=== PATIENT | female | born 1945 | race Caucasian/White ===

== ENCOUNTER → 2016-09-22 | Outpatient (CLI) | payer MEDICARE, BC ==
[~2016-09-22] MED LIST: ACYC200C PO; ASP325TEC PO; ASP81CT PO; ASPI-983 PO; ATEN-147 PO; ATEN-156 PO; ATOR40TA PO; AZEL50GE5 TP; BNZ10T PO; BNZ40T PO; CLON0.1T PO; CLOP75TA PO; CLOP75TA69 PO; CODE118S2 PO; D50KC PO; DCS100C PO; EST05TD TD; ESTR42.52 VG; FLUC200T PO; FLUO15CR8 TP; HYDR200T PO; HYDROCORTISONE VAL; KENALOG; MULT1CAP27 PO; NYST1000 PO; PNT40TEC PO; SENN8.6T17 PO; SPIR25TA3 PO; UBID100C17 PO; [UNRECOGNIZED DRUG - CODE] IJ; [UNRECOGNIZED DRUG - CODE] TP; clindamycin
--- OUTSIDE RECORDS SUMMARY | 2016-09-22 12:47 | XMS REPORT | Continuity of Care Document ---
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 If you do not see the information that you expected, contact Release of Information in the Health Information Management department at [phone] for further assistance in locating additional records.[facility] Active Allergies and Adverse Reactions Allergen Noted Date Severity Reactions Comments Beta Blockers 05/28/2014 PALPITATIONS Calcium Channel Blocking 05/28/2014 PALPITATIONS Agent Diltiazem Analogues Carafate 06/18/2014 ITCHING Cardizem 05/28/2014 RASH Celexa 06/18/2014 DIZZINESS Ciprofloxacin 06/18/2014 STOMACH UPSET Reflux Clindamycin 06/18/2014 RASH Darvocet 05/28/2014 NAUSEA AND VOMITING Epinephrine 05/28/2014 UNKNOWN Erythromycin 05/28/2014 NAUSEA AND VOMITING Keflex 06/18/2014 ITCHING Lanoxin 05/28/2014 PALPITATIONS Levofloxacin 01/10/2016 Low UNKNOWN Metronidazole 10/22/2014 Medium RASH Mycophenolate Sodium 01/10/2016 Low UNKNOWN Naproxen 05/28/2014 UNKNOWN Oxybutynin 06/18/2014 SEE COMMENTS Dry mouth Pcn 05/28/2014 HEADACHE, NAUSEA AND VOMITING Prednisone 05/28/2014 UNKNOWN Prilosec 05/28/2014 STOMACH UPSET Reglan 05/28/2014 UNKNOWN Seldane 05/28/2014 RASH Verapamil 06/18/2014 NAUSEA AND VOMITING, PALPITATIONS Current Medications Prescription Sig. Disp. Refills Start End Date Status Date aspirin EC 81 mg tablet Take 81 mg by mouth at Active bedtime daily. estradiol (CLIMARA) 0.05 Apply 1 Patch to top of Active mg/24 hr patch skin as directed every 7 days. atorvastatin (LIPITOR) 40 Take 40 mg by mouth at Active mg tablet bedtime daily. clopiDOGrel (PLAVIX) 75 Take 75 mg by mouth every Active mg tablet 48 hours. cholecalciferol(+) Take 50,000 Units by Active (Vitamin D3) 50,000 units mouth every 7 days. capsule benazepril(+) (LOTENSIN) Take 10 mg by mouth Active 10 mg tablet daily. fluconazole (DIFLUCAN) Take 200 mg by mouth Active 200 mg tablet every [address] Take 40 mg by mouth as Active (PROTONIX) 40 mg tablet Needed. TRIAMCINOLONE ACETONIDE Inject to area(s) as Active (KENALOG IJ) directed every 30 days. azelaic acid(+) (FINACEA) Apply to affected area Active 15 % gel topical gel daily. cloNIDine HCl (CATAPRESS) Take 0.1 mg by mouth Active 0.1 mg tablet daily. verapamil SR (VERELAN) Take 1 Cap by mouth 180 Cap 1 01/10/20 Active 120 mg capsule daily. if tolerated, 16 increase to 2 daily after 1 week Active Problems Problem Noted Date SVT (supraventricular tachycardia) (HCC) 06/18/2014 Overview: 06/18/14 EPS + SVT RFA: 1. 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 2. Successful AVN Modification/ Slow Pathway Ablation. 3. At the completion of the procedure, No slow pathway function was present and no inducible arrhythmias despite isuprel administration. History of PSVT (paroxysmal supraventricular tachycardia) 05/28/2014 Overview: Unable to tolerate calcium channel blockers, beta blockers and lanoxin. Has previously refused any EP evaluation. CAD (coronary artery disease) Overview: A. 01/2008: Cath: WAGNER to RCA B. 05/2013: Cath: relatively mild CAD, widely patent stent in RCA without any significant stent restenosis. LVEF 65-70%. 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 Respiratory Rate - - Height 1.651 m (5' 5") 01/10/2016 9:36 AM CDT Weight 83.235 kg (183 lb 8 oz) 01/10/2016 9:36 AM CDT Body Mass Index 30.54 01/10/2016 9:36 AM CDT Oxygen Saturation 95% 06/19/2014 9:12 AM MACHINE FANCY STITCHER Plan of Care Health Maintenance Due Date Last Done Comments Hepatitis C Screening 1945 Physical (Comprehensive) 1952 Exam Pertussis Vaccine 1956 Tetanus Vaccine 1962 Breast Cancer Screening 1985 Colorectal Cancer 1995 Screening Shingles Vaccine 2005 Osteoporosis Screening 2010 Prevnar/Pneumovax (#1) 2010 Influenza Vaccine 03/16/2016 Results from Last 3 Months Not on file
--- NOTE | 2016-09-25 17:30 | Diagnostic Imaging Report ---
Bilateral screening mammogram. The current study was also evaluated with a Computer Aided Detection (CAD) system. INDICATION: Screening. No current complaints stated on the questionnaire. COMPARISON: 08/31/14. FINDINGS: The breasts are composed of scattered fibroglandular densities. There are benign-appearing calcifications seen. No mass, architectural distortion or suspicious cluster of calcification. Allowing for technique and positional differences, no suspicious change is seen. IMPRESSION: No significant change. ACR BI-RADS Category 2: Benign findings. Result letter will be mailed to the patient. Note: At least 10% of breast cancer is not imaged by mammography. Dictated by: Dictated on workstation # [id number]
== END ==
LOC: RAD 12:43
PROVIDERS: ATTEND Obstetrics & Gynecology
DX: Z12.31 Encounter for screening mammogram for malignant neoplasm of breast (principal)
CPT/HCPCS: 77067

== ENCOUNTER → 2017-06-11 | Outpatient (CLI) | payer MEDICARE, BC ==
[~2017-06-11] MED LIST changes: +ERGO50006 PO
--- NOTE | 2017-06-11 21:07 | Diagnostic Imaging Report ---
EXAMINATION: Three views of the right knee. INDICATION: Right knee pain. FINDINGS: There is no fracture, dislocation, or radiopaque foreign body. Prominent osteophytes are seen mostly in the lateral and patellofemoral compartments. There is suggestion of joint space narrowing in the patellofemoral compartment. No significant suprapatellar effusion is identified. IMPRESSION: Trib-ao-nwzkduvl degenerative changes. Dictated by: Dictated on workstation # [id number]
== END ==
LOC: RAD 10:54
PROVIDERS: ATTEND Nurse Practitioner Family
DX: M17.11 Unilateral primary osteoarthritis, right knee (principal)
CPT/HCPCS: 73562

== ENCOUNTER → 2018-05-21 | Outpatient (CLI) | payer MEDICARE, BC ==
[~2018-05-21] VITALS: Ht 165.1 cm; Wt 82.6 kg
[~2018-05-21] MED LIST changes: +CATHETER FLUSH 10 ML SYR IV PRN; -HYDR200T PO; +HYDR200T78 PO; +REGADENOSON 0.4 MG/5 ML SYR (LEXISCAN) IV ONE
[2018-05-21 08:59] VITALS: BP 167/75
[2018-05-21 09:16] VITALS: BP 173/80
--- NOTE | 2018-05-22 09:12 | STRESS TEST ---
DATE OF SERVICE: 05/21/2018 RESTING AND POST REGADENOSON TECHNETIUM-99M TETROFOSMIN SPECT CT IMAGING ORDERING PHYSICIAN: Dr. Cui. PRIMARY PHYSICIAN: Dr. Verde. CLINICAL DIAGNOSIS: Coronary artery disease. Baseline images were carried out after injection of 8.59 mCi of technetium-99m Tetrofosmin. This was followed by 0.4 mg of Regadenoson and 27.7 mCi of technetium-99m Tetrofosmin for stress imaging. The electrocardiogram showed sinus rhythm with left bundle branch block at the baseline and the electrocardiogram did not change significantly with the Regadenoson infusion. The patient tolerated the procedure well. Review of images at rest and following stress indicates a somewhat diminished uptake in a very localized portion of the apex likely traveling representative of apical thinning. This did not change between resting and stress images. Gated images show a normal global left ventricular systolic function with normal regional wall motion, including the apex. Left ventricular ejection fraction is calculated to be 73%. Left ventricular end diastolic volume is 40 mL. TID is absent (0.91). CONCLUSIONS: 1. No evidence of any significant myocardial ischemia or infarction on this study. 2. Normal regional wall motion. 3. Normal global left ventricular systolic function with a calculated ejection fraction of 73%. Job ID: [id number] DocumentID: [id number] Dictated Date: 05/22/2018 08:37:08 Direct Support Professional Date: 05/22/2018 09:11:16 Dictated By: ANUPAM CUI MD, MA, FACP, FACC,
== END ==
LOC: CARD 06:57
PROVIDERS: ATTEND Internal Medicine Cardiovascular Disease
DX: I95.1 Orthostatic hypotension (principal); I10 Essential (primary) hypertension; I25.10 Atherosclerotic heart disease of native coronary artery without angina pectoris; I77.89 Other specified disorders of arteries and arterioles; Z86.79 Personal history of other diseases of the circulatory system
CPT/HCPCS: 78452; 93017

== ENCOUNTER → 2018-06-21 | Outpatient (CLI) | payer MEDICARE, BC ==
[~2018-06-21] MED LIST changes: -CATHETER FLUSH 10 ML SYR IV PRN; -REGADENOSON 0.4 MG/5 ML SYR (LEXISCAN) IV ONE
== END ==
LOC: CARD 09:31
PROVIDERS: ATTEND Internal Medicine Cardiovascular Disease
DX: I95.1 Orthostatic hypotension (principal); I10 Essential (primary) hypertension; I25.10 Atherosclerotic heart disease of native coronary artery without angina pectoris; I77.89 Other specified disorders of arteries and arterioles; Z86.79 Personal history of other diseases of the circulatory system; I08.3 Combined rheumatic disorders of mitral, aortic and tricuspid valves
CPT/HCPCS: 93306

== ENCOUNTER → 2018-06-28 | Outpatient (CLI) | payer MEDICARE, BC ==
--- NOTE | 2018-06-28 11:18 | Diagnostic Imaging Report ---
Indication: Screening. The current study was also evaluated with a Computer Aided Detection (CAD) system. Comparison made with prior examination of 09/22/2016 back through 07/05/2011. Findings: There are scattered fibroglandular densities bilaterally. There are a few benign type calcifications. There is no dominant mass, spiculated lesion, or calcification identified. Skin, nipples and axilla are unremarkable. Impression: Category 2 benign ACR BI-RADS Category 2: Benign findings. Result letter will be mailed to the patient. Note: At least 10% of breast cancer is not imaged by mammography. Dictated by: Dictated on workstation # [id number]
== END ==
LOC: RAD 08:06
PROVIDERS: ATTEND Obstetrics & Gynecology
DX: Z12.31 Encounter for screening mammogram for malignant neoplasm of breast (principal)
CPT/HCPCS: 77067

== ENCOUNTER → 2018-07-24 | Outpatient (CLI) | payer MEDICARE, BC ==
[~2018-07-24] MED LIST changes: +RT-ALBUTEROL SULF 2.5 MG/3 ML PRE-MIX VIAL INH ONE
== END ==
LOC: RT 12:55
PROVIDERS: ATTEND Internal Medicine Critical Care Medicine
DX: I27.20 Pulmonary hypertension, unspecified (principal); G47.30 Sleep apnea, unspecified
CPT/HCPCS: 94060; 94726; 94729

== ENCOUNTER 2018-09-05 19:48 | Outpatient (CLI) | payer MEDICARE, BC ==
[~2018-09-05 19:48] MED LIST changes: -RT-ALBUTEROL SULF 2.5 MG/3 ML PRE-MIX VIAL INH ONE
== END 2018-09-06 06:02 | disposition home or self-care (01) ==
LOC: SLEEP 19:48
PROVIDERS: ATTEND Nurse Practitioner Family
DX: G47.33 Obstructive sleep apnea (adult) (pediatric) (principal); R09.02 Hypoxemia; I27.20 Pulmonary hypertension, unspecified
CPT/HCPCS: 95811

== ENCOUNTER → 2018-09-16 | Outpatient (CLI) | payer MEDICARE, BC ==
--- NOTE | 2018-09-16 09:18 | Diagnostic Imaging Report ---
INDICATION: Nocturnal hypoxemia and sleep apnea. TIME OF EXAM: 8:56 AM Correlation is made with prior chest from 12/22/2008. FINDINGS: Heart size is normal. The lungs are clear. No pulmonary infiltrates are detected. The pulmonary vascularity is normal. No effusion or pneumothorax is detected. IMPRESSION: No acute cardiopulmonary process is detected. Dictated by: Dictated on workstation # [id number]
== END ==
LOC: RAD 08:49
PROVIDERS: ATTEND Nurse Practitioner Family
DX: G47.33 Obstructive sleep apnea (adult) (pediatric) (principal); I27.29 Other secondary pulmonary hypertension; G47.34 Idiopathic sleep related nonobstructive alveolar hypoventilation
CPT/HCPCS: 71046

== ENCOUNTER → 2020-11-05 | Outpatient (CLI) | payer MEDICARE, BC ==
[~2020-11-05] MED LIST changes: +ASPI-1238 PO; -ASPI-983 PO; +CLN.1T PO; -CLON0.1T PO
--- NOTE | 2020-11-05 15:41 | Diagnostic Imaging Report ---
INDICATION: Routine screening. COMPARISON is made with prior mammograms 06/28/2018 and 09/22/2016. 2-D and 3-D bilateral screening mammography was performed with CAD. Scattered fibroglandular densities are identified bilaterally. Benign-appearing nodule in the medial left breast is stable. There are scattered benign calcifications in both breasts. No spiculated mass or malignant appearing microcalcifications are seen. Axillae are unremarkable. IMPRESSION: BI-RADS Category 2 No mammographic features suspicious for malignancy are identified. ACR BI-RADS Category 2: Benign findings. Result letter will be mailed to the patient. Note: At least 10% of breast cancer is not imaged by mammography. Dictated by: Dictated on workstation # [id number]
== END ==
LOC: RAD 11:15
DX: Z12.31 Encounter for screening mammogram for malignant neoplasm of breast (principal)
CPT/HCPCS: 77063; 77067

== ENCOUNTER 2021-02-22 11:34 | Emergency (ER) | payer MEDICARE, BC ==
[~2021-02-22] VITALS: Ht 165.1 cm; Wt 79.3 kg
[2021-02-22 12:22] LABS: BASOPHILS # (AUTO) 0.1 10^3/uL (0.0-0.1); BASOPHILS % (AUTO) 1 % (0-10); EOSINOPHILS # (AUTO) 0.2 10^3/uL (0.0-0.3); EOSINOPHILS % (AUTO) 2 % (0-10); HEMATOCRIT 47 % (35-52); HEMOGLOBIN 15.1 g/dL (11.5-16.0); LYMPHOCYTES # (AUTO) 1.7 10^3/uL (1.0-4.0); LYMPHOCYTES % (AUTO) 19 % (12-44); MEAN CORPUSCULAR HEMOGLOBIN 30 pg (25-34); MEAN CORPUSCULAR HGB CONC 32 g/dL (32-36); MEAN CORPUSCULAR VOLUME 92 fL (80-99); MEAN PLATELET VOLUME 10.5 fL (9.0-12.2); MONOCYTES # (AUTO) 0.8 10^3/uL (0.0-1.0); MONOCYTES % (AUTO) 8 % (0-12); NEUTROPHILS # (AUTO) 6.2 10^3/uL (1.8-7.8); NEUTROPHILS % (AUTO) 69 % (42-75); PLATELET COUNT 310 10^3/uL (130-400); WHITE BLOOD COUNT 8.9 10^3/uL (4.3-11.0)
[2021-02-22 12:31] LABS: ALBUMIN 4.2 GM/DL (3.2-4.5)
[2021-02-22 12:32] LABS: CHLORIDE 108 MMOL/L (98-107); POTASSIUM 4.1 MMOL/L (3.6-5.0); SODIUM 140 MMOL/L (135-145)
[2021-02-22 12:33] LABS: CALCIUM 9.6 MG/DL (8.5-10.1)
[2021-02-22 12:34] LABS: GLUCOSE 118 MG/DL (70-105); TOTAL PROTEIN 7.6 GM/DL (6.4-8.2)
[2021-02-22 12:35] LABS: CARBON DIOXIDE 19 MMOL/L (21-32)
[2021-02-22 12:36] LABS: BILIRUBIN,TOTAL 0.4 MG/DL (0.1-1.0)
[2021-02-22 12:37] LABS: ALKALINE PHOSPHATASE 74 U/L (40-136)
[2021-02-22 12:37] LABS: BILIRUBIN,URINE NEGATIVE (NEGATIVE); CLARITY,URINE CLEAR; COLOR,URINE YELLOW; GLUCOSE, URINE (UA) NEGATIVE (NEGATIVE); KETONES,URINE NEGATIVE (NEGATIVE); LEUKOCYTE ESTERASE ,URINE NEGATIVE (NEGATIVE); NITRITE,URINE NEGATIVE (NEGATIVE); PH,URINE 6.5 (5-9); PROTEIN,URINE NEGATIVE (NEGATIVE)
[2021-02-22 12:38] LABS: CREATININE SERUM 0.84 MG/DL (0.60-1.30); GFR ESTIMATED 66
[2021-02-22 12:39] LABS: BUN/CREATININE RATIO 19
[2021-02-22 12:41] LABS: ALANINE AMINOTRANSFERASE 19 U/L (0-55)
--- NOTE | 2021-02-22 12:54 | ED Respiratory ---
General Chief Complaint: Respiratory Problems Stated Complaint: SOA Nursing Triage Note: C/O SOB WITH EXERTION. STATES SHE WAS STUNG BY 20 YELLOW JACKETS ON THE February ADN SINCE THEN HAS HAD SOME CONGESTION ON SUNDAY AND COUGH BUT HAS RESOLVED SINCE. TODAY VERBALIZES SHE BECAME SHORT OF BREATH WITH MILD ACTIVITY. PATIENT APPEARS SOB WALKING FROM WAITING ROOM TO ROOM 9. PATIENT PROVIDES DETAILED MEDICAL HISTORY ON PAPER. Source: patient Exam Limitations: no limitations (JOZEF MAGALLANES APRN) History of Present Illness Date Seen by Provider: Feb 22, 2021 Time Seen by Provider: 12:52 Initial Comments To ER from Dr. Holcomb's office with reports of shortness of breath especially on exertion for the past few days accompanied by hypertension. She was stung by 10-12 hornets on Sunday of last week. She saw Dr. Holcomb in the clinic about 1 hour after that happened and was given an injection of dexamethasone 8 mg. She is been using Benadryl in the interim. The itching and pain has gone away but she feels short of breath mostly with exertion today. She also complains of feeling "jittery on the inside" but adamantly denies any anxiety. Timing/Duration: constant Severity: moderate Associated Symptoms: No cough, No fever/chills; shortness of breath (JOZEF MAGALLANES APRN) Allergies and Home Medications Allergies Coded Allergies: Penicillins (Verified Allergy, Unknown, GALARZA,N,DIZZY,RASH, 11/28/05) citalopram hydrobromide (Verified Allergy, Unknown, rebound headache and dizzy, 11/05/20) diltiazem (Verified Allergy, Unknown, RASH,ITCHING, 11/28/05) methylprednisolone (Verified Allergy, Unknown, GALARZA, RASH, 11/28/05) omeprazole magnesium (Verified Allergy, Unknown, severe stomach ache, 11/05/20) propranolol (Verified Allergy, Unknown, DEPRESSION,RASH,HEADACHE, 11/28/05) sucralfate (Verified Allergy, Unknown, RASH,ITCHING, 11/28/05) terfenadine (Verified Allergy, Unknown, SEVERE HIVES/RASH, 11/28/05) acetaminophen (Verified Adverse Reaction, Unknown, NAUSEA/HEADACHE, 11/28/05) cephalexin (Unverified Adverse Reaction, Unknown, ITCHING, 11/05/20) ciprofloxacin (Unverified Adverse Reaction, Unknown, SEVERE STOMACH ACHE AND RELUX, 11/05/20) clindamycin (Unverified Adverse Reaction, Unknown, BURNING RASH ON FACE, 11/05/20) codeine (Verified Adverse Reaction, Unknown, NAUSEA/HEADACHE, 11/28/05) dicloxacillin (Unverified Adverse Reaction, Unknown, HEADACHE/NAUSEA, 11/05/20) digoxin (Verified Adverse Reaction, Unknown, JITTERY, PALPITATIONS, 11/28/05) epinephrine (Verified Adverse Reaction, Unknown, LIGHTHEADEDNESS, 11/28/05) erythromycin base (Verified Adverse Reaction, Unknown, NAUSEA, 11/28/05) hydrocodone (Verified Adverse Reaction, Unknown, DIZZINESS, NAUSEA, 11/28/05) medroxyprogesterone (Verified Adverse Reaction, Unknown, WT. GAIN, 11/28/05) metoclopramide (Verified Adverse Reaction, Unknown, BLURRED VISION, 11/28/05) omeprazole (Verified Adverse Reaction, Unknown, SEVERE STOMACHACHE/GALARZA, 11/28/05) oxybutynin (Unverified Adverse Reaction, Unknown, EXTREME DRY MOUTH, 11/05/20) propoxyphene (Verified Adverse Reaction, Unknown, GALARZA, N, DIZZY, 11/28/05) verapamil (Verified Adverse Reaction, Unknown, JITERY,PALPITATIONS, 11/28/05) Home Medications Aspirin 81 Mg Tablet.dr, 81 MG PO DAILY, (Reported) Atorvastatin Calcium 40 Mg Tablet, 40 MG PO DAILY, (Reported) Azelaic Acid 50 Gm Gel..gram., TP DAILY, (Reported) Benazepril Hcl 10 Mg Tablet, 10 MG PO DAILY, (Reported) HOLD IF SYSTOLIC BP LESS <100 Clonidine HCl 0.1 Mg Tablet, 0.1 MG PO BID, (Reported) Clopidogrel Bisulfate 75 Mg Tablet, 75 MG PO EVERY OTHER DAY, (Reported) Ergocalciferol (Vitamin D2) 50,000 Unit Capsule, 50,000 UNIT PO WEEKLY ON SUNDAYS, (Reported) Estradiol 0.05 Mg Patch, 0.05 MG TD WEEKLY ON SUNDAYS, (Reported) Estradiol 42.5 Gm Cream.appl, VG WEEKLY ON SUNDAYS, (Reported) Fluconazole 200 Mg Tablet, 200 MG PO WEEKLY ON SUNDAY, (Reported) Hydroxychloroquine Sulfate 200 Mg Tablet, 200 MG PO BID, (Reported) Sennosides 8.6 Mg Tablet, 2 TAB PO DAILY PRN for CONSTIPATION, (Reported) Triamcinolone Acet 50 Mg/5 Ml Inj, IJ UD PRN for PAIN/HAIR LOSS, (Reported) Patient Home Medication List Home Medication List Reviewed: Yes (JOZEF MAGALLANES APRN) Review of Systems Review of Systems Constitutional: see HPI EENTM: see HPI Respiratory: see HPI, dyspnea on exertion Cardiovascular: see HPI; No chest pain Genitourinary: no symptoms reported Musculoskeletal: no symptoms reported Skin: no symptoms reported Psychiatric/Neurological: No Symptoms Reported Hematologic/Lymphatic: No Symptoms Reported Immunological/Allergic: no symptoms reported (JOZEF MAGALLANES APRN) Past Ynsnefg-Othcby-Zsyoku Hx Patient Social History Tobacco Use?: No Use of E-Cig and/or Vaping dev: No Substance use?: No Alcohol Use?: No Pt feels they are or have been: No (JOZEF MAGALLANES APRN) Immunizations Up To Date Influenza Vaccine Up-to-Date: Yes; Up-to-Date First/Initial COVID19 Vaccinat: AUG 2020 Second COVID19 Vaccination Lance: SEPTEMBER 2020 COVID19 Vaccine Compliance Mgr: MODERNA (JOZEF MAGALLANES APRN) Past Medical History Sleep Apnea Reproductive Disorders: No Gastroesophageal Reflux, Gall Bladder Disease (JOZEF MAGALLANES APRN) Physical Exam Vital Signs - First Documented 02/22/21 11:40 Temp 36.9 Pulse 102 Resp 20 B/P (MAP) 148/102 (117) Pulse Ox 97 O2 Delivery Room Air (VASU TRAORE MD) Capillary Refill : (JOZEF MAGALLANES APRN) Height: 5'5.00" Weight: 182lbs. 0.0oz. 82.523318fx; 29.00 BMI Method: General Appearance: WD/WN, no apparent distress, other (Anxious appearing heart rate 101. Blood pressure 205/101. No rash. Alert and oriented very pleasant no distress lungs are clear oxygen saturation 97% room air) Eyes: Bilateral Eye Normal Inspection, Bilateral Eye PERRL HEENT: PERRL/EOMI, normal ENT inspection Neck: non-tender, full range of motion Respiratory: normal breath sounds, no respiratory distress, no accessory muscle use Cardiovascular: no murmur, tachycardia Gastrointestinal: normal bowel sounds, non tender, soft Neurologic/Psychiatric: alert, normal mood/affect, oriented x 3 Skin: normal color, warm/dry (JOZEF MAGALLANES APRN) Progress/Results/Core Measures Suspected Sepsis SIRS Temperature: Pulse: 102 Respiratory Rate: 20 Laboratory Tests 02/22/21 11:56: White Blood Count 8.9 Blood Pressure 148 /102 Mean: 117 Laboratory Tests 02/22/21 11:56: Creatinine 0.84, Platelet Count 310, Total Bilirubin 0.4 (JOZEF MAGALLANES APRN) Results/Orders Lab Results Laboratory Tests Test 02/22/21 11:49 02/22/21 11:56 02/22/21 12:26 Range/Units Influenza Type A (RT-PCR) Not Detected Not Detecte Influenza Type B (RT-PCR) Not Detected Not Detecte SARS-CoV-2 RNA (RT-PCR) Not Detected Not Detecte White Blood Count 8.9 4.3-11.0 10^3/uL Red Blood Count 5.10 3.80-5.11 10^6/uL Hemoglobin 15.1 11.5-16.0 g/dL Hematocrit 47 35-52 % Mean Corpuscular Volume 92 80-99 fL Mean Corpuscular Hemoglobin 30 25-34 pg Mean Corpuscular Hemoglobin Concent 32 32-36 g/dL Red Cell Distribution Width 14.6 H 10.0-14.5 % Platelet Count 310 130-400 10^3/uL Mean Platelet Volume 10.5 9.0-12.2 fL Immature Granulocyte % (Auto) 1 % Neutrophils (%) (Auto) 69 42-75 % Lymphocytes (%) (Auto) 19 12-44 % Monocytes (%) (Auto) 8 0-12 % Eosinophils (%) (Auto) 2 0-10 % Basophils (%) (Auto) 1 0-10 % Neutrophils # (Auto) 6.2 1.8-7.8 10^3/uL Lymphocytes # (Auto) 1.7 1.0-4.0 10^3/uL Monocytes # (Auto) 0.8 0.0-1.0 10^3/uL Eosinophils # (Auto) 0.2 0.0-0.3 10^3/uL Basophils # (Auto) 0.1 0.0-0.1 10^3/uL Immature Granulocyte # (Auto) 0.1 0.0-0.1 10^3/uL Sodium Level 140 135-145 MMOL/L Potassium Level 4.1 3.6-5.0 MMOL/L Chloride Level 108 H 98-107 MMOL/L Carbon Dioxide Level 19 L 21-32 MMOL/L Anion Gap 13 5-14 MMOL/L Blood Urea Nitrogen 16 7-18 MG/DL Creatinine 0.84 0.60-1.30 MG/DL Estimat Glomerular Filtration Rate 66 BUN/Creatinine Ratio 19 Glucose Level 118 H 70-105 MG/DL Calcium Level 9.6 8.5-10.1 MG/DL Corrected Calcium 9.4 8.5-10.1 MG/DL Total Bilirubin 0.4 0.1-1.0 MG/DL Aspartate Amino Transf (AST/SGOT) 20 5-34 U/L Alanine Aminotransferase (ALT/SGPT) 19 0-55 U/L Alkaline Phosphatase 74 40-136 U/L Troponin I < 0.028 <0.028 NG/ML B-Type Natriuretic Peptide 323.8 H <100.0 PG/ML Total Protein 7.6 6.4-8.2 GM/DL Albumin 4.2 3.2-4.5 GM/DL Urine Color YELLOW Urine Clarity CLEAR Urine pH 6.5 5-9 Urine Specific [place] <=1.005 1.016-1.022 Urine Protein NEGATIVE NEGATIVE Urine Glucose (UA) NEGATIVE NEGATIVE Urine Ketones NEGATIVE NEGATIVE Urine Nitrite NEGATIVE NEGATIVE Urine Bilirubin NEGATIVE NEGATIVE Urine Urobilinogen 0.2 < = 1.0 MG/DL Urine Leukocyte Esterase NEGATIVE NEGATIVE Urine RBC (Auto) NEGATIVE NEGATIVE Urine RBC NONE /HPF Urine WBC 0-2 /HPF Urine Squamous Epithelial Cells 0-2 /HPF Urine Crystals NONE /LPF Urine Bacteria TRACE /HPF Urine Casts NONE /LPF Urine Mucus NEGATIVE /LPF Urine Culture Indicated NO (VASU TRAORE MD) Medications Given in ED Current Medications Medications Dose Ordered Sig/Bee Route Start Time Stop Time Status Last Admin Dose Admin Metoprolol Tartrate 5 mg ONCE ONCE IV 02/22/21 13:00 02/22/21 13:01 DC 02/22/21 13:01 5 MG (VASU TRAORE MD) Vital Signs/I&O 02/22/21 02/22/21 11:40 13:41 Temp 36.9 Pulse 102 74 Resp 20 20 B/P (MAP) 148/102 (117) 147/74 (117) Pulse Ox 97 97 O2 Delivery Room Air Room Air (VASU TRAORE MD) Vital Signs/I&O Capillary Refill : (JOZEF MAGALLANES APRN) Blood Pressure Mean: 117 Departure Impression Primary Impression: Hypertension Disposition: 01 HOME, SELF-CARE Condition: Stable Departure-Patient Inst. Referrals: ANAMARIA HOLCOMB MD (PCP/Family) Primary Care Physician ATTENDING PHYSICIAN NOTE: I was physically present as attending physician in the emergency department during the care of this patient, but I was not directly involved in the decision making or delivery of care for this patient. (VASU TRAORE MD) Copy Copies To 1: ANAMARIA HOLCOMB MD, PETER J APRN Feb 22, 2021 12:54 VASU TRAORE MD Feb 22, 2021 19:45
[2021-02-22] MEDS ORDERED: meTOprolol 5 MG/5 ML (LOPRESSOR) VIAL IV ONE (13:00)
[2021-02-22 13:12] LABS: BACTERIA,URINE TRACE /HPF; SQUAMOUS EPITHELIAL CELL,UR 0-2 /HPF; WBC,URINE 0-2 /HPF
[2021-02-22 13:41] VITALS: BP 147/74
--- NOTE | 2021-02-22 14:21 | Diagnostic Imaging Report ---
INDICATION: Shortness of breath. EXAMINATION: Portable chest at 12:31 p.m. FINDINGS: Heart size and pulmonary vascularity are normal. Lungs are clear. There are no effusions or pneumothoraces. IMPRESSION: Negative chest. Dictated by: Dictated on workstation # [id number]
== END 2021-02-22 13:44 | disposition home or self-care (01) ==
LOC: EDUNIT# 11:34 → ER 11:35
DX: I10 Essential (primary) hypertension (principal); G47.30 Sleep apnea, unspecified; Z20.822 Contact with and (suspected) exposure to COVID-19; Z79.82 Long term (current) use of aspirin; Z79.01 Long term (current) use of anticoagulants
CPT/HCPCS: 36415; 71045; 80053; 81000; 83880; 84484; 85025; 87636

== ENCOUNTER → 2021-05-27 | Outpatient (CLI) | payer MEDICARE, BC | LOC: CARD 12:00 | PROVIDERS: ATTEND Internal Medicine Cardiovascular Disease | DX: I08.0 Rheumatic disorders of both mitral and aortic valves (principal); I27.21 Secondary pulmonary arterial hypertension | CPT/HCPCS: 93306 ==

== ENCOUNTER → 2021-08-24 | Outpatient (CLI) | payer MEDICARE, BC ==
[~2021-08-24] MED LIST changes: +RT-ALBUTEROL SULF 2.5 MG/3 ML PRE-MIX VIAL INH ONE
--- NOTE | 2021-08-24 15:42 | Diagnostic Imaging Report ---
INDICATION: Pulmonary hypertension. COMPARISON: 02/22/2021 FINDINGS: Frontal and lateral views of the chest demonstrate normal heart size and pulmonary vascularity. The lungs are clear. There are no signs of infiltrate, pleural effusions or pneumothoraces. The visualized osseous structures show no acute abnormalities. IMPRESSION: No acute process. No signs of infiltrates, effusions or pneumothoraces. Dictated by: Dictated on workstation # [id number]
== END ==
LOC: RT 14:15
PROVIDERS: ATTEND Internal Medicine Critical Care Medicine
DX: I27.20 Pulmonary hypertension, unspecified (principal)
CPT/HCPCS: 71046; 94060; 94621; 94726; 94729

== ENCOUNTER → 2021-09-06 | Outpatient (CLI) | payer MEDICARE, BC ==
[~2021-09-06] MED LIST changes: +CATHETER FLUSH 10 ML SYR IV PRN; -RT-ALBUTEROL SULF 2.5 MG/3 ML PRE-MIX VIAL INH ONE
--- NOTE | 2021-09-06 11:15 | Diagnostic Imaging Report ---
INDICATION: Pulmonary hypertension. TECHNIQUE: Perfusion study only was performed. 5.3 mCi Tc-99m MAA was given IV. COMPARISON: Comparison with chest x-ray of 08/24/2021. FINDINGS: There is uniform uptake throughout the right and left lung. There are no segmental or subsegmental defects. IMPRESSION: Perfusion scan only showing no defects that would suggest PE. Low probability. Dictated by: Dictated on workstation # [id number]
== END ==
LOC: CARD 10:00
PROVIDERS: ATTEND Internal Medicine Critical Care Medicine
DX: I27.20 Pulmonary hypertension, unspecified (principal)
CPT/HCPCS: 78580; A9540

== ENCOUNTER 2021-09-13 08:00 | Day surgery (SDC) | payer MEDICARE, BC ==
[2021-09-13] VITALS (8 sets, daily range): BP systolic 124–168; BP diastolic 68–97
[~2021-09-13] VITALS: Ht 165.1 cm; Wt 85.7 kg
[2021-09-13 07:28] LABS: HEMATOCRIT 51 % (35-52); HEMOGLOBIN 16.7 g/dL (11.5-16.0); MEAN CORPUSCULAR HEMOGLOBIN 29 pg (25-34); MEAN CORPUSCULAR HGB CONC 33 g/dL (32-36); MEAN CORPUSCULAR VOLUME 88 fL (80-99); MEAN PLATELET VOLUME 9.9 fL (9.0-12.2); PLATELET COUNT 282 10^3/uL (130-400); WHITE BLOOD COUNT 8.6 10^3/uL (4.3-11.0)
[2021-09-13 07:49] LABS: ALANINE AMINOTRANSFERASE 26 U/L (0-55); ALBUMIN 4.6 GM/DL (3.2-4.5); ALKALINE PHOSPHATASE 83 U/L (40-136); BILIRUBIN,TOTAL 0.9 MG/DL (0.1-1.0); BUN/CREATININE RATIO 23; CARBON DIOXIDE 18 MMOL/L (21-32); CHLORIDE 108 MMOL/L (98-107); CHOLESTEROL 160 MG/DL (< 200); GFR ESTIMATED 43; GLUCOSE 104 MG/DL (70-105); HDL CHOLESTEROL 55 MG/DL (40-60); POTASSIUM 4.2 MMOL/L (3.6-5.0); SODIUM 139 MMOL/L (135-145); TOTAL PROTEIN 7.6 GM/DL (6.4-8.2); TRIGLYCERIDES 83 MG/DL (<150); VLDL CHOLESTEROL 17 MG/DL (5-40)
[2021-09-13 07:50] LABS: INR 0.9 (0.8-1.4)
[~2021-09-13 08:00] MED LIST changes: -CATHETER FLUSH 10 ML SYR IV PRN; +HEParin (CATH LAB) 2,000 ML IV ONE; +LIDOCAINE 1% INJ 50 ML (XYLOCAINE) VIAL ONE; +MIDAZOLAM 5 MG/5 ML (VERSED) VIAL ONE; +NS IV 1000 ML 1,000 ML IV SCH; +NS IV 1000 ML 1,000 ML ONE; +fentaNYL INJ 100 MCG/2 ML AMP ONE
[2021-09-13] MEDS ORDERED: MINO100T10 PO (08:17)
[2021-09-13] MEDS ORDERED: LATA7.5D OU (08:17)
[2021-09-13] MEDS ORDERED: BENA40TA59 PO (08:17)
[2021-09-13] MEDS ORDERED: CYAN50003 PO (08:17)
[2021-09-13] MEDS ORDERED: ERGO1250 PO (08:17)
[2021-09-13] MEDS ORDERED: IBUP-2473 PO (08:17)
[2021-09-13] MEDS ORDERED: CHOL500049 PO (08:17)
[2021-09-13] MEDS ORDERED: BUDE10.2 IH (08:17)
[2021-09-13] MEDS ORDERED: AMLO-251 PO (08:17)
[2021-09-13] MEDS ORDERED: MONT10TA21 PO (08:17)
[2021-09-13] MEDS ORDERED: ESTR1PAT90 TD (08:21)
[2021-09-13] MEDS ORDERED: POTA10CA43 PO (09:23)
[2021-09-13] MEDS ORDERED: FURO40TA4 PO (09:23)
--- NOTE | 2021-09-13 09:24 | Discharge Inst-Cardiology ---
Discharge Inst-Cardiac Discharge Medications New Medications: Furosemide (Furosemide) 40 Mg Tablet 40 MG PO every other day for 30 Days, #30 TAB 2 Refills Potassium Chloride (Potassium Chloride) 10 Meq Capsule.er 10 MEQ PO every other day, #30 CAP 2 Refills Continued Medications: Amlodipine Besylate (Amlodipine Besylate) 10 Mg Tablet 10 MG PO DAILY, TAB Aspirin (Aspirin EC) 81 Mg Tablet.dr 81 MG PO HS, TAB Azelaic Acid (Finacea) 50 Gm Gel..gram. 1 APPLIC TP DAILY PRN for ROSACEA, EA Benazepril HCl (Lotensin) 40 Mg Tablet 40 MG PO DAILY PRN for BLOOD PRESSURE, TAB TAKE IF BLOOD PRESSURE IS 100+ Budesonide/Formoterol Fumarate (Symbicort 160-4.5 Mcg Inhaler) 10.2 Gm Hfa.aer.ad 2 PUFF IH BID, EA Clonidine HCl (Clonidine HCl) 0.1 Mg Tablet 0.1 MG PO DAILY, TAB Cyanocobalamin (Vitamin B-12) (Vitamin B-12) 5,000 Mcg Tab.rapdis 5000 MCG PO DAILY, TAB Ergocalciferol (Vitamin D2) (Vitamin D2) 1,250 Mcg Capsule 1250 MCG PO SUNDAY, CAP Estradiol (Estradiol Patch Weekly 0.05mg/hr) 1 Each Patch.tdsw 1 EACH TD SUNDAY, PATCH Latanoprost/Pf (Latanoprost 0.005% Eye Drop) 7.5 Ml Drops 1 DROP OU HS, DROPS Minocycline HCl (Minocycline HCl) 100 Mg Tablet 100 MG PO BID PRN for ROSACEA, TAB Montelukast Sodium (Singulair) 10 Mg Tablet 10 MG PO HS, TAB Discontinued Medications: Ibuprofen (Ibuprofen) 200 Mg Tablet 600 MG PO Q6H PRN for PAIN-MILD (1-4), TAB ANUPAM BAILEY MD FACP [facility] Sep 13, 2021 09:24
--- NOTE | 2021-09-13 09:26 | Discharge Inst-Post CATH ---
Discharge Inst-CATH/EP Post Cardiac Cath/EP D/C Inst Follow Up/Plan f/u with Dr Cui on October 06, 2021 ACTIVITY * Go Home directly and rest. * Limit activity of the leg (or wrist if it was used) for 2 days including aerobics, swimming, jogging, bicycling, etc. * Restrict stair-climbing for 2 days if possible, if not, climb up with your non-cath leg, then bring together on the same step. * Avoid lifting, pushing, pulling or excessive movement of the affected extremity for 7 days. * Customary sexual activity may be resumed after 2 days-use caution not to use a position that strains or causes pain to the affected extremity. * NO SMOKING. * Avoid straining for bowel movements for 2 days. * Gentle walking on level ground is allowed. * Returning to work will depend on the type of procedure and the results. Your doctor will discuss this with you. CALL YOUR DOCTOR FOR ANY OF THE FOLLOWING: *If bleeding from the puncture site occurs- Apply gentle pressure to site with clean cloth and call your doctor or EMS. * If a knot or lump forms under the skin, increases in size, or causes pain. * If bruising appears to be worsening or moving further down your leg instead of disappearing. * Temperature above 101 F. CARE OF YOUR GROIN INCISION; * Bruising or purple discoloration of the skin near the puncture site is common. * You may shower only, no bathtub bathing for 5 days. Be careful to avoid slipping as your leg may feel stiff. * If a closure device was used on your femoral artery, please see the attached guide regarding care of the device and your leg. * Leave dressing on FOR 24 hours. ANUPAM CUI MD FACP [facility] Sep 13, 2021 09:26
--- NOTE | 2021-09-13 09:27 | Cardiac Procedure Note-CS/ASA ---
Pre-Procedure Note Pre-Op Procedure Note H&P Reviewed The H&P was reviewed, patient examined and no changes noted. Date H&P Reviewed: Sep 13, 2021 Time H&P Reviewed: 08:30 Conscious Sedation Pre-Proced Time 08:30 ASA Score 3 For ASA 3 and 4: Consider anesthesia and medical clearance. Also, for patients with a history of failed moderate sedation consider anesthesia. Airway Lungs Heart ASA score ASA 1: a normal healthy patient ASA 2: a patient with a mild systemic disease (mid diabetes, controlled hypertension, obesity ASA 3: a patient with a severe systemic disease that limits activity (angina, COPD, prior Myocardial infarction) ASA 4: a patient with an incapacitating disease that is a constant threat to life (CHF, renal failure) ASA 5: a moribund patient not expected to survive 24 hrs. (ruptured aneurysm) ASA 6: a declared brain- patient whose organs are being harvested. For emergent operations, add the letter E after the classification Mallampati Classification Grade 2 Sedation Plan Analgesia, Amnesia, Plan communicated to team members, Discussed options with patient/fam, Discussed risks with patient/fam The patient is an appropriate candidate to undergo the planned procedure, sedation, and anesthesia. The patient immediately re-assessed prior to indication. ANUPAM BAILEY MD FACP FAC CCDS Sep 13, 2021 09:27
[2021-09-13] MEDS ORDERED: NS IV 1000 ML 1,000 ML IV SCH (09:30)
[2021-09-13] MEDS ORDERED: PATIENT MAY USE OWN MEDS, ALL PO SCH (09:30)
--- NOTE | 2021-09-13 12:42 | CARDIAC CATHETERIZATION ---
DATE OF SERVICE: 09/13/2021 RIGHT HEART CATHETERIZATION REPORT HISTORY: The patient is a 76-year-old lady with pulmonary hypertension. Her placement assistant, Dr. Mendes, has recommended right heart catheterization. This was carried out today after having obtained an informed consent. DESCRIPTION OF PROCEDURE: She was brought to the cardiac catheterization laboratory in a fasting state. Right groin was prepared and draped in the usual sterile fashion. Lidocaine 1% was used for local anesthesia. Modified Seldinger technique was used to advance a 7-Burmese sheath into the right femoral vein. We used a 7-Burmese [place]-Kim catheter to carry out right heart catheterization. The catheter was advanced into the left pulmonary artery. Pulmonary artery systolic pressure was measured. Wedge pressure was measured. Cardiac output was determined using thermodilution. Oxygen saturations were obtained. The catheter was then pulled back to the right ventricle. Measurements were recorded. Oxygen saturation was obtained. The catheter was then pulled into the right atrium. Pressures were recorded and oxygen saturation was obtained. For arterial saturation, we used pulse oximetry. The catheter was then removed. Manual pressure was used to achieve hemostasis following removal of the sheath. She tolerated the procedure well. HEMODYNAMICS: Pulmonary artery pressure was 68/29 with a mean of 42 mmHg. Mean pulmonary capillary wedge pressure was 18 mmHg. Right ventricular pressure was 68/18. Mean right atrial pressure was 10 mmHg. Cardiac output by thermodilution was 3.7. Pulmonary vascular resistance is calculated to be 7.9 Wood units. CONCLUSIONS: Pulmonary hypertension, moderate to moderately severe. Job ID: [id number] DocumentID: [id number] Dictated Date: 09/13/2021 09:05:12 Pharmacoepidemiologist Date: 09/13/2021 12:41:32 Dictated By: ANUPAM BAILEY MD, MA, FACP, FACC,
== END 2021-09-13 11:25 | disposition home or self-care (01) ==
LOC: CATH 08:00 → SDC 09:28 → CATH 11:25
PROVIDERS: ATTEND Internal Medicine Cardiovascular Disease
DX: I27.21 Secondary pulmonary arterial hypertension (principal); I10 Essential (primary) hypertension; I47.1 Supraventricular tachycardia; I25.10 Atherosclerotic heart disease of native coronary artery without angina pectoris; K21.9 Gastro-esophageal reflux disease without esophagitis; M81.0 Age-related osteoporosis without current pathological fracture; L65.9 Nonscarring hair loss, unspecified; R60.0 Localized edema; B37.3 Candidiasis of vulva and vagina; J45.909 Unspecified asthma, uncomplicated; G62.9 Polyneuropathy, unspecified; G47.33 Obstructive sleep apnea (adult) (pediatric); E78.2 Mixed hyperlipidemia; I15.8 Other secondary hypertension; I65.23 Occlusion and stenosis of bilateral carotid arteries; I44.7 Left bundle-branch block, unspecified; Z98.890 Other specified postprocedural states; Z79.899 Other long term (current) drug therapy; Z79.82 Long term (current) use of aspirin
CPT/HCPCS: 80053; 80061; 85027; 85610; 85730; 87081; 93005; 93451; C1769; C1894; 36415

== ENCOUNTER → 2021-11-11 | Outpatient (CLI) | payer MEDICARE, BC ==
[~2021-11-11] MED LIST changes: +AMLO-251 PO; +BENA40TA59 PO; +BUDE10.2 IH; +CHOL500049 PO; +CYAN50003 PO; +ERGO1250 PO; +ESTR1PAT90 TD; +FURO40TA4 PO; -HEParin (CATH LAB) 2,000 ML IV ONE; +IBUP-2473 PO; +LATA7.5D OU; -LIDOCAINE 1% INJ 50 ML (XYLOCAINE) VIAL ONE; -MIDAZOLAM 5 MG/5 ML (VERSED) VIAL ONE; +MINO100T10 PO; +MONT10TA21 PO; -NS IV 1000 ML 1,000 ML IV SCH; -NS IV 1000 ML 1,000 ML ONE; +POTA10CA43 PO; -fentaNYL INJ 100 MCG/2 ML AMP ONE
--- NOTE | 2021-11-11 14:01 | Diagnostic Imaging Report ---
Indication: Routine screening. Comparison is made with prior mammograms from 11/05/2020 and 06/28/2018. 2-D and 3-D bilateral screening mammography was performed with CAD. Scattered glandular densities are identified bilaterally. A nodular density in the left breast is stable. There are scattered benign calcifications throughout both breasts. No new mass or malignant-appearing microcalcifications are seen. Axillae are unremarkable. IMPRESSION: BI-RADS Category 2 No mammographic features suspicious for malignancy are identified. ACR BI-RADS Category 2: Benign findings. Result letter will be mailed to the patient. Note: At least 10% of breast cancer is not imaged by mammography. Dictated by: Dictated on workstation # [id number]
== END ==
LOC: RAD 10:45
DX: Z12.31 Encounter for screening mammogram for malignant neoplasm of breast (principal)
CPT/HCPCS: 77063; 77067

== ENCOUNTER → 2022-02-13 | Outpatient (CLI) | payer MEDICARE, BC | LOC: CARD 10:00 | PROVIDERS: ATTEND Internal Medicine Critical Care Medicine | DX: I08.0 Rheumatic disorders of both mitral and aortic valves (principal); I27.23 Pulmonary hypertension due to lung diseases and hypoxia | CPT/HCPCS: 93306 ==

== ENCOUNTER → 2022-07-26 | Outpatient (CLI) | payer MEDICARE, BC ==
[~2022-07-26] MED LIST changes: +CLOP-31 PO; -CLOP75TA69 PO
--- NOTE | 2022-07-26 11:56 | Diagnostic Imaging Report ---
INDICATION: Hypoxia. TIME OF EXAM: 10:10 a.m. COMPARISON: Correlation is made with prior chest from 08/24/2021. FINDINGS: The heart size is normal. The pulmonary vascularity is unremarkable. The lungs are clear. No infiltrate, effusion or pneumothorax is detected. IMPRESSION: No acute cardiopulmonary process is detected. Dictated by: Dictated on workstation # [id number]
== END ==
LOC: RAD 09:40
PROVIDERS: ATTEND Nurse Practitioner Family
DX: E87.1 Hypo-osmolality and hyponatremia (principal); R09.02 Hypoxemia
CPT/HCPCS: 71046

== ENCOUNTER 2022-08-08 20:05 | Inpatient (IN) | payer MEDICARE, BC ==
[~2022-08-08] VITALS: Ht 165.1 cm; Wt 80.6 kg
[~2022-08-08 20:05] MED LIST changes: -POTA10CA43 PO; +POTA10CA44 PO
[2022-08-08] MEDS ORDERED: ASPIRIN 81 MG CHEW (CHILDREN'S ASA) PO ONE (20:30)
[2022-08-08 20:38] LABS: BASOPHILS # (AUTO) 0.1 10^3/uL (0.0-0.1); BASOPHILS % (AUTO) 1 % (0-10); EOSINOPHILS # (AUTO) 0.2 10^3/uL (0.0-0.3); EOSINOPHILS % (AUTO) 2 % (0-10); HEMATOCRIT 43 % (35-52); HEMOGLOBIN 14.1 g/dL (11.5-16.0); LYMPHOCYTES # (AUTO) 1.6 10^3/uL (1.0-4.0); LYMPHOCYTES % (AUTO) 20 % (12-44); MEAN CORPUSCULAR HEMOGLOBIN 30 pg (25-34); MEAN CORPUSCULAR HGB CONC 33 g/dL (32-36); MEAN CORPUSCULAR VOLUME 92 fL (80-99); MEAN PLATELET VOLUME 10.3 fL (9.0-12.2); MONOCYTES # (AUTO) 0.8 10^3/uL (0.0-1.0); MONOCYTES % (AUTO) 10 % (0-12); NEUTROPHILS # (AUTO) 5.2 10^3/uL (1.8-7.8); NEUTROPHILS % (AUTO) 67 % (42-75); PLATELET COUNT 252 10^3/uL (130-400); WHITE BLOOD COUNT 7.7 10^3/uL (4.3-11.0)
--- NOTE | 2022-08-08 20:46 | ED Cardiac General ---
History of Present Illness General Chief Complaint: Chest Pain Stated Complaint: SOB, IRREGULAR HEART RATE Source: patient Exam Limitations: no limitations (TABATHA CORDOVA APRN) History of Present Illness Date Seen by Provider: Aug 08, 2022 Time Seen by Provider: 20:15 Initial Comments Patient is a 77-year-old female who presents to the emergency department for evaluation of rapid heart rate, near syncope, and chest tightness. Patient s tates the symptoms began last night but acutely worsened approximately 3 hours prior to arrival. Patient states the chest tightness is mostly left-sided. She denies any radiation of the pain. She denies any history of similar symptoms. Patient has a complex history including pulmonary hypertension for which she takes sildenafil. Patient also has an extensive list of allergies. Patient denies any recent increase in caffeine usage, any stimulant or drug use, or any recent medication changes. States she has also had some intermittent shortness of air. (TABATHA CORDOVA MEDICARE BILLER) Allergies and Home Medications Allergies Coded Allergies: NILDA Inhibitors (Verified Allergy, Unknown, 08/08/22) Beta-Blockers (Beta-Adrenergic Bloc (Verified Allergy, Unknown, 08/08/22) citalopram hydrobromide (Verified Allergy, Unknown, rebound headache and dizzy, 11/05/20) diltiazem (Verified Allergy, Unknown, RASH,ITCHING, 11/28/05) omeprazole magnesium (Verified Allergy, Unknown, severe stomach ache, 11/05/20) propranolol (Verified Allergy, Unknown, DEPRESSION,RASH,HEADACHE, 11/28/05) sucralfate (Verified Allergy, Unknown, RASH,ITCHING, 11/28/05) terfenadine (Verified Allergy, Unknown, SEVERE HIVES/RASH, 11/28/05) amlodipine (Verified Adverse Reaction, Intermediate, 08/10/22) acetaminophen (Verified Adverse Reaction, Unknown, NAUSEA/HEADACHE, 11/28/05) ciprofloxacin (Unverified Adverse Reaction, Unknown, SEVERE STOMACH ACHE AND RELUX, 11/05/20) clindamycin (Unverified Adverse Reaction, Unknown, BURNING RASH ON FACE, 11/05/20) codeine (Verified Adverse Reaction, Unknown, NAUSEA/HEADACHE, 11/28/05) dicloxacillin (Unverified Adverse Reaction, Unknown, HEADACHE/NAUSEA, 11/05/20) digoxin (Verified Adverse Reaction, Unknown, JITTERY, PALPITATIONS, 11/28/05) hydrocodone (Verified Adverse Reaction, Unknown, DIZZINESS, NAUSEA, 11/28/05) medroxyprogesterone (Verified Adverse Reaction, Unknown, WT. GAIN, 29/12) omeprazole (Verified Adverse Reaction, Unknown, SEVERE STOMACHACHE/GALARZA, 11/28/05) oxybutynin (Unverified Adverse Reaction, Unknown, EXTREME DRY MOUTH, 11/05/20) propoxyphene (Verified Adverse Reaction, Unknown, GALARZA, N, DIZZY, 11/28/05) verapamil (Verified Adverse Reaction, Unknown, JITERY,PALPITATIONS, 11/28/05) Patient Home Medication List Home Medication List Reviewed: Yes (TABATHA CORDOVA APRN) Acetaminophen (Tylenol Extra Strength) 500 Mg Tablet, 1,000 MG PO Q8H PRN for PAIN-MILD (1-4), (Reported) Entered as Reported by: BARTOLO DURÁN on 08/10/221050 Last Action: Reviewed Amiodarone HCl (Amiodarone HCl) 200 Mg Tablet, 400 MG PO BID Prescribed by: SHENA SMITH on 08/10/22 1023 Apixaban (Eliquis) 5 Mg Tablet, 5 MG PO BID Prescribed by: SHENA SMITH on 08/10/22 1023 Aspirin (Aspirin EC) 81 Mg Tablet.dr, 81 MG PO HS, (Reported) Entered as Reported by: YAZ PERDOMO on 08/31/15821 Last Action: Reviewed Atorvastatin Calcium (Atorvastatin Calcium) 40 Mg Tablet, 40 MG PO HS, (Reported) Entered as Reported by: BARTOLO DURÁN on 08/10/22 105 Last Action: Reviewed Budesonide/Formoterol Fumarate (Budesonide-Formoterol 160-4.5) 160 Mcg-4.5 Mcg/Actuation Hfa.aer.ad, 2 PUFF INH BID, (Reported) Entered as Reported by: BARTOLO DURÁN on 08/10/221050 Last Action: Reviewed Clonidine HCl (Clonidine HCl) 0.1 Mg Tablet, 0.1 MG PO 0800,1400,2000, (Reported) Entered as Reported by: YAZ PERDOMO on 08/31/15821 Last Action: Reviewed Ergocalciferol (Vitamin D2) (Vitamin D2) 1,250 Mcg Capsule, 1,250 MCG PO SUNDAY, (Reported) Entered as Reported by: TARA KAMARA on 09/13/21 0817 Last Action: Reviewed Furosemide (Furosemide) 40 Mg Tablet, 40 MG PO Q48H, (Reported) Entered as Reported by: BARTOLO DURÁN on 08/10/221050 Last Action: Reviewed Latanoprost (Xalatan) 0.005 % Drops, 1 DROP OU HS, (Reported) Entered as Reported by: BARTOLO DURÁN on 08/10/221050 Last Action: Reviewed Montelukast Sodium (Montelukast Sodium) 10 Mg Tablet, 10 MG PO HS, (Reported) Entered as Reported by: BARTOLO DURÁN on 08/10/221050 Last Action: Reviewed Multivit-Min/FA/Lycopene/Lut (Centrum Silver Tablet) 0.4 Mg-300 Mcg-250 Mcg Tablet, 1 EACH PO DAILY, (Reported) Entered as Reported by: BARTOLO DURÁN on 08/10/221050 Last Action: Reviewed Pantoprazole Sodium (Pantoprazole Sodium) 40 Mg Tablet.dr, 40 MG PO DAILY PRN for HEARTBURN, (Reported) Entered as Reported by: BARTOLO DURÁN on 08/10/221050 Last Action: Reviewed Potassium Chloride (Potassium Chloride) 10 Meq Tab.er.prt, 10 MEQ PO Q48H, (Reported) Entered as Reported by: BARTOLO DURÁN on 08/10/221050 Last Action: Reviewed Propylene Glycol/Peg 400 (Systane Ultra 0.4-0.3% Eye Drp) 0.3 %-0.4 % Drops, 1-2 DROPS OU UD PRN for DRY EYES, (Reported) Entered as Reported by: BARTOLO DURÁN on 08/10/221050 Last Action: Reviewed Sildenafil Citrate (Sildenafil) 20 Mg Tablet, 20 MG PO 0800,1400,2000, (Reported) Entered as Reported by: BARTOLO DURÁN on 08/10/221050 Last Action: Reviewed Trazodone HCl (Trazodone HCl) 50 Mg Tablet, 50 MG PO HS, (Reported) Entered as Reported by: BARTOLO DURÁN on 08/10/221050 Last Action: Reviewed Ubidecarenone (Coq-10) 30 Mg Capsule, 30 MG PO DAILY, (Reported) Entered as Reported by: BARTOLO DURÁN on 08/10/22 1051 Last Action: Reviewed Discontinued Medications Amlodipine Besylate (Amlodipine Besylate) 10 Mg Tablet, 10 MG PO DAILY, (Re ported) Discontinued Reason: No Longer Taking Entered as Reported by: TARA KAMARA on 09/13/21816 Last Action: Discontinued Azelaic Acid (Finacea) 50 Gm Gel..gram., 1 APPLIC TP DAILY PRN for ROSACEA, (Reported) Discontinued Reason: No Longer Taking Entered as Reported by: YAZ PERDOMO on 08/31/15821 Last Action: Discontinued Benazepril HCl (Lotensin) 40 Mg Tablet, 40 MG PO DAILY PRN for BLOOD PRESSURE, (Reported) Entered as Reported by: TARA KAMARA on 09/13/21816 Last Action: Reviewed Budesonide/Formoterol Fumarate (Symbicort 160-4.5 Mcg Inhaler) 10.2 Gm Hfa.aer.ad, 2 PUFF IH BID, (Reported) Discontinued Reason: Duplicate Order Entered as Reported by: TARA KAMARA on 09/13/21816 Last Action: Discontinued Cyanocobalamin (Vitamin B-12) (Vitamin B-12) 5,000 Mcg Tab.rapdis, 5,000 MCG PO DAILY, (Reported) Discontinued Reason: No Longer Taking Entered as Reported by: TARA KAMARA on 09/13/21816 Last Action: Discontinued Estradiol (Estradiol Patch Weekly 0.05mg/hr) 1 Each Patch.td, 1 EACH TD SUNDAY, (Reported) Discontinued Reason: No Longer Taking Entered as Reported by: TARA KAMARA on 09/13/21820 Last Action: Discontinued Furosemide (Furosemide) 40 Mg Tablet, 40 MG PO every other day Discontinued Reason: Duplicate Order Prescribed by: ANUPAM CUI on 09/13/21922 Last Action: Discontinued Latanoprost/Pf (Latanoprost 0.005% Eye Drop) 7.5 Ml Drops, 1 DROP OU HS, (Reported) Discontinued Reason: Duplicate Order Entered as Reported by: TARA KAMAAR on 09/13/21816 Last Action: Discontinued Minocycline HCl (Minocycline HCl) 100 Mg Tablet, 100 MG PO BID PRN for ROSACEA, (Reported) Discontinued Reason: No Longer Taking Entered as Reported by: TARA KAMARA on 09/13/21816 Last Action: Discontinued Montelukast Sodium (Singulair) 10 Mg Tablet, 10 MG PO HS, (Reported) Discontinued Reason: No Longer Taking Entered as Reported by: TARA KAMARA on 09/13/21816 Last Action: Discontinued Potassium Chloride (Potassium Chloride) 10 Meq Capsule.er, 10 MEQ PO every other day Discontinued Reason: Duplicate Order Prescribed by: ANUPAM CUI on 09/13/21922 Last Action: Discontinued Review of Systems Review of Systems Constitutional: no symptoms reported EENTM: No Symptoms Reported Respiratory: See HPI Cardiovascular: See HPI, Chest Pain, Palpitations Gastrointestinal: No Symptoms Reported Genitourinary: No Symptoms Reported Musculoskeletal: no symptoms reported Skin: no symptoms reported Psychiatric/Neurological: No Symptoms Reported Endocrine: No Symptoms Reported Hematologic/Lymphatic: No Symptoms Reported (TABATHA CORDOVA APRN) Past Ozobjdm-Zjmqgo-Irgghz Hx Patient Social History Tobacco Use?: No Substance use?: No Alcohol Use?: Yes Alcohol Frequency: Rarely (TABATHA CORDOVA APRN) Immunizations Up To Date Influenza Vaccine Up-to-Date: Yes; Up-to-Date First/Initial COVID19 Vaccinat: AUG 2020 Second COVID19 Vaccination Lance: SEPTEMBER 2020 Third COVID19 Vaccination Date: AUG 2020 (TABATHA CORDOVA APRN) Past Medical History Cystectomy, Gallbladder, Hysterectomy Sleep Apnea Currently Using CPAP: Yes Coronary Artery Disease, Heart Attack, Hypertension Reproductive Disorders: No Gastroesophageal Reflux (TABATHA CORDOVA APRN) Physical Exam Vital Signs Vital Signs - First Documented (FLAVIO LANDRY MD) Vital Signs Capillary Refill : (TABATHA CORDOVA APRN) Height, Weight, BMI Height: 5'5.00" Weight: 182lbs. 0.0oz. 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 Norm as Tested Skin: Normal Color, Warm/Dry (TABATHA CORDOVA APRN) Progress/Results/Core Measures Results/Orders Lab Results Laboratory Tests Test 08/08/22 20:25 Range/Units White Blood Count 7.7 4.3-11.0 10^3/uL Red Blood Count 4.65 3.80-5.11 10^6/uL Hemoglobin 14.1 11.5-16.0 g/dL Hematocrit 43 35-52 % Mean Corpuscular Volume 92 80-99 fL Mean Corpuscular Hemoglobin 30 25-34 pg Mean Corpuscular Hemoglobin Concent 33 32-36 g/dL Red Cell Distribution Width 14.0 10.0-14.5 % Platelet Count 252 130-400 10^3/uL Mean Platelet Volume 10.3 9.0-12.2 fL Immature Granulocyte % (Auto) 0 % Neutrophils (%) (Auto) 67 42-75 % Lymphocytes (%) (Auto) 20 12-44 % Monocytes (%) (Auto) 10 0-12 % Eosinophils (%) (Auto) 2 0-10 % Basophils (%) (Auto) 1 0-10 % Neutrophils # (Auto) 5.2 1.8-7.8 10^3/uL Lymphocytes # (Auto) 1.6 1.0-4.0 10^3/uL Monocytes # (Auto) 0.8 0.0-1.0 10^3/uL Eosinophils # (Auto) 0.2 0.0-0.3 10^3/uL Basophils # (Auto) 0.1 0.0-0.1 10^3/uL Immature Granulocyte # (Auto) 0.0 0.0-0.1 10^3/uL Prothrombin Time 12.7 12.2-14.7 SEC INR Comment 0.9 0.8-1.4 Activated Partial Thromboplast Time 38 H 24-35 SEC Sodium Level 139 135-145 MMOL/L Potassium Level 4.2 3.6-5.0 MMOL/L Chloride Level 105 98-107 MMOL/L Carbon Dioxide Level 19 L 21-32 MMOL/L Anion Gap 15 H 5-14 MMOL/L Blood Urea Nitrogen 29 H 7-18 MG/DL Creatinine 1.46 H 0.60-1.30 MG/DL Estimat Glomerular Filtration Rate 37 BUN/Creatinine Ratio 20 Glucose Level 143 H 70-105 MG/DL Calcium Level 8.9 8.5-10.1 MG/DL Corrected Calcium 8.8 8.5-10.1 MG/DL Magnesium Level 1.9 1.6-2.4 MG/DL Total Bilirubin 0.4 0.1-1.0 MG/DL Aspartate Amino Transf (AST/SGOT) 33 5-34 U/L Alanine Aminotransferase (ALT/SGPT) 31 0-55 U/L Alkaline Phosphatase 77 40-136 U/L Troponin I 0.075 H <0.028 NG/ML Total Protein 7.3 6.4-8.2 GM/DL Albumin 4.1 3.2-4.5 GM/DL (FLAVIO LANDRY MD) My Orders Orders - FLAVIO LANDRY MD Ekg Tracing (08/08/22 20:10) Ekg Tracing (08/09/22 01:14) (FLAVIO LANDRY MD) Medications Given in ED Current Medications Medications Dose Ordered Sig/Bee Route Start Time Stop Time Status Last Admin Dose Admin Amiodarone HCl 150 mg/Sodium Chloride 103 ml @ 600 mls/hr ONCE ONCE IV 08/08/22 22:30 08/08/22 22:40 DC 08/08/22 22:56 600 MLS/HR Aspirin 324 mg ONCE ONCE PO 08/08/22 20:30 08/08/22 20:31 DC 08/08/22 20:25 324 MG Enoxaparin Sodium 40 mg ONCE ONCE SC 08/08/22 23:15 08/08/22 23:16 DC 08/08/22 23:11 40 MG (FLAVIO LANDRY MD) Vital Signs/I&O 08/08/22 08/08/22 08/08/22 20:15 20:15 22:56 Temp 36.1 Pulse 137 137 Resp 20 B/P (MAP) 160/104 (122) 124/85 Pulse Ox 94 O2 Delivery Room Air Room Air (FLAVIO LANDRY MD) Progress Progress Note : Progress Note Patient is nontoxic and well-hydrated on exam. Vital signs notable for tachycardia. No adventitious lung sounds or increased work of breathing noted. No significant dependent edema appreciated. Patient endorses some left-sided anterior chest tightness. Denies any radiation of the tightness. Review of EMR notes echocardiogram obtained on February 13, 2022 which was notable for ejection fraction of 65 to 70%. Heart cath in September 2021 notable for moderate to moderate severe pulmonary hypertension. Orders placed for CBC, CMP, coagulation studies, chest x-ray, IV placement, EKG. CBC largely unremarkable. CMP notable for mildly elevated BUN and creatinine. Troponin is elevated. Coagulation studies unremarkable. Chest x-ray acutely negative. EKG notable for a flutter with 2-1 conduction and left bundle branch block. I spoke with Dr. Cui with cardiology who states due to the patient's numerous allergies to medications typically used for treatment of atrial tachycardias patient likely would need transport to a facility with EP coverage in the event ablation is needed. I asked if amiodarone was a reasonable medication to start but he states patient needs transfer and he does not recommend any other acute interventions at this time pending transfer. I spoke with the transfer center at [facility] who placed me in contact with their access services librarian, Dr. Sanchez, who kindly agreed to accept the patient in transfer. He recommended initiation of an amiodarone bolus followed by a drip. This was ordered. Patient states her chest tightness is very mild at this time. Due to patient's use of sildenafil for her pulmonary hypertension no short acting nitrates were utilized for the pain. Patient was given an oral dose of aspirin. Patient was updated on plan of care for transfer and she verbalized understanding. (TABATHA CORDOVA APRN) Progress Note : Progress Note 0600--ASSUMED CARE FROM DR. LANDRY, WAITING FOR BED ASSIGNMENT AT [facility]. PT HAS CONVERTED TO NSR, AND REPEAT EKG HAS BEEN DONE, VITALS STABLE. AM LAB BEING ORDERED. PT HAS NO COMPLAINTS AT THIS TIME. 0855--[facility] WAS CONTACTED, FOR UPDATE ON BED ASSIGNMENT. THEY WILL CALL US BACK WHEN BED IS AVAILABLE. 1105--CALLED DR. CIU, REVENUE COLLECTOR, AND UPDATED HIM ON PT'S CONDITION, HE IS NOW AGREEABLE TO KEEPING PT HERE, AND ADMIT TO HOSPITALIST. 1113--SPOKE WITH DR. SOLOMON, HOSPITALIST. SHE WILL DISCUSS WITH DR. CUI BEFORE ACCEPTING PT, AND CALL ME BACK 1141--SPOKE WITH DR. SOLOMON AGAIN. SHE HAS DISCUSSED WITH DR. CUI, AND SHE DECLINES ADMITTING PT AT THIS TIME, SHE WAS ADVISED BY DR. CUI, THAT IF PT GOES BACK INTO A FIB/FLUTTER, THEN PT WOULD HAVE TO BE TRANSFERRED. SHE ADVISES TO PROCEED PLANNED WITH TRANSFER TO [facility]. 1142[facility] HAVE [facility]EDS, BUT PT HAS NOT BEEN ASSIGNED TO O NE YET. THEY REPORT THAT SHE IS "FIRST IN LINE" TO GET A BED. 1354--CALLED [facility] AGAIN. THEY STILL HAVE NOT ASSIGNED PT A BED, AND ARE MOVING PATIENTS AROUND, AND SHE IS "IN LINE" TO GET A BED, AND THEY ARE "STILL WORKING ON IT" RN HAS ALSO CONTACTED [facility] THROUGHOUT THE DAY, AND HAS BEEN INFORMED OF THE SAME--THAT SHE IS "IN LINE" TO GET A BED, BUT THEY HAVE NOT ASSIGNED PT A BED YET, AND ARE "STILL WORKING ON IT" . DR. CUI'S TYPE SOLDERING MACHINE TENDER HAS BEEN IN TO DO H&P ON PT, ORDERS HAVE BEEN PUT IN BY THEIR SERVICE. 1610--DR. CUI HAS BEEN IN TO SEE PT. HE WILL DISCUSS WITH DR. SOLOMON AND CALL ME BACK 1630--DR. CUI CALLED BACK, HE ADVISES TO ADMIT PT TO HIS SERVICE. ORDERS FOR ELIQUIS AND AMIODARONE NOTED. CARDIAC CATH STAFF MEMBER HAS BEEN IN TO DO ECHOCARDIOGRAM (AGNES EVANS DO) EKG : EKG Time: 20:25 Rate: 135 Rhythm: A Fib/Flutter ECG Comparisson: Changed Comment Atrial flutter with 2-1 conduction noted; left bundle branch block also noted; significant changes noted compared to EKG dated 09/13/2021 (TABATHA CORDOVA APRN) EKG : EKG Time: 01:18 Rate: 92 Rhythm: A Fib/Flutter ECG Comparisson: Changed Comment decreased rate (FLAVIO LANDRY MD) EKG : EKG Time: 05:51 Rate: 64 Rhythm: Normal Sinus (IVCD) ECG Comparisson: Changed (NO LONGER IN A FLUTTER/AFIB) (AGNES EVANS DO) Departure Impression Primary Impression: Atrial flutter Qualified Codes: I48.92 - Unspecified atrial flutter Additional Impressions: Elevated troponin ATRIAL FLUTTER WITH RAPID VENTRICULAR RESPONSE Chest pain Disposition: ADMITTED INPATIENT Condition: Stable Admissions Decision to Admit Reason: Admit from ER (General) Decision to Admit/Date: Aug 09, 2022 Time/Decision to Admit Time: 16:30 (AGNES EVANS DO) Transfer Transfer Reason: Exceeds level of care Time Spoke to Accepting Phy: 22:20 Transfer Progress Notes Kindly excepted the patient in transfer; requested dosage of amiodarone bolus and subsequent drip Transfer Facility: [facility] Method of Transfer: EMS (TABATHA CORDOVA APRN) Departure-Patient Inst. Referrals: SARAI VIEYRA MD (PCP/Family) Primary Care Physician Scripts Amiodarone HCl (Amiodarone HCl) 200 Mg Tablet 400 MG PO BID, #120 TAB 3 Refills Prov: SHENA SMITH 08/10/22 Apixaban (Eliquis) 5 Mg Tablet 5 MG PO BID, #60 TAB 3 Refills Prov: SHENA SMITH 08/10/22 TABATHA CORDOVA APRN Aug 08, 2022 20:46 FLAVIO LANDRY MD Aug 09, 2022 03:58 AGNES EVANS DO Aug 09, 2022 06:08
[2022-08-08 20:57] LABS: INR 0.9 (0.8-1.4); PROTHROMBIN TIME PATIENT 12.7 SEC (12.2-14.7)
[2022-08-08 21:04] LABS: ALBUMIN 4.1 GM/DL (3.2-4.5); BILIRUBIN,TOTAL 0.4 MG/DL (0.1-1.0); CALCIUM 8.9 MG/DL (8.5-10.1); CREATININE SERUM 1.46 MG/DL (0.60-1.30); MAGNESIUM 1.9 MG/DL (1.6-2.4); POTASSIUM 4.2 MMOL/L (3.6-5.0); TOTAL PROTEIN 7.3 GM/DL (6.4-8.2)
--- NOTE | 2022-08-08 21:40 | Diagnostic Imaging Report ---
INDICATION: Chest pain EXAMINATION: Chest 08/08/2022 COMPARISON: 02/22/2021 FINDINGS: There is cardiomegaly. The lungs and pleural spaces clear. No pneumothorax or effusions. IMPRESSION: No acute cardiopulmonary process. Dictated by: Dictated on workstation # [id number]
[2022-08-08] MEDS ORDERED: AMIODARONE FOR BOLUS 150 MG in NS (IVPB) 100 ML IV ONE (22:30)
[2022-08-08] MEDS: AMIODARONE INJECTION 450 MG in NORMAL SALINE 250 ML IV SCH (23:06)
[2022-08-08] MEDS ORDERED: ENOXAPARIN 40 MG/0.4 ML (LOVENOX) SYR SC ONE (23:15)
[2022-08-09 06:28] LABS: BASOPHILS # (AUTO) 0.1 10^3/uL (0.0-0.1); BASOPHILS % (AUTO) 1 % (0-10); EOSINOPHILS # (AUTO) 0.2 10^3/uL (0.0-0.3); EOSINOPHILS % (AUTO) 3 % (0-10); HEMATOCRIT 38 % (35-52); HEMOGLOBIN 12.4 g/dL (11.5-16.0); LYMPHOCYTES # (AUTO) 1.3 10^3/uL (1.0-4.0); LYMPHOCYTES % (AUTO) 20 % (12-44); MEAN CORPUSCULAR HEMOGLOBIN 30 pg (25-34); MEAN CORPUSCULAR HGB CONC 32 g/dL (32-36); MEAN CORPUSCULAR VOLUME 94 fL (80-99); MEAN PLATELET VOLUME 10.2 fL (9.0-12.2); MONOCYTES # (AUTO) 0.6 10^3/uL (0.0-1.0); MONOCYTES % (AUTO) 10 % (0-12); NEUTROPHILS # (AUTO) 4.2 10^3/uL (1.8-7.8); NEUTROPHILS % (AUTO) 66 % (42-75); PLATELET COUNT 207 10^3/uL (130-400); WHITE BLOOD COUNT 6.4 10^3/uL (4.3-11.0)
[2022-08-09 06:46] LABS: CHOLESTEROL 145 MG/DL (< 200); HDL CHOLESTEROL 51 MG/DL (40-60); TRIGLYCERIDES 118 MG/DL (<150); VLDL CHOLESTEROL 24 MG/DL (5-40)
[2022-08-09 06:53] LABS: ALBUMIN 3.6 GM/DL (3.2-4.5); POTASSIUM 4.2 MMOL/L (3.6-5.0)
[2022-08-09 06:54] LABS: CALCIUM 8.5 MG/DL (8.5-10.1)
[2022-08-09 06:55] LABS: TOTAL PROTEIN 6.1 GM/DL (6.4-8.2)
[2022-08-09 06:57] LABS: BILIRUBIN,TOTAL 0.4 MG/DL (0.1-1.0)
[2022-08-09 06:59] LABS: CREATININE SERUM 1.15 MG/DL (0.60-1.30)
[2022-08-09] MEDS: AMIODARONE INJECTION 450 MG in NORMAL SALINE 250 ML IV SCH (08:36)
[2022-08-09] MEDS ORDERED: ENOXAPARIN 40 MG/0.4 ML (LOVENOX) SYR SC ONE ×2 (11:00→11:15)
--- NOTE | 2022-08-09 11:32 | Consultation-Cardiology ---
HPI-Cardiology Cardiology Consultation: Date of Consultation 08/09/22 Time Seen by a Provider: 11:45 Date of Admission 08-09-22 Attending Physician Rob Muhammad MD Admitting Physician Admitting Physician: Attending Physician: Consulting Physician Diana Cui MD HPI: Chief Complaint: New onset a-fib with RVR Ms. Brown is a 77 yr old female who I have seen in the ED. She reports she started to feel SOB, weak, lightheaded on Sunday. She reports her symptoms continued yesterday and progressively became worse at the day went on. She states she became so weak and lightheaded at times she felt as though she would pass out. She states she checked her HR at home and noted it to be 130's to 70's. She denies any c/o CP, palpitations, no near syncope or ghislaine syncope. No LE swelling. She was found to be in a-fib in the ED. She has converted to SR on Amiodarone gtt. She reports no SOB at rest. Review of Systems-Cardiology Review of Systems Constitutional: No chills, No fever; lightheadedness, malaise Eyes: No vision change Ears/Nose/Throat: No epistaxis, No recent hearing loss Respiratory: As described under HPI Cardiovascular: As described under HPI Gastrointestinal: No constipation, No diarrhea, No nausea, No vomiting Genitourinary: No dysuria, No hematuria Musculoskeletal: no symptoms reported Skin: No rash on exposed areas, No ulcerations on exposed areas Psychiatric/Neurological: No anxiety, No depression, No seizure, No focal weakness, No syncope Hematologic: No bleeding abnormalities [id number]-Hruqyq-Tllhve Hx Patient Social History Alcohol Use?: Yes Immunizations Up To Date Date of Pneumonia Vaccine: May 16, 2014 Date of Influenza Vaccine: Apr 30, 2015 Past Medical History PMH As described under Assessment. Family Medical History Family Medical History: No reported family h/o CAD or SCD. Allergies and Home Medications Allergies Coded Allergies: NILDA Inhibitors (Verified Allergy, Unknown, 08/08/22) Beta-Blockers (Beta-Adrenergic Bloc (Verified Allergy, Unknown, 08/08/22) Penicillins (Verified Allergy, Unknown, GALARZA,N,DIZZY,RASH, 11/28/05) citalopram hydrobromide (Verified Allergy, Unknown, rebound headache and dizzy, 11/05/20) diltiazem (Verified Allergy, Unknown, RASH,ITCHING, 11/28/05) methylprednisolone (Verified Allergy, Unknown, GALARZA, RASH, 11/28/05) omeprazole magnesium (Verified Allergy, Unknown, severe stomach ache, 11/05/20) propranolol (Verified Allergy, Unknown, DEPRESSION,RASH,HEADACHE, 11/28/05) sucralfate (Verified Allergy, Unknown, RASH,ITCHING, 11/28/05) terfenadine (Verified Allergy, Unknown, SEVERE HIVES/RASH, 11/28/05) acetaminophen (Verified Adverse Reaction, Unknown, NAUSEA/HEADACHE, 11/28/05) cephalexin (Unverified Adverse Reaction, Unknown, ITCHING, 11/05/20) ciprofloxacin (Unverified Adverse Reaction, Unknown, SEVERE STOMACH ACHE AND RELUX, 11/05/20) clindamycin (Unverified Adverse Reaction, Unknown, BURNING RASH ON FACE, 11/05/20) codeine (Verified Adverse Reaction, Unknown, NAUSEA/HEADACHE, 11/28/05) dicloxacillin (Unverified Adverse Reaction, Unknown, HEADACHE/NAUSEA, 11/05/20) digoxin (Verified Adverse Reaction, Unknown, JITTERY, PALPITATIONS, 11/28/05) epinephrine (Verified Adverse Reaction, Unknown, LIGHTHEADEDNESS, 11/28/05) erythromycin base (Verified Adverse Reaction, Unknown, NAUSEA, 11/28/05) hydrocodone (Verified Adverse Reaction, Unknown, DIZZINESS, NAUSEA, 11/28/05) medroxyprogesterone (Verified Adverse Reaction, Unknown, WT. GAIN, 11/28/05) metoclopramide (Verified Adverse Reaction, Unknown, BLURRED VISION, 11/28/05) omeprazole (Verified Adverse Reaction, Unknown, SEVERE STOMACHACHE/GALARZA, 11/28/05) oxybutynin (Unverified Adverse Reaction, Unknown, EXTREME DRY MOUTH, 11/05/20) propoxyphene (Verified Adverse Reaction, Unknown, GALARZA, N, DIZZY, 11/28/05) verapamil (Verified Adverse Reaction, Unknown, JITERY,PALPITATIONS, 11/28/05) Patient Home Medication List Amlodipine Besylate (Amlodipine Besylate) 10 Mg Tablet, 10 MG PO DAILY, (Reported) Entered as Reported by: TARA KAMARA on 09/13/21 0817 Aspirin (Aspirin EC) 81 Mg Tablet.dr, 81 MG PO HS, (Reported) Entered as Reported by: YAZ PERDOMO on 08/31/15821 Azelaic Acid (Finacea) 50 Gm Gel..gram., 1 APPLIC TP DAILY PRN for ROSACEA, (Reported) Entered as Reported by: YAZ PERDOMO on 08/31/15821 Benazepril HCl (Lotensin) 40 Mg Tablet, 40 MG PO DAILY PRN for BLOOD PRESSURE, (Reported) Entered as Reported by: TARA KAMARA on 09/13/21816 Budesonide/Formoterol Fumarate (Symbicort 160-4.5 Mcg Inhaler) 10.2 Gm Hfa.aer.ad, 2 PUFF IH BID, (Reported) Entered as Reported by: TARA KAMARA on 09/13/21816 Clonidine HCl (Clonidine HCl) 0.1 Mg Tablet, 0.1 MG PO DAILY, (Reported) Entered as Reported by: YAZ PERDOMO on 08/31/15821 Cyanocobalamin (Vitamin B-12) (Vitamin B-12) 5,000 Mcg Tab.rapdis, 5,000 MCG PO DAILY, (Reported) Entered as Reported by: TARA KAMARA on 09/13/21816 Ergocalciferol (Vitamin D2) (Vitamin D2) 1,250 Mcg Capsule, 1,250 MCG PO S , (Reported) Entered as Reported by: TARA KAMARA on 09/13/21816 Estradiol (Estradiol Patch Weekly 0.05mg/hr) 1 Each Patch.td, 1 EACH TD SUNDAY, (Reported) Entered as Reported by: TARA KAMARA on 09/13/21820 Furosemide (Furosemide) 40 Mg Tablet, 40 MG PO every other day Prescribed by: DIANA CUI on 09/13/21922 Latanoprost/Pf (Latanoprost 0.005% Eye Drop) 7.5 Ml Drops, 1 DROP OU HS, (Reported) Entered as Reported by: TARA KAMARA on 09/13/21816 Minocycline HCl (Minocycline HCl) 100 Mg Tablet, 100 MG PO BID PRN for ROSACEA, (Reported) Entered as Reported by: TARA KAMARA on 09/13/21816 Montelukast Sodium (Singulair) 10 Mg Tablet, 10 MG PO HS, (Reported) Entered as Reported by: TARA KAMARA on 09/13/21 0817 Potassium Chloride (Potassium Chloride) 10 Meq Capsule.er, 10 MEQ PO every other day Prescribed by: DIANA CUI on 09/13/21 0923 Physical Exam-Cardiology Physical Exam Vital Signs/I&O 08/09/22 08/09/22 08/09/22 08/09/22 21:00 22:00 23:00 23:59 Pulse 66 62 61 Resp 16 14 B/P (MAP) 127/71 (89) 105/73 (84) 137/76 (96) Pulse Ox 96 94 96 98 O2 Delivery Room Air Room Air Room Air Room Air 08/10/22 08/10/22 08/10/22 08/10/22 00:00 00:00 01:00 01:00 Temp 36.4 Pulse 65 68 63 Resp 21 19 B/P (MAP) 145/95 (112) 147/73 (97) Pulse Ox 95 97 O2 Delivery Room Air Room Air Room Air 08/10/22 08/10/22 08/10/22 08/10/22 02:00 03:00 04:00 04:00 Temp 35.9 Pulse 65 55 57 Resp 19 17 12 B/P (MAP) 133/72 (92) 109/63 (78) 127/73 (91) Pulse Ox 94 95 96 O2 Delivery Room Air Room Air Room Air Room Air 08/10/22 08/10/22 08/10/22 08/10/22 04:00 05:00 06:00 08:37 Pulse 60 56 78 Resp 23 B/P (MAP) 140/87 (104) 129/69 (89) 196/109 (138) Pulse Ox 95 96 94 98 O2 Delivery Room Air Room Air Room Air 08/10/22 00:00 Intake Total 599 ml Output Total 0 ml Balance 599 ml Capillary Refill : Less Than 3 Seconds Constitutional: AAO x 3, well-developed, well-nourished HEENT: PERRL, hearing is well preserved, oral hygience is good Neck: No carotid bruit; carotid pulses are 2 + bilaterally Respiratory: No accessory muscle use, No respiratory distress; chest expansion is symmetric, chest is bilaterally symmetric, lungs clear to auscultation Cardiovascular: regular rate-rhythm; No JVD; S1 and S2 Gastrointestinal: No tender; soft, round, audible bowel sounds Extremities: no lower extremity edema bilateral Neurologic/Psychiatric: grossly intact (moves all extremities) Skin: No rash on exposed areas, No ulcerations on exposed areas Data Review Labs Laboratory Tests 08/10/22 04:24: White Blood Count 5.5, Red Blood Count 4.07, Hemoglobin 12.3, Hematocrit 38, Mean Corpuscular Volume 94, Mean Corpuscular Hemoglobin 30, Mean Corpuscular Hemoglobin Concent 32, Red Cell Distribution Width 14.1, Platelet Count 206, Mean Platelet Volume 11.0, Immature Granulocyte % (Auto) 0, Neutrophils (%) (Auto) 67, Lymphocytes (%) (Auto) 19, Monocytes (%) (Auto) 9, Eosinophils (%) (Auto) 4, Basophils (%) (Auto) 2, Neutrophils # (Auto) 3.7, Lymphocytes # (Auto) 1.0, Monocytes # (Auto) 0.5, Eosinophils # (Auto) 0.2, Basophils # (Auto) 0.1, Immature Granulocyte # (Auto) 0.0, Sodium Level 139, Potassium Level 4.2, Chloride Level 109H, Carbon Dioxide Level 20L, Anion Gap 10, Blood Urea Nitrogen 15, Creatinine 0.81, Estimat Glomerular Filtration Rate 75, BUN/Creatinine Ratio 19, Glucose Level 87, Calcium Level 8.9, Phosphorus Level 3.0, Magnesium Level 2.2, Troponin I 0.038H Radiology NAME: IRVING BROWN [facility] REC#: [id number] PT STATUS: REG ER : 1945 PHYSICIAN: TABATHA CORDOVA APRN ADMIT DATE: 08/08/22/ER Signed Date of Exam:08/08/22 CHEST 1 VIEW, AP/PA ONLY INDICATION: Chest pain EXAMINATION: Chest 08/08/2022 COMPARISON: 02/22/2021 FINDINGS: There is cardiomegaly. The lungs and pleural spaces clear. No pneumothorax or effusions. IMPRESSION: No acute cardiopulmonary process. Dictated by: Dictated on workstation # [id number] Dict: 08/08/226 Trans: 08/08/222221 [facility] [id number] Interpreted by: KHALIDA MURRELL MD Electronically signed by: KHALIDA MURRELL MD 08/08/22 1607 ECG Impression ECG Initial ECG Impression: Atrial Fibrillation w/RVR A/P-Cardiology Assessment/Admission Diagnosis New onset a-fib/flutter - converted to SR with Amiodarone gtt - first dx on ECG at [facility] ED on 08-08-22 Coronary artery disease - with a history of drug-eluting stenting of the right coronary artery in January 2008. - Last cardiac catheterization in August 31, 2015 showed angiographically mild CAD. 50% stenoses in the first diagonal (small caliber)and the second OM branches. These do not appear to be of hemodynamic significance. FFR across the lesion in the second OM branch is 0.95. A WAGNER in the RCA is widely patent and free of significant disease. LVEF 65%. Normal LVEDP - MPI of 05/21/18: No ischemia or infarction, LVEF 73% - Echocardiogram of 05-27-21 showed LVEF 50-55%. Mod concenteric hypertophy. Mild to mod MR. Mild AoVR. PASP 40-45mmHg - Echocardiogram of 02-13-22 showed LVEF 65-70%. Mild MR. Mild AoR. PASP 35-40 mmHg SVT - Brief episodes of wide-complex tach on Holter of 08/16/15. This has been evaluated by Dr Jacobson, her EP, on 01/10/16 and has been diagnosed as SVT with associated aberrancy. - History of paroxysmal supraventricular tachycardia for which she has had ablation therapy 06-19-[address] Jacobson. 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 Mean pulmonary capillary wedge pressure was 18 mmHg. Right ventricular pressure was 68/18. Mean right atrial pressure was 10 mmHg. Cardiac output by thermodilution was 3.7. Pulmonary vascular resistance is calculated to be 7.9 Wood units. Diastolic CHF - chronic - Normal LVEF on echocardiogram, however, some degree of elevated pulmonary wedge pressure as indicated on RHC of 09-13-21 Asthma - managed by Dr. Mendes Bilateral leg discomfort - JIM WNL from 04-05-15. Improved following with cortisone injection Sleep apnea - being treated with C-PAP therapy and being managed by Dr. 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 - Relative intolerance to atenolol (per her corporate administrator, Dr Viera, who has informed her that that is the reason for hair loss) Bilateral lower extremity edema - likely secondary to venous insufficiency Carotid dz - Mild carotid art disease per u/s of 06-17-21 - Chronic vaginal yeast infection for which she in on chronic treatment per Dr Campos Abnormal ECG - ECG of 08/27/15 shows NSR and incomp LBBB, unchanged on 02/07/16 Bruising concerns - Easy bruising when on dual antiplatelet therapy Bilateral neuropathy - of the feet, resolved with B-12 replacement by her neurologist Surgery - H/o panniculectomy. Multiple medication intolerances Discussion and Recomendations Newly dx a-fib on EKG of 08-08-21 at the [facility] ED - converted to SR on Amiodarone gtt - change to oral once IV load is completed - start OAC with Eliquis Known h/o CAD, d/t new onset a-fib we advise MPI to eval perfusion to be done tomorrow We advise echo to eval structure and function Monitor lab closely Replace electrolytes as indicated Further recs will be based on her hospital course We would like to thank medical services for this consult Clinical Quality Measures AMI/AHF: ASA po Prior to arrival: Yes (81mg po daily) SHENA SMITH Aug 09, 2022 11:32
[2022-08-09] MEDS ORDERED: APIXABAN 5 MG (ELIQUIS) TABLET PO NR (12:15)
[2022-08-09] MEDS: APIXABAN 5 MG (ELIQUIS) TABLET PO SCH (12:22)
[2022-08-09] MEDS ORDERED: APIXABAN 5 MG (ELIQUIS) TABLET PO ONE (16:15)
--- NOTE | 2022-08-09 16:40 | Consultation-Cardiology ---
HPI-Cardiology Cardiology Consultation: Date of Consultation 08/09/22 Time Seen by a Provider: 16:00 Date of Admission Attending Physician Rob Muhammad MD Admitting Physician Admitting Physician: Attending Physician: Consulting Physician ANUPAM BAILEY MD, MA, FACP, FACC, FSCAI, CCDS HPI: Chief Complaint: New onset a-fib with RVR Ms. Brown is a 77 yr old female who I have seen in the ED. She reports she started to feel SOB, weak, lightheaded on Sunday. She reports her symptoms continued yesterday and progressively became worse at the day went on. She states she became so weak and lightheaded at times she felt as though she would pass out. She states she checked her HR at home and noted it to be 130's to 70's. She denies any c/o CP, palpitations, no near syncope or ghislaine syncope. No LE swelling. She was found to be in a-fib in the ED. She has converted to SR on Amiodarone gtt. She reports no SOB at rest. Review of Systems-Cardiology Review of Systems Constitutional: No chills, No fever; lightheadedness, malaise Eyes: No vision change Ears/Nose/Throat: No epistaxis, No recent hearing loss Respiratory: As described under HPI Cardiovascular: As described under HPI Gastrointestinal: No constipation, No diarrhea, No nausea, No vomiting Genitourinary: No dysuria, No hematuria Musculoskeletal: no symptoms reported Skin: No rash on exposed areas, No ulcerations on exposed areas Psychiatric/Neurological: No anxiety, No depression, No seizure, No focal weakness, No syncope Hematologic: No bleeding abnormalities OPP-Lvvqul-Njarza Hx Patient Social History Alcohol Use?: Yes Immunizations Up To Date Date of Pneumonia Vaccine: May 16, 2014 Date of Influenza Vaccine: Apr 30, 2015 Past Medical History PMH As described under Assessment. Family Medical History Family Medical History: No reported family h/o CAD or SCD. Allergies and Home Medications Allergies Coded Allergies: NILDA Inhibitors (Verified Allergy, Unknown, 08/08/22) Beta-Blockers (Beta-Adrenergic Bloc (Verified Allergy, Unknown, 08/08/22) Penicillins (Verified Allergy, Unknown, GALARZA,N,DIZZY,RASH, 11/28/05) citalopram hydrobromide (Verified Allergy, Unknown, rebound headache and dizzy, 11/05/20) diltiazem (Verified Allergy, Unknown, RASH,ITCHING, 11/28/05) methylprednisolone (Verified Allergy, Unknown, GALARZA, RASH, 11/28/05) omeprazole magnesium (Verified Allergy, Unknown, severe stomach ache, 11/05/20) propranolol (Verified Allergy, Unknown, DEPRESSION,RASH,HEADACHE, 11/28/05) sucralfate (Verified Allergy, Unknown, RASH,ITCHING, 11/28/05) terfenadine (Verified Allergy, Unknown, SEVERE HIVES/RASH, 11/28/05) acetaminophen (Verified Adverse Reaction, Unknown, NAUSEA/HEADACHE, 11/28/05) cephalexin (Unverified Adverse Reaction, Unknown, ITCHING, 11/05/20) ciprofloxacin (Unverified Adverse Reaction, Unknown, SEVERE STOMACH ACHE AND RELUX, 11/05/20) clindamycin (Unverified Adverse Reaction, Unknown, BURNING RASH ON FACE, 11/05/20) codeine (Verified Adverse Reaction, Unknown, NAUSEA/HEADACHE, 11/28/05) dicloxacillin (Unverified Adverse Reaction, Unknown, HEADACHE/NAUSEA, 11/05/20) digoxin (Verified Adverse Reaction, Unknown, JITTERY, PALPITATIONS, 11/28/05) epinephrine (Verified Adverse Reaction, Unknown, LIGHTHEADEDNESS, 11/28/05) erythromycin base (Verified Adverse Reaction, Unknown, NAUSEA, 11/28/05) hydrocodone (Verified Adverse Reaction, Unknown, DIZZINESS, NAUSEA, 11/28/05) medroxyprogesterone (Verified Adverse Reaction, Unknown, WT. GAIN, 11/28/05) metoclopramide (Verified Adverse Reaction, Unknown, BLURRED VISION, 11/28/05) omeprazole (Verified Adverse Reaction, Unknown, SEVERE STOMACHACHE/GALARZA, 11/28/05) oxybutynin (Unverified Adverse Reaction, Unknown, EXTREME DRY MOUTH, 11/05/20) propoxyphene (Verified Adverse Reaction, Unknown, GALARZA, N, DIZZY, 11/28/05) verapamil (Verified Adverse Reaction, Unknown, JITERY,PALPITATIONS, 11/28/05) Patient Home Medication List Home Medication List Reviewed: Yes Amlodipine Besylate (Amlodipine Besylate) 10 Mg Tablet, 10 MG PO DAILY, (Reporte d) Entered as Reported by: TARA KAMARA on 09/13/21816 Aspirin (Aspirin EC) 81 Mg Tablet.dr, 81 MG PO HS, (Reported) Entered as Reported by: YAZ PERDOMO on 08/31/15821 Azelaic Acid (Finacea) 50 Gm Gel..gram., 1 APPLIC TP DAILY PRN for ROSACEA, (Reported) Entered as Reported by: YAZ PERDOMO on 08/31/15821 Benazepril HCl (Lotensin) 40 Mg Tablet, 40 MG PO DAILY PRN for BLOOD PRESSURE, (Reported) Entered as Reported by: TARA KAMARA on 09/13/21816 Budesonide/Formoterol Fumarate (Symbicort 160-4.5 Mcg Inhaler) 10.2 Gm Hfa.aer.ad, 2 PUFF IH BID, (Reported) Entered as Reported by: TARA KAMARA on 09/13/21816 Clonidine HCl (Clonidine HCl) 0.1 Mg Tablet, 0.1 MG PO DAILY, (Reported) Entered as Reported by: YAZ PERDOMO on 08/31/15821 Cyanocobalamin (Vitamin B-12) (Vitamin B-12) 5,000 Mcg Tab.rapdis, 5,000 MCG PO DAILY, (Reported) Entered as Reported by: TARA KAMARA on 09/13/21816 Ergocalciferol (Vitamin D2) (Vitamin D2) 1,250 Mcg Capsule, 1,250 MCG PO SUNDAY, (Reported) Entered as Reported by: ATRA KAMARA on 09/13/21816 Estradiol (Estradiol Patch Weekly 0.05mg/hr) 1 Each Patch.td, 1 EACH TD SUNDAY, (Reported) Entered as Reported by: TARA KAMARA on 09/13/21820 Furosemide (Furosemide) 40 Mg Tablet, 40 MG PO every other day Prescribed by: ANUPAM BAILEY on 09/13/21922 Latanoprost/Pf (Latanoprost 0.005% Eye Drop) 7.5 Ml Drops, 1 DROP OU HS, (Reported) Entered as Reported by: TARA KAMARA on 09/13/21816 Minocycline HCl (Minocycline HCl) 100 Mg Tablet, 100 MG PO BID PRN for ROSACEA, (Reported) Entered as Reported by: TARA KAMARA on 3/1/22 0817 Montelukast Sodium (Singulair) 10 Mg Tablet, 10 MG PO HS, (Reported) Entered as Reported by: TARA KAMARA on 09/13/21816 Potassium Chloride (Potassium Chloride) 10 Meq Capsule.er, 10 MEQ PO every other day Prescribed by: ANUPAM BAILEY on 09/13/21 0923 Physical Exam-Cardiology Physical Exam Vital Signs/I&O Capillary Refill : Less Than 3 Seconds Constitutional: AAO x 3, well-developed, well-nourished HEENT: PERRL, hearing is well preserved, oral hygience is good Neck: No carotid bruit; carotid pulses are 2 + bilaterally Respiratory: No accessory muscle use, No respiratory distress; chest expansion is symmetric, chest is bilaterally symmetric, lungs clear to auscultation Cardiovascular: regular rate-rhythm; No JVD; S1 and S2 Gastrointestinal: No tender; soft, round, audible bowel sounds Extremities: no lower extremity edema bilateral Neurologic/Psychiatric: grossly intact (moves all extremities) Skin: No rash on exposed areas, No ulcerations on exposed areas Data Review Labs Laboratory Tests 08/08/22 20:25: White Blood Count 7.7, Red Blood Count 4.65, Hemoglobin 14.1, Hematocrit 43, Mean Corpuscular Volume 92, Mean Corpuscular Hemoglobin 30, Mean Corpuscular Hemoglobin Concent 33, Red Cell Distribution Width 14.0, Platelet Count 252, Mean Platelet Volume 10.3, Immature Granulocyte % (Auto) 0, Neutrophils (%) (Auto) 67, Lymphocytes (%) (Auto) 20, Monocytes (%) (Auto) 10, Eosinophils (%) (Auto) 2, Basophils (%) (Auto) 1, Neutrophils # (Auto) 5.2, Lymphocytes # (Auto) 1.6, Monocytes # (Auto) 0.8, Eosinophils # (Auto) 0.2, Basophils # (Auto) 0.1, Immature Granulocyte # (Auto) 0.0, Prothrombin Time 12.7, INR Comment 0.9, Activated Partial Thromboplast Time 38H, Sodium Level 139, Potassium Level 4.2, Chloride Level 105, Carbon Dioxide Level 19L, Anion Gap 15H, Blood Urea Nitrogen 29H, Creatinine 1.46H, Estimat Glomerular Filtration Rate 37, BUN/Creatinine Ratio 20, Glucose Level 143H, Calcium Level 8.9, Corrected Calcium 8.8, Magnesium Level 1.9, Total Bilirubin 0.4, Aspartate Amino Transf (AST/SGOT) 33, Alanine Aminotransferase (ALT/SGPT) 31, Alkaline Phosphatase 77, Troponin I 0.075H, Total Protein 7.3, Albumin 4.1 08/09/22 06:02: White Blood Count 6.4, Red Blood Count 4.10, Hemoglobin 12.4, Hematocrit 38, Mean Corpuscular Volume 94, Mean Corpuscular Hemoglobin 30, Mean Corpuscular H emoglobin Concent 32, Red Cell Distribution Width 14.3, Platelet Count 207, Mean Platelet Volume 10.2, Immature Granulocyte % (Auto) 0, Neutrophils (%) (Auto) 66, Lymphocytes (%) (Auto) 20, Monocytes (%) (Auto) 10, Eosinophils (%) (Auto) 3, Basophils (%) (Auto) 1, Neutrophils # (Auto) 4.2, Lymphocytes # (Auto) 1.3, Monocytes # (Auto) 0.6, Eosinophils # (Auto) 0.2, Basophils # (Auto) 0.1, Immature Granulocyte # (Auto) 0.0, Sodium Level 138, Potassium Level 4.2, Chloride Level 107, Carbon Dioxide Level 20L, Anion Gap 11, Blood Urea Nitrogen 27H, Creatinine 1.15, Estimat Glomerular Filtration Rate 49, BUN/Creatinine Ratio 23, Glucose Level 109H, Calcium Level 8.5, Corrected Calcium 8.8, Magnesium Level 2.0, Total Bilirubin 0.4, Aspartate Amino Transf (AST/SGOT) 25, Alanine Aminotransferase (ALT/SGPT) 33, Alkaline Phosphatase 66, Troponin I 0.073H, Total Protein 6.1L, Albumin 3.6, B-Type Natriuretic Peptide 479.4H, Triglycerides Level 118, Cholesterol Level 145, LDL Cholesterol Direct 72, VLDL Cholesterol 24, HDL Cholesterol 51 A/P-Cardiology Assessment/Admission Diagnosis New onset a-fib/flutter - converted to SR with Amiodarone gtt - first dx on ECG at [facility] ED on 08-08-22 Coronary artery disease - with a history of drug-eluting stenting of the right coronary artery in January 2008. - Last cardiac catheterization in August 31, 2015 showed angiographically mild CAD. 50% stenoses in the first diagonal (small caliber)and the second OM branches. These do not appear to be of hemodynamic significance. FFR across the lesion in the second OM branch is 0.95. A WAGNER in the RCA is widely patent and free of significant disease. LVEF 65%. Normal LVEDP - MPI of 05/21/18: No ischemia or infarction, LVEF 73% - Echocardiogram of 05-27-21 showed LVEF 50-55%. Mod concenteric hypertophy. Mild to mod MR. Mild AoVR. PASP 40-45mmHg - Echocardiogram of 02-13-22 showed LVEF 65-70%. Mild MR. Mild AoR. PASP 35-40 mmHg SVT - Brief episodes of wide-complex tach on Holter of 08/16/15. This has been evaluated by Dr Jacobson, her EP, on 01/10/16 and has been diagnosed as SVT with associated aberrancy. - History of paroxysmal supraventricular tachycardia for which she has had ablation therapy 06-19-[address] Jacobson. - Palpitations due to SVT for which verapamil initiated by Dr Jacobson on 01/10/16 Hypertension with component of white-coat hypertension - uncontrolled Pulmonary hypertension - followed and treated by her laser printing operator; PASP 65 on echo of 06/04/19, 40-45 mmHg on echo of 05/27/21 - RHC of 09-13-2021: Pulmonary artery pressure was 68/29 with a mean of 42 mmHg. Mean pulmonary capillary wedge pressure was 18 mmHg. Right ventricular pressure was 68/18. Mean right atrial pressure was 10 mmHg. Cardiac output by thermodilution was 3.7. Pulmonary vascular resistance is calculated to be 7.9 Wood units. Diastolic CHF - chronic - Normal LVEF on echocardiogram, however, some degree of elevated pulmonary wedge pressure as indicated on RHC of 09-13-21 Asthma - managed by Dr. Mendes Bilateral leg discomfort - JIM WNL from 04-05-15. Improved following with cortisone injection Sleep apnea - being treated with C-PAP therapy and being managed by Dr. 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 - Relative intolerance to atenolol (per her die maker apprentice, Dr Viera, who has informed her that that is the reason for hair loss) Bilateral lower extremity edema - likely secondary to venous insufficiency Carotid dz - Mild carotid art disease per u/s of -10-03 - Chronic vaginal yeast infection for which she in on chronic treatment per Dr Campos Abnormal ECG - ECG of 08/27/15 shows NSR and incomp LBBB, unchanged on 02/07/16 Bruising concerns - Easy bruising when on dual antiplatelet therapy Bilateral neuropathy - of the feet, resolved with B-12 replacement by her neurologist Surgery - H/o panniculectomy. Multiple medication intolerances Discussion and Recomendations * Very complex management because she reports allergies to all meds that are used for rate control during a fib * Currently in sinus on iv amio. Will change to oral amio, but amio not good intermediate manager solution for her because of pulm htn * Would need EP consult for consideration of ablation, given that meds are not a suitable fdc option for her * Apixaban has been added for stroke prophylaxis * The other issue is mild troponin elevation. This is likely type 2 DE due to A Fib with RVR. We recommend MPI for cor eval * Monitor labs * I discussed all of the above with her in detail and answered her questions Clinical Quality Measures AMI/AHF: ASA po Prior to arrival: Yes (81mg po daily) ANUPAM BAILEY MD FACP FAC CCDS Aug 09, 2022 16:40
[2022-08-09 17:15] VITALS: BP 149/75
[2022-08-09] MEDS: cloNIDine 0.1 MG (CATAPRES) TAB PO SCH (20:06)
[2022-08-09] MEDS: AMIODARONE 200 MG (CORDARONE) TAB PO SCH (23:41)
[2022-08-10 05:46] LABS: BASOPHILS # (AUTO) 0.1 10^3/uL (0.0-0.1); BASOPHILS % (AUTO) 2 % (0-10); EOSINOPHILS # (AUTO) 0.2 10^3/uL (0.0-0.3); EOSINOPHILS % (AUTO) 4 % (0-10); HEMATOCRIT 38 % (35-52); HEMOGLOBIN 12.3 g/dL (11.5-16.0); LYMPHOCYTES % (AUTO) 19 % (12-44); MEAN CORPUSCULAR HEMOGLOBIN 30 pg (25-34); MEAN CORPUSCULAR HGB CONC 32 g/dL (32-36); MEAN CORPUSCULAR VOLUME 94 fL (80-99); MONOCYTES # (AUTO) 0.5 10^3/uL (0.0-1.0); MONOCYTES % (AUTO) 9 % (0-12); NEUTROPHILS # (AUTO) 3.7 10^3/uL (1.8-7.8); NEUTROPHILS % (AUTO) 67 % (42-75); PLATELET COUNT 206 10^3/uL (130-400); WHITE BLOOD COUNT 5.5 10^3/uL (4.3-11.0)
[2022-08-10 06:01] LABS: POTASSIUM 4.2 MMOL/L (3.6-5.0)
[2022-08-10 06:02] LABS: CALCIUM 8.9 MG/DL (8.5-10.1)
[2022-08-10 06:07] LABS: CREATININE SERUM 0.81 MG/DL (0.60-1.30)
[2022-08-10 06:09] LABS: MAGNESIUM 2.2 MG/DL (1.6-2.4)
[2022-08-10] MEDS ORDERED: CATHETER FLUSH 10 ML SYR IVP PRN (07:45)
[2022-08-10] MEDS ORDERED: REGADENOSON 0.4 MG/5 ML SYR (LEXISCAN) IV ONE ×2 (07:50→08:30)
--- NOTE | 2022-08-10 08:55 | Progress Note - Cardiology ---
Cardiology SOAP Progress Note Subjective: No c/o CP, SOB, palpitations this morning She is concerned that one of the medications she received overnight caused her itch, but is unsure of what medication it was Objective: I&O/Vital Signs 08/09/22 08/09/22 08/09/22 08/09/22 21:00 22:00 23:00 23:59 Pulse 66 62 61 Resp 16 14 B/P (MAP) 127/71 (89) 105/73 (84) 137/76 (96) Pulse Ox 96 94 96 98 O2 Delivery Room Air Room Air Room Air Room Air 08/10/22 08/10/22 08/10/22 08/10/22 00:00 00:00 01:00 01:00 Temp 36.4 Pulse 65 68 63 Resp 19 B/P (MAP) 145/95 (112) 147/73 (97) Pulse Ox 95 97 O2 Delivery Room Air Room Air Room Air 08/10/22 08/10/22 08/10/22 08/10/22 02:00 03:00 04:00 04:00 Temp 35.9 Pulse 65 55 57 Resp 19 17 12 B/P (MAP) 133/72 (92) 109/63 (78) 127/73 (91) Pulse Ox 94 95 96 O2 Delivery Room Air Room Air Room Air Room Air 08/10/22 08/10/22 08/10/22 08/10/22 04:00 05:00 06:00 08:37 Pulse 60 56 78 Resp B/P (MAP) 140/87 (104) 129/69 (89) 196/109 (138) Pulse Ox 95 96 94 98 O2 Delivery Room Air Room Air Room Air 08/10/22 00:00 Intake Total 599 ml Output Total 0 ml Balance 599 ml Weight (Pounds): 182 Weight (Ounces): 0.0 Weight (Calculated Kilograms): 82.832892 Constitutional: AAO x 3, well-developed, well-nourished Respiratory: No accessory muscle use, No respiratory distress; chest expansion is symmetric, chest is bilaterally symmetric, lungs clear to auscultation Cardiovascular: regular rate-rhythm; No JVD; S1 and S2 Gastrointestional: No tender; soft, round, audible bowel sounds Extremities: no lower extremity edema bilateral Neurologic/Psychiatric: grossly intact (moves all extremities) Skin: No rash on exposed areas, No ulcerations on exposed areas Results/Procedures: Labs Laboratory Tests 08/10/22 04:24: White Blood Count 5.5, Red Blood Count 4.07, Hemoglobin 12.3, Hematocrit 38, Mean Corpuscular Volume 94, Mean Corpuscular Hemoglobin 30, Mean Corpuscular Hemoglobin Concent 32, Red Cell Distribution Width 14.1, Platelet Count 206, Mean Platelet Volume 11.0, Immature Granulocyte % (Auto) 0, Neutrophils (%) (Auto) 67, Lymphocytes (%) (Auto) 19, Monocytes (%) (Auto) 9, Eosinophils (%) (Auto) 4, Basophils (%) (Auto) 2, Neutrophils # (Auto) 3.7, Lymphocytes # (Auto) 1.0, Monocytes # (Auto) 0.5, Eosinophils # (Auto) 0.2, Basophils # (Auto) 0.1, Immature Granulocyte # (Auto) 0.0, Sodium Level 139, Potassium Level 4.2, Chloride Level 109H, Carbon Dioxide Level 20L, Anion Gap 10, Blood Urea Nitrogen 15, Creatinine 0.81, Estimat Glomerular Filtration Rate 75, BUN/Creatinine Ratio 19, Glucose Level 87, Calcium Level 8.9, Phosphorus Level 3.0, Magnesium Level 2.2, Troponin I 0.038H Laboratory Tests 08/08/22 20:25 08/09/22 06:02 08/10/22 04:24 A/P: Assessment: New onset a-fib/flutter - converted to SR with Amiodarone gtt - first dx on ECG at [facility] ED on 08-08-22 Coronary artery disease - with a history of drug-eluting stenting of the right coronary artery in January 2008. - Last cardiac catheterization in August 31, 2015 showed angiographically mild CAD. 50% stenoses in the first diagonal (small caliber)and the second OM branches. These do not appear to be of hemodynamic significance. FFR across the lesion in the second OM branch is 0.95. A WAGNER in the RCA is widely patent and free of significant disease. LVEF 65%. Normal LVEDP - MPI of 05/21/18: No ischemia or infarction, LVEF 73% - Echocardiogram of 05-27-21 showed LVEF 50-55%. Mod concenteric hypertophy. Mild to mod MR. Mild AoVR. PASP 40-45mmHg - Echocardiogram of 02-13-22 showed LVEF 65-70%. Mild MR. Mild AoR. PASP 35-40 mmHg SVT - Brief episodes of wide-complex tach on Holter of 08/16/15. This has been evaluated by Dr Jacobson, her EP, on 01/10/16 and has been diagnosed as SVT with associated aberrancy. - History of paroxysmal supraventricular tachycardia for which she has had ablation therapy 06-19-[address] Jacobson. - Palpitations due to SVT for which verapamil initiated by Dr Jacobson on 01/10/16 Hypertension with component of white-coat hypertension - uncontrolled Pulmonary hypertension - followed and treated by her advisory application developer; PASP 65 on echo of 06/04/19, 40-45 mmHg on echo of 05/27/21 - RHC of 09-13-2021: Pulmonary artery pressure was 68/29 with a mean of 42 mmHg. Mean pulmonary capillary wedge pressure was 18 mmHg. Right ventricular pressure was 68/18. Mean right atrial pressure was 10 mmHg. Cardiac output by thermodilution was 3.7. Pulmonary vascular resistance is calculated to be 7.9 Wood units. Diastolic CHF - chronic - Normal LVEF on echocardiogram, however, some degree of elevated pulmonary wedge pressure as indicated on RHC of 09-13-21 Asthma - managed by Dr. Mendes Bilateral leg discomfort - JIM WNL from 04-05-15. Improved following with cortisone injection Sleep apnea - being treated with C-PAP therapy and being managed by Dr. 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 - Relative intolerance to atenolol (per her forgesmith, Dr Viera, who has informed her that that is the reason for hair loss) Bilateral lower extremity edema - likely secondary to venous insufficiency Carotid dz - Mild carotid art disease per u/s of 06-17-21 - Chronic vaginal yeast infection for which she in on chronic treatment per Dr Campos Abnormal ECG - ECG of 08/27/15 shows NSR and incomp LBBB, unchanged on 02/07/16 Bruising concerns - Easy bruising when on dual antiplatelet therapy Bilateral neuropathy - of the feet, resolved with B-12 replacement by her neurologist Surgery - H/o panniculectomy. Multiple medication intolerances Plan: * Very complex management because she reports allergies to all meds that are used for rate control during a fib * Currently in sinus rhythm and has been changed to oral, but amio not good supervisor intermediates solution for her because of pulm htn * Would need EP consult for consideration of ablation, given that meds are not a suitable jail option for her * Apixaban has been added for stroke prophylaxis * The other issue is mild troponin elevation. This is likely type 2 [place] due to A Fib with RVR. * We recommend MPI for cor eval - pending today * Monitor labs Clinical Quality Measures AMI/AHF: ASA po Prior to arrival: Yes (81mg po daily) SHENA SMITH Aug 10, 2022 08:55
[2022-08-10] MEDS: APIXABAN 5 MG (ELIQUIS) TABLET PO SCH (09:38)
[2022-08-10] MEDS: cloNIDine 0.1 MG (CATAPRES) TAB PO SCH ×2 (09:38→12:45)
[2022-08-10] MEDS: AMIODARONE 200 MG (CORDARONE) TAB PO SCH (09:38)
[2022-08-10] MEDS ORDERED: AMIO200T65 PO (10:23)
[2022-08-10] MEDS ORDERED: APIX5TAB PO (10:23)
[2022-08-10] MEDS ORDERED: amLODIPine 10 MG (NORVASC) TAB PO NR (10:30)
[2022-08-10] MEDS ORDERED: MULT-1029 PO (10:51)
[2022-08-10] MEDS ORDERED: FURO40TA4 PO (10:51)
[2022-08-10] MEDS ORDERED: MONT-40 PO (10:51)
[2022-08-10] MEDS ORDERED: SILD20TA14 PO (10:51)
[2022-08-10] MEDS ORDERED: ACET-2267 PO (10:51)
[2022-08-10] MEDS ORDERED: ATOR40TA70 PO (10:51)
[2022-08-10] MEDS ORDERED: UBID30CA13 PO (10:51)
[2022-08-10] MEDS ORDERED: LATA2.5D19 OU (10:51)
[2022-08-10] MEDS ORDERED: TRZ50T PO (10:51)
[2022-08-10] MEDS ORDERED: PANT40TA52 PO (10:51)
[2022-08-10] MEDS ORDERED: POTA-177 PO (10:51)
[2022-08-10] MEDS ORDERED: BUDE10.26 INH (10:51)
[2022-08-10] MEDS ORDERED: PROP10DR2 OU (10:51)
--- NOTE | 2022-08-10 13:46 | Discharge Inst-Cardiology ---
Discharge Inst-Cardiac Discharge Medications New Medications: Amiodarone HCl (Amiodarone HCl) 200 Mg Tablet 400 MG PO BID, #120 TAB 3 Refills Apixaban (Eliquis) 5 Mg Tablet 5 MG PO BID, #60 TAB 3 Refills Continued Medications: Acetaminophen (Tylenol Extra Strength) 500 Mg Tablet 1000 MG PO Q8H PRN for PAIN-MILD (1-4), TAB Aspirin (Aspirin EC) 81 Mg Tablet.dr 81 MG PO HS, TAB Atorvastatin Calcium (Atorvastatin Calcium) 40 Mg Tablet 40 MG PO HS, TAB Budesonide/Formoterol Fumarate (Budesonide-Formoterol 160-4.5) 160 Mcg-4.5 Mcg/Actuation Hfa.aer.ad 2 PUFF INH BID, EA Clonidine HCl (Clonidine HCl) 0.1 Mg Tablet 0.1 MG PO 0800,1400,1999, TAB Ergocalciferol (Vitamin D2) (Vitamin D2) 1,250 Mcg Capsule 1250 MCG PO SUNDAY, CAP Furosemide (Furosemide) 40 Mg Tablet 40 MG PO Q48H, TAB Latanoprost (Xalatan) 0.005 % Drops 1 DROP OU HS, EA Montelukast Sodium (Montelukast Sodium) 10 Mg Tablet 10 MG PO HS, TAB Multivit-Min/FA/Lycopene/Lut (Centrum Silver Tablet) 0.4 Mg-300 Mcg-250 Mcg Tab let 1 EACH PO DAILY, TAB Pantoprazole Sodium (Pantoprazole Sodium) 40 Mg Tablet.dr 40 MG PO DAILY PRN for HEARTBURN, TAB Potassium Chloride (Potassium Chloride) 10 Meq Tab.er.prt 10 MEQ PO Q48H Propylene Glycol/Peg 400 (Systane Ultra 0.4-0.3% Eye Drp) 0.3 %-0.4 % Drops 1-2 DROPS OU UD PRN for DRY EYES, DROPS Sildenafil Citrate (Sildenafil) 20 Mg Tablet 20 MG PO 0800,1400,1999, TAB Trazodone HCl (Trazodone HCl) 50 Mg Tablet 50 MG PO HS, TAB Ubidecarenone (Coq-10) 30 Mg Capsule 30 MG PO DAILY, CAP Discontinued Medications: Benazepril HCl (Lotensin) 40 Mg Tablet 40 MG PO DAILY PRN for BLOOD PRESSURE, TAB TAKE IF BLOOD PRESSURE IS 100+ Patient Instructions Patient Instructions: Keep already scheduled f/u appt for Aug 21 at 1:00 with SHENA Garcia Aug 10, 2022 13:46
--- NOTE | 2022-08-10 14:31 | STRESS TEST ---
DATE OF SERVICE: 08/10/2022 RESTING AND POST REGADENOSON TECHNETIUM-99M TETROFOSMIN SPECT CT IMAGING ORDERING PHYSICIAN: JOSEFINA Trevizo PRIMARY PHYSICIAN: Dr. Muhammad. OTHER PHYSICIAN: Dr. Cui. CLINICAL DIAGNOSES: Elevated troponin, paroxysmal atrial fibrillation. Baseline images were carried out after injection of 10.91 mCi technetium-99m Tetrofosmin. This was followed by 0.4 mg regadenoson and 31 mCi of technetium-99m tetrofosmin for stress imaging. Electrocardiogram showed sinus rhythm with left bundle branch block at baseline. It did not change significantly with regadenoson infusion. The patient tolerated the procedure well. Review of images at rest and following stress does not indicate any distinct perfusion defects consistent with significant myocardial ischemia or infarction. Gated images showed normal global left ventricular systolic function with normal regional wall motion. Left ventricular ejection fraction is calculated to be 71%. CONCLUSIONS: 1. No evidence of any significant myocardial ischemia or infarction on this study. 2. Normal regional wall motion. 3. Normal global left ventricular systolic function with a calculated ejection fraction of 71%. Job ID: [id number] DocumentID: [id number] Dictated Date: 08/10/2022 12:08:07 [place]er Date: 08/10/2022 14:28:00 Dictated By: ANUPAM CUI MD; ORA; FACP; FACC;
[2022-08-10] MEDS ORDERED: FUROSEMIDE 40 MG (LASIX) TAB PO SCH (16:30)
--- NOTE | 2022-08-10 17:01 | Progress Note - Cardiology ---
Cardiology SOAP Progress Note Subjective: No cp or palp or syncope or shortness of breath No n/v/d Refused amlodipine for hypertension. Reports allerg No focal weakness Objective: I&O/Vital Signs 08/10/22 08/10/22 08/10/22 08/10/22 05:00 06:00 07:00 08:00 Pulse 60 56 58 Resp 25 23 B/P (MAP) 140/87 (104) 129/69 (89) Pulse Ox 96 94 97 O2 Delivery Room Air Room Air Room Air 08/10/22 08/10/22 08/10/22 08/10/22 08:37 09:34 10:00 11:00 Temp 36.0 Pulse 78 70 58 Resp 19 B/P (MAP) 196/109 (138) 181/104 (129) 164/94 (117) Pulse Ox 98 98 94 O2 Delivery Room Air Room Air 08/10/22 08/10/22 08/10/22 08/10/22 11:25 12:00 13:00 13:00 Temp 36.2 Pulse 64 64 67 B/P (MAP) 161/83 (109) 142/69 (93) Pulse Ox 98 98 O2 Delivery Room Air Room Air 08/10/22 00:00 Intake Total 599 ml Output Total 0 ml Balance 599 ml Weight (Pounds): 182 Weight (Ounces): 0.0 Weight (Calculated Kilograms): [id number] Constitutional: AAO x 3, well-developed, well-nourished Respiratory: No accessory muscle use, No respiratory distress; chest expansion is symmetric, chest is bilaterally symmetric, lungs clear to auscultation Cardiovascular: regular rate-rhythm; No JVD; S1 and S2 Gastrointestional: No tender; soft, round, audible bowel sounds Extremities: no lower extremity edema bilateral Neurologic/Psychiatric: other (moves all limbs equally) Skin: No rash on exposed areas, No ulcerations on exposed areas Results/Procedures: Labs Laboratory Tests 08/10/22 04:24: White Blood Count 5.5, Red Blood Count 4.07, Hemoglobin 12.3, Hematocrit 38, Mean Corpuscular Volume 94, Mean Corpuscular Hemoglobin 30, Mean Corpuscular Hemoglobin Concent 32, Red Cell Distribution Width 14.1, Platelet Count 206, Mean Platelet Volume 11.0, Immature Granulocyte % (Auto) 0, Neutrophils (%) (Auto) 67, Lymphocytes (%) (Auto) 19, Monocytes (%) (Auto) 9, Eosinophils (%) (Auto) 4, Basophils (%) (Auto) 2, Neutrophils # (Auto) 3.7, Lymphocytes # (Auto) 1.0, Monocytes # (Auto) 0.5, Eosinophils # (Auto) 0.2, Basophils # (Auto) 0.1, Immature Granulocyte # (Auto) 0.0, Sodium Level 139, Potassium Level 4.2, Chloride Level 109H, Carbon Dioxide Level 20L, Anion Gap 10, Blood Urea Nitrogen 15, Creatinine 0.81, Estimat Glomerular Filtration Rate 75, BUN/Creatinine Ratio 19, Glucose Level 87, Calcium Level 8.9, Phosphorus Level 3.0, Magnesium Level 2.2, Troponin I 0.038H A/P: Assessment: New onset a-fib/flutter - converted to SR with Amiodarone gtt - first dx on ECG at [facility] ED on 08-08-22 Mild troponin elevation - type 2 [place] due to A Fib with RVR (see MPI results below) Coronary artery disease - with a history of drug-eluting stenting of the right coronary artery in January 2008. - Last cardiac catheterization in August 31, 2015 showed angiographically mild CAD. 50% stenoses in the first diagonal (small caliber)and the second OM branches. These do not appear to be of hemodynamic significance. FFR across the lesion in the second OM branch is 0.95. A WAGNER in the RCA is widely patent and free of significant disease. LVEF 65%. Normal LVEDP - MPI of 05/21/18: No ischemia or infarction, LVEF 73% - MPI of 08/10/22: No evidence of any significant myocardial ischemia or infarction on this study. Normal regional wall motion. Normal global left ventricular systolic function with a calculated ejection fraction of 71%. SVT - Brief episodes of wide-complex tach on Holter of 08/16/15. This has been evaluated by Dr Jacobson, her EP, on 01/10/16 and has been diagnosed as SVT with associated aberrancy. - History of paroxysmal supraventricular tachycardia for which she has had ablation therapy 06-19-[address] Jacobson. - Palpitations due to SVT for which verapamil initiated by Dr Jacobson on 01/10/16 but she now reports allergy to all calcium channel blockers Hypertension with component of white-coat hypertension - uncontrolled Pulmonary hypertension - followed and treated by her thermometer tester; PASP 65 on echo of 06/04/19, 40-45 mmHg on echo of 05/27/21 - RHC of 09-13-2021: Pulmonary artery pressure was 68/29 with a mean of 42 mmHg. Mean pulmonary capillary wedge pressure was 18 mmHg. Right ventricular pressure was 68/18. Mean right atrial pressure was 10 mmHg. Cardiac output by thermodilution was 3.7. Pulmonary vascular resistance is calculated to be 7.9 Wood units. - Echo of 08/10/22: LVEF 60-65%, mild LAE, mild to mod MR, trivial AI PASP 65-70 mmHg Diastolic CHF - chronic - Normal LVEF on echocardiogram, however, some degree of elevated pulmonary wedge pressure as indicated on RHC of 09-13-21 Asthma - managed by Dr. Mendes Bilateral leg discomfort - JIM WNL from 04-05-15. Improved following with cortisone injection Sleep apnea - being treated with C-PAP therapy and being managed by Dr. 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 (supple K stopped by Dr Mendes in Feb 2022) GI - Gastroesophageal reflux Hyperlipidemia - being treated with statin therapy Osteoporosis - managed by PCP Hair loss - Intolerance to beta-anne because her air defense artillery senior sergeant, Dr Viera, informed her that that was the reason for hair loss Bilateral lower extremity edema - likely secondary to venous insufficiency Carotid dz - Mild carotid art disease per u/s of 06-17-21 - Chronic vaginal yeast infection for which she in on chronic treatment per Dr Campos Abnormal ECG - ECG of 08/27/15 shows NSR and incomp LBBB, unchanged on 02/07/16 Bruising concerns - Easy bruising when on dual antiplatelet therapy Bilateral neuropathy - of the feet, resolved with B-12 replacement by her neurologist Surgery - H/o panniculectomy. Multiple medication intolerances Plan: * Very complex management because she reports allergies to all meds that are used for rate control during a fib * Currently in sinus rhythm and has been changed to oral, but amio not good lobsterman solution for her because of pulm htn * Would need EP consult for consideration of ablation, given that meds are not a suitable skilled nursing option for her. Discussed with her. Will refer to EP at as an outpatient * I forwarded her info to Dr Cline of EP svce at after having discussed this with Ms. Romankrystyna and after having obtained her permission to forward her info to the automation consultant * Apixaban has been added for stroke prophylaxis * We discussed the results of MPI and echo done today and answered questions Clinical Quality Measures AMI/AHF: ASA po Prior to arrival: Yes (81mg po daily) ANUPAM BAILEY MD FACP FAC CCDS Aug 10, 2022 17:01
--- NOTE | 2022-08-10 17:13 | Cardiology Discharge Summary ---
Diagnosis/Chief Complaint Date of Admission Aug 09, 2022 at 16:30 Date of Discharge Final/Discharge Diagnosis New onset a-fib/flutter - converted to SR with Amiodarone gtt - first dx on ECG at [facility] ED on 08-08-22 Mild troponin elevation - type 2 [place] due to A Fib with RVR (see MPI results below) Coronary artery disease - with a history of drug-eluting stenting of the right coronary artery in January 2008. - Last cardiac catheterization in August 31, 2015 showed angiographically mild CAD. 50% stenoses in the first diagonal (small caliber)and the second OM branches. These do not appear to be of hemodynamic significance. FFR across the lesion in the second OM branch is 0.95. A WAGNER in the RCA is widely patent and free of significant disease. LVEF 65%. Normal LVEDP - MPI of 05/21/18: No ischemia or infarction, LVEF 73% - MPI of 08/10/22: No evidence of any significant myocardial ischemia or infarction on this study. Normal regional wall motion. Normal global left ventricular systolic function with a calculated ejection fraction of 71%. SVT - Brief episodes of wide-complex tach on Holter of 08/16/15. This has been evalu ated by Dr Jacobson, her EP, on 01/10/16 and has been diagnosed as SVT with associated aberrancy. - History of paroxysmal supraventricular tachycardia for which she has had ablation therapy 06-19-[address] Jacobson. - Palpitations due to SVT for which verapamil initiated by Dr Jacobson on 01/10/16 but she now reports allergy to all calcium channel blockers Hypertension with component of white-coat hypertension - uncontrolled Pulmonary hypertension - followed and treated by her sports physiologist; PASP 65 on echo of 06/04/19, 40-45 mmHg on echo of 05/27/21 - RHC of 09-13-2021: Pulmonary artery pressure was 68/29 with a mean of 42 mmHg. Mean pulmonary capillary wedge pressure was 18 mmHg. Right ventricular pressure was 68/18. Mean right atrial pressure was 10 mmHg. Cardiac output by thermodilution was 3.7. Pulmonary vascular resistance is calculated to be 7.9 Wood units. - Echo of 08/10/22: LVEF 60-65%, mild LAE, mild to mod MR, trivial AI PASP 65-70 mmHg Diastolic CHF - chronic - Normal LVEF on echocardiogram, however, some degree of elevated pulmonary wedge pressure as indicated on RHC of 09-13-21 Asthma - managed by Dr. Mendes Bilateral leg discomfort - JIM WNL from 04-05-15. Improved following with cortisone injection Sleep apnea - being treated with C-PAP therapy and being managed by Dr. 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 (supple K stopped by Dr Mendes in Feb 2022) GI - Gastroesophageal reflux Hyperlipidemia - being treated with statin therapy Osteoporosis - managed by PCP Hair loss - Intolerance to beta-anne because her selling specialist, Dr Viera, informed her that that was the reason for hair loss Bilateral lower extremity edema - likely secondary to venous insufficiency Carotid dz - Mild carotid art disease per u/s of 06-17-21 - Chronic vaginal yeast infection for which she in on chronic treatment per Dr Campos Abnormal ECG - ECG of 08/27/15 shows NSR and incomp LBBB, unchanged on 02/07/16 Bruising concerns - Easy bruising when on dual antiplatelet therapy Bilateral neuropathy - of the feet, resolved with B-12 replacement by her neurologist Surgery - H/o panniculectomy. Multiple medication intolerances Chief Complaint/HPI Chief Complaint/HPI Ms. Brown is a 77 yr old female who I have seen in the ED. She reports she started to feel SOB, weak, lightheaded on Sunday. She reports her symptoms continued yesterday and progressively became worse at the day went on. She states she became so weak and lightheaded at times she felt as though she would pass out. She states she checked her HR at home and noted it to be 130's to 70's. She denies any c/o CP, palpitations, no near syncope or ghislaine syncope. No LE swelling. She was found to be in a-fib in the ED. She has converted to SR on Amiodarone gtt. She reports no SOB at rest. Please refer to our progress note of today's date for hospital course and condition at discharge. Discharge Summary Discussion & Recommendations Home Medications Reviewed patient Home Medication Reconciliation performed by pharmacy medication reconciliations machines technician and/or nursing. Patients Allergies have been reviewed. Discharge Home Medications: Reviewed and agree with Discharge Medication list on patient's Discharge Instruction sheet Clinical Quality Measures AMI/AHF: ASA po Prior to arrival: Yes (81mg po daily) ANUPAM BAILEY MD FACP FAC CCDS Aug 10, 2022 17:13
[2022-08-11] MEDS ORDERED: amLODIPine 5 MG (NORVASC) TAB PO SCH (09:00)
== END 2022-08-10 17:00 | disposition home or self-care (01) | DRG 281 ==
LOC: EDUNIT# 20:05 → ER 20:07 → ICU 08-09 16:30
PROVIDERS: ADMIT Internal Medicine Cardiovascular Disease; ATTEND Internal Medicine Cardiovascular Disease
DX: I48.92 Unspecified atrial flutter (principal); I21.A1 Myocardial infarction type 2; I13.0 Hypertensive heart and chronic kidney disease with heart failure and stage 1 through stage 4 chronic kidney disease, or unspecified chronic kidney disease; I50.32 Chronic diastolic (congestive) heart failure; I48.91 Unspecified atrial fibrillation; Z79.82 Long term (current) use of aspirin; Z79.899 Other long term (current) drug therapy; I25.10 Atherosclerotic heart disease of native coronary artery without angina pectoris; I25.2 Old myocardial infarction; K21.9 Gastro-esophageal reflux disease without esophagitis; G47.39 Other sleep apnea; I47.1 Supraventricular tachycardia; I27.20 Pulmonary hypertension, unspecified; J45.909 Unspecified asthma, uncomplicated; N18.30 Chronic kidney disease, stage 3 unspecified; E78.5 Hyperlipidemia, unspecified; M81.0 Age-related osteoporosis without current pathological fracture; L65.9 Nonscarring hair loss, unspecified; I77.9 Disorder of arteries and arterioles, unspecified; G62.9 Polyneuropathy, unspecified; I87.2 Venous insufficiency (chronic) (peripheral); B37.31 Acute candidiasis of vulva and vagina
CPT/HCPCS: 36415; 71045; 78452; 80048; 80053; 80061; 83735; 83880; 84100; 84484; 85025; 85610; 85730; 93005; 93017; 93041; 93306

== ENCOUNTER 2022-09-22 06:14 | Inpatient (IN) | payer MEDICARE, BC ==
[~2022-09-22] VITALS: Ht 165 cm; Wt 79.2 kg
[~2022-09-22 06:14] MED LIST changes: +ACET-2267 PO; +AMIO200T65 PO; +APIX5TAB PO; +ATOR40TA70 PO; +BUDE10.26 INH; +LATA2.5D19 OU; +MONT-40 PO; +MULT-1029 PO; +PANT40TA52 PO; +POTA-177 PO; +PROP10DR2 OU; +SILD20TA14 PO; +TRZ50T PO; +UBID30CA13 PO
[2022-09-22 06:53] LABS: BASOPHILS # (AUTO) 0.1 10^3/uL (0.0-0.1); BASOPHILS % (AUTO) 1 % (0-10); EOSINOPHILS # (AUTO) 0.2 10^3/uL (0.0-0.3); EOSINOPHILS % (AUTO) 2 % (0-10); HEMATOCRIT 38 % (35-52); HEMOGLOBIN 12.2 g/dL (11.5-16.0); LYMPHOCYTES # (AUTO) 1.6 10^3/uL (1.0-4.0); LYMPHOCYTES % (AUTO) 16 % (12-44); MEAN CORPUSCULAR HEMOGLOBIN 30 pg (25-34); MEAN CORPUSCULAR HGB CONC 32 g/dL (32-36); MEAN CORPUSCULAR VOLUME 92 fL (80-99); MEAN PLATELET VOLUME 10.3 fL (9.0-12.2); MONOCYTES # (AUTO) 0.9 10^3/uL (0.0-1.0); MONOCYTES % (AUTO) 9 % (0-12); NEUTROPHILS # (AUTO) 7.3 10^3/uL (1.8-7.8); NEUTROPHILS % (AUTO) 72 % (42-75); PLATELET COUNT 411 10^3/uL (130-400); WHITE BLOOD COUNT 10.2 10^3/uL (4.3-11.0)
[2022-09-22 07:01] LABS: POTASSIUM 4.2 MMOL/L (3.6-5.0)
[2022-09-22 07:07] LABS: CREATININE SERUM 1.22 MG/DL (0.60-1.30)
[2022-09-22 07:09] LABS: MAGNESIUM 1.7 MG/DL (1.6-2.4)
[2022-09-22] MEDS ORDERED: APIXABAN 5 MG (ELIQUIS) TABLET PO ONE (07:15)
[2022-09-22] MEDS ORDERED: AMIODARONE INJECTION 450 MG in NORMAL SALINE 250 ML IV SCH (07:15)
[2022-09-22] MEDS ORDERED: AMIODARONE FOR BOLUS 150 MG in NS (IVPB) 100 ML IV ONE (07:15)
--- NOTE | 2022-09-22 07:31 | ED Cardiac General ---
History of Present Illness General Chief Complaint: Cardiac/General Problems Stated Complaint: IRREGULAR HEART RATE Nursing Triage Note: Patient states since 2330 last night complaint of irregular heart rate. states blood pressure reading at home of her heart rate read 115. patient states 09/06 had an unsuccessful ablation, and a placement of loop recorder. Source: patient, old records, other (patients notes) Exam Limitations: no limitations History of Present Illness Date Seen by Provider: Sep 22, 2022 Time Seen by Provider: 06:27 Initial Comments This 77-year-old woman presents to the emergency room with complaints of atrial fibrillation with symptoms of mild dyspnea and chest pressure. Symptoms started approximately 2330 last night. She has paroxysmal atrial fibrillation for which she was admitted on August 09. She converted on an amiodarone drip and was referred for ablation. She does not take calcium channel anne such as Cardizem due to allergy of hives. She was instructed by her professor of art, Dr. Suh, to avoid beta-blockers to prevent exacerbation of pulmonary disease. She presents today in atrial fibrillation with heart rate ranging from the 80s to 110s. She occasionally jumps up to the 120s and 130s. Her chart from prior admission was reviewed. She did have an elevated troponin deemed to be type II [place] with a negative stress test. Dr. Gramajo is her primary skidder operator. Dr. Muhammad is her primary care provider. She did have ablation attempted on September [address] Cline in [place]. The procedure failed and was aborted due to pericardial perforation and cardiac tamponade. Allergies and Home Medications Allergies Coded Allergies: NILDA Inhibitors (Verified Allergy, Unknown, 08/08/22) Beta-Blockers (Beta-Adrenergic Bloc (Verified Allergy, Unknown, 08/08/22) NSAIDS (Non-Steroidal Anti-Inflamma (Verified Allergy, Unknown, 09/22/22) bupivacaine (Verified Allergy, Unknown, 09/22/22) LOW BP citalopram hydrobromide (Verified Allergy, Unknown, rebound headache and dizzy, 11/05/20) diltiazem (Verified Allergy, Unknown, RASH,ITCHING, 11/28/05) levofloxacin (Verified Allergy, Unknown, 09/22/22) omeprazole magnesium (Verified Allergy, Unknown, severe stomach ache, 11/05/20) ondansetron (Verified Allergy, Unknown, 09/22/22) LOW BP propranolol (Verified Allergy, Unknown, DEPRESSION,RASH,HEADACHE, 11/28/05) sucralfate (Verified Allergy, Unknown, RASH,ITCHING, 11/28/05) terfenadine (Verified Allergy, Unknown, SEVERE HIVES/RASH, 11/28/05) amlodipine (Verified Adverse Reaction, Intermediate, 08/10/22) acetaminophen (Verified Adverse Reaction, Unknown, NAUSEA/HEADACHE, 11/28/05) ciprofloxacin (Unverified Adverse Reaction, Unknown, SEVERE STOMACH ACHE AND RELUX, 11/05/20) clindamycin (Unverified Adverse Reaction, Unknown, BURNING RASH ON FACE, 11/05/20) codeine (Verified Adverse Reaction, Unknown, NAUSEA/HEADACHE, 11/28/05) dicloxacillin (Unverified Adverse Reaction, Unknown, HEADACHE/NAUSEA, 11/05/20) digoxin (Verified Adverse Reaction, Unknown, JITTERY, PALPITATIONS, 11/28/05) hydrocodone (Verified Adverse Reaction, Unknown, DIZZINESS, NAUSEA, 11/28/05) medroxyprogesterone (Verified Adverse Reaction, Unknown, WT. GAIN, 11/28/05) omeprazole (Verified Adverse Reaction, Unknown, SEVERE STOMACHACHE/GALARZA, 11/28/05) oxybutynin (Unverified Adverse Reaction, Unknown, EXTREME DRY MOUTH, 11/05/20) propoxyphene (Verified Adverse Reaction, Unknown, GALARZA, N, DIZZY, 11/28/05) verapamil (Verified Adverse Reaction, Unknown, JITERY,PALPITATIONS, 11/28/05) Patient Home Medication List Home Medication List Reviewed: Yes Acetaminophen (Tylenol Extra Strength) 500 Mg Tablet, 1,000 MG PO Q8H PRN for P AIN-MILD (1-4), (Reported) Entered as Reported by: BARTOLO DURÁN on 08/10/22 1051 Last Action: Held Amiodarone HCl (Amiodarone HCl) 200 Mg Tablet, 400 MG PO DAILY, (Reported) Entered as Reported by: BARTOLO DURÁN on 09/22/22 497 Last Action: Held Apixaban (Eliquis) 5 Mg Tablet, 5 MG PO BID, (Reported) Entered as Reported by: BARTOLO DURÁN on 09/22/22 546 Last Action: Held Aspirin (Aspirin EC) 81 Mg Tablet.dr, 81 MG PO HS, (Reported) Entered as Reported by: YAZ PERDOMO on 08/31/15821 Last Action: Continued Atorvastatin Calcium (Atorvastatin Calcium) 40 Mg Tablet, 40 MG PO HS, (Reported) Entered as Reported by: BARTOLO DURÁN on 08/10/221050 Last Action: Continued Azelaic Acid (Finacea) 15 % Gel..gram., 1 APPLIC TP DAILY PRN for ROSACEA, (Reported) Entered as Reported by: BARTOLO DURÁN on 09/22/221456 Last Action: Held Budesonide/Formoterol Fumarate (Budesonide-Formoterol 160-4.5) 160 Mcg-4.5 Mcg/Actuation Hfa.aer.ad, 2 PUFF INH BID, (Reported) Entered as Reported by: BARTOLO DURÁN on 08/10/221050 Last Action: Converted Clonidine HCl (Clonidine HCl) 0.1 Mg Tablet, 0.1 MG PO DAILY PRN for BLOOD PRESSURE, (Reported) Entered as Reported by: YAZ PERDOMO on 08/31/15821 Last Action: Held Ergocalciferol (Vitamin D2) (Vitamin D2) 1,250 Mcg Capsule, 1,250 MCG PO SUNDAY, (Reported) Entered as Reported by: TARA KAMARA on 09/13/21816 Last Action: Continued Estradiol (Climara Patch Weekly 0.05mg/hr) 0.05 Mg/24 Hour Patch.tdwk, 1 EACH TD SAT, (Reported) Entered as Reported by: BARTOLO DURÁN on 09/22/221456 Last Action: Held Furosemide (Furosemide) 40 Mg Tablet, 40 MG PO Q72H, (Reported) Entered as Reported by: BARTOLO DURÁN on 08/10/221050 Last Action: Held Latanoprost (Xalatan) 0.005 % Drops, 1 DROP OU HS, (Reported) Entered as Reported by: BARTOLO DURÁN on 08/10/221050 Last Action: Continued Losartan Potassium (Losartan Potassium) 25 Mg Tablet, 12.5 MG PO DAILY, (Reported) Entered as Reported by: BARTOLO DURÁN on 09/22/221456 Last Action: Held Montelukast Sodium (Montelukast Sodium) 10 Mg Tablet, 10 MG PO HS, (Reported) Entered as Reported by: BARTOLO DURÁN on 08/10/221050 Last Action: Continued Pantoprazole Sodium (Protonix) 40 Mg Tablet.dr, 40 MG PO BID, (Reported) Entered as Reported by: BARTOLO DURÁN on 09/22/22 1307 Last Action: Reviewed Potassium Chloride (Potassium Chloride) 10 Meq Tab.er.prt, 10 MEQ PO Q72H, (Re ported) Entered as Reported by: BARTOLO DURÁN on 08/10/221050 Last Action: Held Propylene Glycol/Peg 400 (Systane Ultra 0.4-0.3% Eye Drp) 0.3 %-0.4 % Drops, 1-2 DROPS OU UD PRN for DRY EYES, (Reported) Entered as Reported by: BARTOLO DURÁN on 08/10/221050 Last Action: Held Sildenafil Citrate (Sildenafil) 20 Mg Tablet, 20 MG PO 0800,1400,2000, (Reported) Entered as Reported by: BARTOLO DURÁN on 08/10/221050 Last Action: Converted Trazodone HCl (Trazodone HCl) 50 Mg Tablet, 50 MG PO HS, (Reported) Entered as Reported by: BARTOLO DURÁN on 08/10/221050 Last Action: Continued Discontinued Medications Amiodarone HCl (Amiodarone HCl) 200 Mg Tablet, 400 MG PO BID Discontinued Reason: No Longer Taking Prescribed by: SHENA SMITH on 08/10/22 102 Last Action: Discontinued Apixaban (Eliquis) 5 Mg Tablet, 5 MG PO BID Discontinued Reason: No Longer Taking Prescribed by: SHENA SMITH on 08/10/221022 Last Action: Discontinued Multivit-Min/FA/Lycopene/Lut (Centrum Silver Tablet) 0.4 Mg-300 Mcg-250 Mcg Tablet, 1 EACH PO DAILY, (Reported) Discontinued Reason: No Longer Taking Entered as Reported by: BARTOLO DURÁN on 08/10/221050 Last Action: Discontinued Pantoprazole Sodium (Pantoprazole Sodium) 40 Mg Tablet.dr, 40 MG PO DAILY PRN for HEARTBURN, (Reported) Discontinued Reason: No Longer Taking Entered as Reported by: BARTOLO DURÁN on 08/10/221050 Last Action: Discontinued Ubidecarenone (Coq-10) 30 Mg Capsule, 30 MG PO DAILY, (Reported) Discontinued Reason: No Longer Taking Entered as Reported by: BARTOLO DURÁN on 08/10/22 1051 Last Action: Discontinued Review of Systems Review of Systems Constitutional: no symptoms reported EENTM: No Symptoms Reported Respiratory: See HPI Cardiovascular: See HPI Gastrointestinal: No Symptoms Reported Genitourinary: No Symptoms Reported Musculoskeletal: no symptoms reported Skin: no symptoms reported Psychiatric/Neurological: No Symptoms Reported Endocrine: No Symptoms Reported Hematologic/Lymphatic: No Symptoms Reported Past Enaqcos-Ohegvp-Ylwqrf Hx Patient Social History Tobacco Use?: No Use of E-Cig and/or Vaping dev: No Substance use?: No Alcohol Use?: No Immunizations Up To Date First/Initial COVID19 Vaccinat: AUG 2020 Second COVID19 Vaccination Lance: SEPTEMBER 2020 Third COVID19 Vaccination Date: AUG 2020 Past Medical History Surgery/Hospitalization HX: Afib, loop recorder, unsuccessful ablation Surgeries: Yes Cardiac (Failed cardiac ablation August 2022 with cardiac tamponade), Coronary Stent, Cystectomy, Gallbladder, Hysterectomy Respiratory: Yes Asthma (Pulmonary hypertension), Sleep Apnea Currently Using CPAP: Yes Cardiac: Yes Atrial Fibrillation (Paroxysmal), Coronary Artery Disease, Heart Attack, Hy pertension Neurological: Yes Neuropathy : No Reproductive Disorders: No Gastrointestinal: Yes Gastroesophageal Reflux Musculoskeletal: No Endocrine: No HEENT: No Cancer: No Physical Exam Vital Signs Vital Signs - First Documented 09/22/22 06:52 Temp 36.9 Pulse 107 Resp 23 B/P (MAP) 160/86 (110) Pulse Ox 96 O2 Delivery Room Air Capillary Refill : Less Than 3 Seconds Height, Weight, BMI Height: 5'5.00" Weight: 182lbs. 0.0oz. 82.209630uq; 29.00 BMI Method: General Appearance: No Apparent Distress, WD/WN HEENT: PERRL/EOMI, Normal ENT Inspection Neck: Normal Inspection; No JVD Respiratory: Lungs Clear, Normal Breath Sounds, No Accessory Muscle Use Cardiovascular: No Edema, No Murmur, Irregularly Irregular, Tachycardia Gastrointestinal: No Distended Extremity: Normal Inspection, No Pedal Edema Neurologic/Psychiatric: Alert, Oriented x3, No Motor/Sensory Deficits, Normal Mood/Affect Skin: Normal Color, Warm/Dry Progress/Results/Core Measures Results/Orders Lab Results Laboratory Tests Test 09/22/22 06:44 Range/Units White Blood Count 10.2 4.3-11.0 10^3/uL Red Blood Count 4.10 3.80-5.11 10^6/uL Hemoglobin 12.2 11.5-16.0 g/dL Hematocrit 38 35-52 % Mean Corpuscular Volume 92 80-99 fL Mean Corpuscular Hemoglobin 30 25-34 pg Mean Corpuscular Hemoglobin Concent 32 32-36 g/dL Red Cell Distribution Width 15.3 H 10.0-14.5 % Platelet Count 411 H 130-400 10^3/uL Mean Platelet Volume 10.3 9.0-12.2 fL Immature Granulocyte % (Auto) 1 % Neutrophils (%) (Auto) 72 42-75 % Lymphocytes (%) (Auto) 16 12-44 % Monocytes (%) (Auto) 9 0-12 % Eosinophils (%) (Auto) 2 0-10 % Basophils (%) (Auto) 1 0-10 % Neutrophils # (Auto) 7.3 1.8-7.8 10^3/uL Lymphocytes # (Auto) 1.6 1.0-4.0 10^3/uL Monocytes # (Auto) 0.9 0.0-1.0 10^3/uL Eosinophils # (Auto) 0.2 0.0-0.3 10^3/uL Basophils # (Auto) 0.1 0.0-0.1 10^3/uL Immature Granulocyte # (Auto) 0.1 0.0-0.1 10^3/uL Sodium Level 139 135-145 MMOL/L Potassium Level 4.2 3.6-5.0 MMOL/L Chloride Level 108 H 98-107 MMOL/L Carbon Dioxide Level 20 L 21-32 MMOL/L Anion Gap 11 5-14 MMOL/L Blood Urea Nitrogen 17 7-18 MG/DL Creatinine 1.22 0.60-1.30 MG/DL Estimat Glomerular Filtration Rate 46 BUN/Creatinine Ratio 14 Glucose Level 119 H 70-105 MG/DL Calcium Level 9.0 8.5-10.1 MG/DL Magnesium Level 1.7 1.6-2.4 MG/DL Thyroid Stimulating Hormone (TSH) 5.29 H 0.35-4.94 UIU/ML Free Thyroxine 0.98 0.70-1.48 NG/DL My Orders Orders - VASU TRAORE MD Ekg Tracing (09/22/22 06:28) Monitor-Rhythm Ecg Trace Only (09/22/22 06:28) Basic Metabolic Panel (09/22/22 06:38) Cbc With Automated Diff (09/22/22 06:38) Magnesium (09/22/22 06:38) Ed Iv/Invasive Line Start (09/22/22 06:38) Apixaban Tablet (Eliquis Tablet) (09/22/22 07:15) Amiodarone Injection (Cordarone Injectio (09/22/22 07:15) Amiodarone For Bolus (Cordarone Bolus) (09/22/22 07:15) Free T4 (Free Thyroxine) (09/22/22 07:13) Thyroid Stimulating Hormone (09/22/22 07:13) Medications Given in ED Vital Signs/I&O 09/22/22 09/22/22 06:52 08:01 Temp 36.9 Pulse 107 99 Resp 23 B/P (MAP) 160/86 (110) 127/65 Pulse Ox 96 O2 Delivery Room Air Blood Pressure Mean: 110 Progress Progress Note : Progress Note Patient was interviewed and examined. Chart was reviewed. Patient brings in an extensive 3 page medical history along with list of medications and allergies and intolerances. She remains in atrial fibrillation with a rate ranging from 80s to 130s. I discussed the case with Dr. Cui initially who is going off call and Dr. Ventura who is coming on-call for cardiology. Plan per Dr. Ventura is to admit on amiodarone drip with a bolus and 2 discuss other medication management. Patient has not had her morning medications. Eliquis 5 mg is being given in the ER to continue her stroke prophylaxis. Patient is alert, oriented, and not experiencing any significant discomfort in the ER. Labs have been reviewed in their entirety including CBC, CMP, magnesium, and thyroid studies. ECG was reviewed by me and demonstrated atrial fibrillation. Contrary to the automated read, there are no paced beats as patient does not have a pacemaker. Case was reviewed with Dr. Irby, hospitalist, who presented to the ER to see the patient. I discussed CODE STATUS with the patient and she elects to remain full code but does not want to remain on life support for a prolonged period of time if prognosis is poor. I provided bridging orders for admission for observation. Initial ECG Impression Date: Sep 22, 2022 Initial ECG Impression Time: 06:33 Initial ECG Rate: 97 Initial ECG Rhythm: A Fib/Flutter Initial ECG Impression: Atrial Fibrillation Comment Atrial fibrillation with no definite ischemic changes. Left bundle branch block, chronic. No axis deviation or abnormal intervals. Departure Communication (Admissions) Time/Spoke to Admitting Phy: 07:20 Dr. Irby Time/Spoke to Consulting Phy: 07:05 Dr. Ventura Impression Primary Impression: Paroxysmal atrial fibrillation with RVR Disposition: ADMITTED INPATIENT Condition: Stable Admissions Decision to Admit Reason: Admit from ER (General) Decision to Admit/Date: Sep 22, 2022 Time/Decision to Admit Time: 07:05 Departure-Patient Inst. Referrals: SARAI MUHAMMAD MD (PCP/Family) Primary Care Physician Copy Copies To 1: ANUPAM CUI MD FAC FAC CCDS Copies To 2: SARAI MUHAMMAD MD, JOSHUA T MD Sep 22, 2022 07:31
[2022-09-22] MEDS ORDERED: AMIODARONE 150 MG/3 ML (CORDARONE) VIAL IV ONE (07:43)
[2022-09-22 07:47] LABS: FREE T4 (FREE THYROXINE) 0.98 NG/DL (0.70-1.48)
--- NOTE | 2022-09-22 07:58 | History & Physical-Hospitalist ---
History of Present Illness HPI/Chief Complaint Patient 77-year-old female past medical history of atrial fibrillation who presented to the hospital due to heart racing. She states it started around 11:00 last night and she just kept hoping that it would get better but when it didn't she decided to seek evaluation. She was admitted in late july for sim ilar and an attempted ablation on 09/06 but had suffered a pericardial perforation and cardiac tamponade at [facility]. She still has significant healing bruising on her chest from that. Source: patient Date Seen 09/22/22 Time Seen by a Provider: 07:30 Attending Physician Sarai Vieyra MD PCP Admitting Physician: Attending Physician: Referring Physician Date of Admission Home Medications & Allergies Home Medications Reviewed patient Home Medication Reconciliation performed by pharmacy medication reconciliations veterinary assistant technician and/or nursing. Patients Allergies have been reviewed. Allergies Allergies Coded Allergies NILDA Inhibitors (Verified Allergy, Unknown, 08/08/22) Beta-Blockers (Beta-Adrenergic Bloc (Verified Allergy, Unknown, 08/08/22) citalopram hydrobromide (Verified Allergy, Unknown, rebound headache and dizzy, 11/05/20) diltiazem (Verified Allergy, Unknown, RASH,ITCHING, 11/28/05) omeprazole magnesium (Verified Allergy, Unknown, severe stomach ache, 11/05/20) propranolol (Verified Allergy, Unknown, DEPRESSION,RASH,HEADACHE, 11/28/05) sucralfate (Verified Allergy, Unknown, RASH,ITCHING, 11/28/05) terfenadine (Verified Allergy, Unknown, SEVERE HIVES/RASH, 11/28/05) amlodipine (Verified Adverse Reaction, Intermediate, 08/10/22) acetaminophen (Verified Adverse Reaction, Unknown, NAUSEA/HEADACHE, 11/28/05) ciprofloxacin (Unverified Adverse Reaction, Unknown, SEVERE STOMACH ACHE AND RELUX, 11/05/20) clindamycin (Unverified Adverse Reaction, Unknown, BURNING RASH ON FACE, 11/05/20) codeine (Verified Adverse Reaction, Unknown, NAUSEA/HEADACHE, 11/28/05) dicloxacillin (Unverified Adverse Reaction, Unknown, HEADACHE/NAUSEA, 11/05/20) digoxin (Verified Adverse Reaction, Unknown, JITTERY, PALPITATIONS, 11/28/05) hydrocodone (Verified Adverse Reaction, Unknown, DIZZINESS, NAUSEA, 11/28/05) medroxyprogesterone (Verified Adverse Reaction, Unknown, WT. GAIN, 11/28/05) omeprazole (Verified Adverse Reaction, Unknown, SEVERE STOMACHACHE/GALARZA, 11/28/05) oxybutynin (Unverified Adverse Reaction, Unknown, EXTREME DRY MOUTH, 11/05/20) propoxyphene (Verified Adverse Reaction, Unknown, GALARZA, N, DIZZY, 11/28/05) verapamil (Verified Adverse Reaction, Unknown, JITERY,PALPITATIONS, 11/28/05) Past Iwitwdo-Jjsstr-Qfnpgv Hx Patient Social History Tobacco Use?: No Use of E-Cig and/or Vaping dev: No Substance use?: No Alcohol Use?: No Immunizations Up To Date Date of Influenza Vaccine: Apr 30, 2015 First/Initial COVID19 Vaccinat: AUG 2020 Second COVID19 Vaccination Lance: SEPTEMBER 2020 Tetanus Booster (TDap): Unknown Date of Pneumonia Vaccine: May 16, 2014 Current Status Communicates: Verbally Primary Language: Estonian Preferred Spoken Language: Estonian Past Medical History Surgeries: Cardiac (Failed cardiac ablation August 2022 with cardiac tamponade), Coronary Stent, Cystectomy, Gallbladder, Hysterectomy Asthma (Pulmonary hypertension), Sleep Apnea Currently Using CPAP: Yes Atrial Fibrillation (Paroxysmal), Coronary Artery Disease, Heart Attack, Hypertension Neuropathy Gastroesophageal Reflux Family Medical History Reviewed Nursing Family Hx No Pertinent Family Hx Review of Systems Constitutional: see HPI Physical Exam Physical Exam Vital Signs Vital Signs - First Documented 09/22/22 06:52 Temp 36.9 Pulse 107 Resp 23 B/P (MAP) 160/86 (110) Pulse Ox 96 O2 Delivery Room Air Capillary Refill : Less Than 3 Seconds Height, Weight, BMI Height: 5'5.00" Weight: 182lbs. 0.0oz. 82.825571pz; 29.00 BMI Method: General Appearance: No Apparent Distress, WD/WN Respiratory: Lungs Clear, No Accessory Muscle Use, No Respiratory Distress Cardiovascular: Irregularly Irregular, Tachycardia Gastrointestinal: Normal Bowel Sounds, Non Tender, Soft Neurologic/Psychiatric: Alert, Oriented x3, Normal Mood/Affect Results Results/Procedures Labs Laboratory Tests 09/22/22 06:44 Patient resulted labs reviewed. Imaging: Reviewed Imaging Report Assessment/Plan Admission Diagnosis atrial fib Admission Status: Inpatient Order (span 2 midnights) Reason for Inpatient Admission: see below Assessment and Plan atrial fib with RVR HR in the 110s at rest Amiodarone gtt due to multiple allergies Cardiology consulted, appreciate their assistance with complex patient Telemetry Beatricequalbaro HTN Continue home meds once med rec done Asthma pHTN Continue Home inhalers Has historically avoid beta blockers due to her asthma but will consider trying coreg pending cardiology recs DVT ppx: Eliquis Diagnosis/Problems Diagnosis/Problems (1) Pulmonary hypertension (2) Asthma (3) Paroxysmal atrial fibrillation with RVR Status: Acute (4) Hypertension Status: Acute Copy Copies To 1: SARAI VIEYRA MD, KATELYN M MD Sep 22, 2022 07:58
[2022-09-22] MEDS ORDERED: ONDANSETRON 4 MG/2 ML (SDV) Z0FRAN IV PRN (09:00)
[2022-09-22] MEDS ORDERED: AMIODARONE INJECTION 450 MG in Ns(excel) 250 ML IV SCH (09:00)
[2022-09-22] MEDS ORDERED: CATHETER FLUSH 10 ML SYR IV PRN (09:00)
--- NOTE | 2022-09-22 09:18 | Tele-ICU Progress Note ---
Subjective Date Seen by a Provider: Sep 22, 2022 Time Seen by a Provider: 09:13 Subjective/Events-last exam (Tele-ICU Physician , consultation) Available chart/ vitals / labs / Images reviewed H&P is from ER notes Patient's information available about PMH, allergy reviewed in EMR. ROS as per chart and RN report Video assessment done using teleICU camera, rest of exam as per RN Discussed with RN. She is a 77-year-old female with past medical history of paroxysmal atrial fibrillation, asthma, hypertension, coronary artery disease apparently diagnosed with with paroxysmal atrial fibrillation in July of 2022 at which time it was converted with IV amiodarone and subsequently referred for the ablation in [place]. She underwent the procedure but during the procedure she developed reportedly cardiac tamponade hence the procedure was aborted. She is allergic to several medications including beta-blockers and calcium channel blockers hence those medications were not prescribed but she is supposed to be on amiodarone. Now she is admitted with chest discomfort, palpitations to the emergency room and she is found to have a atrial fibrillation with rapid ventricular rate on and off. Hence she is admitted to the intensive care unit and started on amiodarone drip per cardiology service. It is not clear how severe is her COPD/asthma but she is not on any home oxygen. She does apparently follows with a product marketing specialist. There is no telemetry ICU consult but I am seeing the patient for ICU protocol. Impression 1. Paroxysmal atrial fibrillation with intermittent rapid ventricular rate. 2. Asthma/COPD clinically stable 3. History of coronary artery disease 4. Pulmonary arterial hypertension chronic 5. GERD. Recommendations 1. A-fib per cardiology service 2. We will resume home medications for her asthma 3. We will also resume sildenafil 20 mg p.o. 3 times daily. 4. Eliquis 5 mg p.o. twice daily for stroke prophylaxis. Coordination of care with primary care physician and bedside consultants. Critical care time spent on this patient is 20 minutes. Approximately. Sepsis Event Evaluation Height, Weight, BMI Height: 5'5.00" Weight: 182lbs. 0.0oz. 82.709768em; 29.00 BMI Method: Exam Exam Patient acknowledged, consented, and participated in this virtual visit which was conducted using real time audio/video Vital Signs Date Time Temp Pulse Resp B/P (MAP) Pulse Ox O2 Delivery O2 Flow Rate FiO2 3/10/23 09:00 104 24 123/79 (94) 95 Room Air 09/22/22 08:53 106 09/22/22 08:47 36.6 Room Air 09/22/22 08:45 118 8 150/81 (104) 97 Room Air 09/22/22 08:15 92 18 127/65 94 09/22/22 08:01 99 127/65 09/22/22 06:52 36.9 107 23 160/86 (110) 96 Room Air Height & Weight Height: 5'5.00" Weight: 182lbs. 0.0oz. 82.917128lp; 29.00 BMI Method: General Appearance: No Apparent Distress, WD/WN HEENT: PERRL/EOMI, Normal ENT Inspection Neck: Normal Inspection; No JVD Respiratory: Lungs Clear, Normal Breath Sounds, No Accessory Muscle Use Cardiovascular: No Edema, No Murmur, Irregularly Irregular, Tachycardia Capillary Refill: Less Than 3 Seconds Extremity: Normal Inspection, No Pedal Edema Neurologic/Psychiatric: Alert, Oriented x3, No Motor/Sensory Deficits, Normal Mood/Affect Skin: Normal Color, Warm/Dry Other comments PE PER RN Results Lab Laboratory Tests 09/22/22 06:44 Assessment/Plan Assessment/Plan ABOVE Critical Care: Critically Ill Patient Time spent with patient (mins): 20 LACEY FRENCH MD Sep 22, 2022 09:18
--- NOTE | 2022-09-22 10:23 | Tele-ICU Consult ---
History of Present Illness History of Present Illness Date Seen by Provider: Sep 22, 2022 Time Seen by Provider: 09:45 Date of Admission 09/22/22 History of Present Illness Ms. Brown is a 77 year old female with a PMHx of paroxysmal atrial fibrillation, asthma, LAURA with CPAP use, CAD, HTN, GERD, heart failure, and pulmonary arterial hypertension who presented to the [facility] ED in atrial fibrillation with RVR. Pt states around 2330 on 09/21 she began feeling irregular heart beats. Pt states at the time of onset she was getting ready for bed. Pt denies recent changes in diet, activity, or medications. Pt states she takes her medications regularly. Pt states she rested in bed to try to remedy the irregular HR. Pt reports associated symptoms of weakness and chest tightness near the base of her neck. Remaining ROS negative. After a restless night with no improvement of symptoms, pt drove herself to the ED. Pt was found to be in a fib with RVR. Amiodarone drip has been initiated and the patient has been admitted to the ICU with Cardiology, Medicine, and Tele-ICU following. Allergies and Home Medications Allergies Coded Allergies: NILDA Inhibitors (Verified Allergy, Unknown, 08/08/22) Beta-Blockers (Beta-Adrenergic Bloc (Verified Allergy, Unknown, 08/08/22) citalopram hydrobromide (Verified Allergy, Unknown, rebound headache and dizzy, 11/05/20) diltiazem (Verified Allergy, Unknown, RASH,ITCHING, 11/28/05) omeprazole magnesium (Verified Allergy, Unknown, severe stomach ache, 11/05/20) propranolol (Verified Allergy, Unknown, DEPRESSION,RASH,HEADACHE, 11/28/05) sucralfate (Verified Allergy, Unknown, RASH,ITCHING, 11/28/05) terfenadine (Verified Allergy, Unknown, SEVERE HIVES/RASH, 11/28/05) amlodipine (Verified Adverse Reaction, Intermediate, 08/10/22) acetaminophen (Verified Adverse Reaction, Unknown, NAUSEA/HEADACHE, 11/28/05) ciprofloxacin (Unverified Adverse Reaction, Unknown, SEVERE STOMACH ACHE AND RELUX, 11/05/20) clindamycin (Unverified Adverse Reaction, Unknown, BURNING RASH ON FACE, 11/05/20) codeine (Verified Adverse Reaction, Unknown, NAUSEA/HEADACHE, 11/28/05) dicloxacillin (Unverified Adverse Reaction, Unknown, HEADACHE/NAUSEA, 11/05) digoxin (Verified Adverse Reaction, Unknown, JITTERY, PALPITATIONS, 11/28/05) hydrocodone (Verified Adverse Reaction, Unknown, DIZZINESS, NAUSEA, 11/28/05) medroxyprogesterone (Verified Adverse Reaction, Unknown, WT. GAIN, 11/28/05) omeprazole (Verified Adverse Reaction, Unknown, SEVERE STOMACHACHE/GALARZA, 11/28/05) oxybutynin (Unverified Adverse Reaction, Unknown, EXTREME DRY MOUTH, 11/05/20) propoxyphene (Verified Adverse Reaction, Unknown, GALARZA, N, DIZZY, 11/28/05) verapamil (Verified Adverse Reaction, Unknown, JITERY,PALPITATIONS, 11/28/05) Home Medications Acetaminophen 500 Mg Tablet, 1,000 MG PO Q8H PRN for PAIN-MILD (1-4), (Reported) Amiodarone HCl 200 Mg Tablet, 400 MG PO BID Prescribed by: SHENA SMITH on 08/10/22 1023 Apixaban 5 Mg Tablet, 5 MG PO BID Prescribed by: SHENA SMITH on 08/10/22 1023 Aspirin 81 Mg Tablet.dr, 81 MG PO HS, (Reported) Atorvastatin Calcium 40 Mg Tablet, 40 MG PO HS, (Reported) Budesonide/Formoterol Fumarate 160 Mcg-4.5 Mcg/Actuation Hfa.aer.ad, 2 PUFF INH BID, (Reported) Clonidine HCl 0.1 Mg Tablet, 0.1 MG PO 0800,1400,1999, (Reported) Ergocalciferol (Vitamin D2) 1,250 Mcg Capsule, 1,250 MCG PO SUNDAY, (Reported) Furosemide 40 Mg Tablet, 40 MG PO Q48H, (Reported) Latanoprost 0.005 % Drops, 1 DROP OU HS, (Reported) Montelukast Sodium 10 Mg Tablet, 10 MG PO HS, (Reported) Multivit-Min/FA/Lycopene/Lut 0.4 Mg-300 Mcg-250 Mcg Tablet, 1 EACH PO DAILY, (Reported) Pantoprazole Sodium 40 Mg Tablet.dr, 40 MG PO DAILY PRN for HEARTBURN, (Reported) Potassium Chloride 10 Meq Tab.er.prt, 10 MEQ PO Q48H, (Reported) Propylene Glycol/Peg 400 0.3 %-0.4 % Drops, 1-2 DROPS OU UD PRN for DRY EYES, (Reported) Sildenafil Citrate 20 Mg Tablet, 20 MG PO 0800,1400,2000, (Reported) Trazodone HCl 50 Mg Tablet, 50 MG PO HS, (Reported) Ubidecarenone 30 Mg Capsule, 30 MG PO DAILY, (Reported) Past Medical/Social/Family Hx Patient Social History Tobacco Use?: No Use of E-Cig and/or Vaping dev: No Substance use?: No Alcohol Use?: No Pt stated abuse/neglect: No Immunizations Up To Date Influenza Vaccine Up-to-Date: Yes; Up-to-Date First/Initial COVID19 Vaccinat: AUG 2020 Second COVID19 Vaccination Lance: SEPTEMBER 2020 Tetanus Booster (TDap): Unknown Date of Pneumonia Vaccine: May 16, 2014 Current Status status: No Advance Directives: No Communicates: Verbally Primary Language: Croatian Preferred Spoken Language: Croatian Is interpretation needed?: No Sensory deficits: Vision impairment Implanted or Applied Medical D: CPAP, Stents Past Medical History Paroxysmal atrial fibrillation diagnosed in 07/2022, CAD, pulmonary arterial hypertension, asthma, LAURA with CPAP use, GERD, heart failure, prediabetes, HTN Family Medical History Family Hx: Mother: CAD Father: heart disease Review of Systems Constitutional: weakness EENTM: no symptoms reported; No vision loss Respiratory: cough (dry cough), dyspnea on exertion (pt reports this is chronic secondary to asthma) Cardiovascular: palpitations, other (chest tightness ) Gastrointestinal: no symptoms reported; No abdominal pain, No constipation, No diarrhea, No vomiting Genitourinary: no symptoms reported : No Musculoskeletal: No no symptoms reported Skin: No no symptoms reported, No rash Psychiatric/Neurological: Denies Headache; Weakness (generalized) All Other Systems Reviewed Negative Unless Noted: Yes Focused Exam Height, Weight, BMI Height: 5'5.00" Weight: 182lbs. 0.0oz. 82.944710zp; 29.12 BMI Method: Exam Exam Patient acknowledged, consented, and participated in this virtual visit which was conducted using real time audio/video Vital Signs Date Time Temp Pulse Resp B/P (MAP) Pulse Ox O2 Delivery O2 Flow Rate FiO2 09/22/22 10:00 87 30 111/75 (87) 96 Room Air 3/10/23 09:00 104 24 123/79 (94) 95 Room Air 09/22/22 08:53 106 09/22/22 08:47 36.6 Room Air 09/22/22 08:45 118 8 150/81 (104) 97 Room Air 09/22/22 08:45 95 Room Air 09/22/22 08:15 92 18 127/65 94 09/22/22 08:01 99 127/65 09/22/22 06:52 36.9 107 23 160/86 (110) 96 Room Air Height & Weight Height: 5'5.00" Weight: 182lbs. 0.0oz. 82.313870ps; 29.12 BMI Method: General Appearance: No Apparent Distress, WD/WN HEENT: PERRL/EOMI, Normal ENT Inspection, Pharynx Normal Neck: Normal Inspection; No JVD Respiratory: Lungs Clear, Normal Breath Sounds, No Accessory Muscle Use Cardiovascular: No Edema, No Murmur, Irregularly Irregular, Tachycardia Capillary Refill: Less Than 3 Seconds Gastrointestinal: normal bowel sounds, non tender, soft Extremity: Normal Inspection, No Pedal Edema Neurologic/Psychiatric: Alert, Oriented x3, No Motor/Sensory Deficits, Normal Mood/Affect Skin: Normal Color, Warm/Dry Results Lab Laboratory Tests 09/22/22 06:44 Assessment/Plan Assessment/Plan 1. Paroxysmal atrial fibrillation -Amiodarone drip 450mg, 259mls @ 33mls/hr -Eliquis 5mg PO BID -Appreciate Cardiology 2. Asthma -Resume home medications -AM BMP; hyperchloremia and low bicarb likely chronic secondary to asthma 3. CAD -Resume home medications: atorvastatin 40mg, ASA 81mg 4. Pulmonary arterial hypertension -Resume home medication: sildenafil 20mg PO 0800, 1400, 1999 5. GERD -Protonix 40mg PO qd PER [facility] Sep 22, 2022 10:23
[2022-09-22] MEDS ORDERED: FUROSEMIDE 40 MG/4 ML INJ (LASIX) IVP NR (12:00)
[2022-09-22] MEDS: CATHETER FLUSH 10 ML SYR IV SCH ×2 (12:31→22:55)
--- NOTE | 2022-09-22 12:49 | CONSULTATION REPORT ---
DATE OF SERVICE: 09/22/2022 CHIEF COMPLAINT: Palpitations. HISTORY OF PRESENT ILLNESS: The patient is a 77-year-old female with a history of atrial fibrillation, on Eliquis; asthma; pulmonary hypertension; glaucoma; CAD, status post PCI to the RCA in 2007; obstructive sleep apnea and hypertension, who presents for evaluation of palpitations. The patient states that she was diagnosed with atrial fibrillation initially back in the . At that point in time, she found that she was ALLERGIC TO CARDIZEM, which precipitates a rash. In addition, she comments that she recently presented to our facility for evaluation of palpitations and was found to have atrial fibrillation with rapid ventricular response. She was initiated on amiodarone drip and spontaneously converted to normal sinus rhythm in that setting. In addition, she was referred to Dr. Cline in [place] for EP evaluation and ultimately underwent an AFib ablation. This was performed on 09/06/2022. The procedure was aborted secondary to perforation. Loop recorder was implanted and she has been instructed to return for a followup visit in the first week of October. Since her last hospitalization, she has been in normal sinus rhythm, but notes the recurrence of palpitations with associated chest tightness to the left clavicle. Heart rates were as high as 130s. Heart rates currently are in the 190s-110s. In the emergency room, she received amiodarone bolus plus amiodarone drip as well as Eliquis 5 mg p.o. x1. Currently, she states that she is asymptomatic, but does note some palpitations, but otherwise no significant chest discomfort is present at this point in time. She denies shortness of breath, presyncope, syncope. She does note some fatigue. She denies PND, orthopnea, presyncope, syncope. REVIEW OF SYSTEMS: All systems were reviewed and are negative except for what has been described in HPI. PAST MEDICAL HISTORY: Asthma, glaucoma, CAD, status post PCI to the RCA back in 2007, history of atrial fibrillation dating back to , obstructive sleep apnea, hypertension. MEDICATIONS: Currently include amiodarone 400 mg p.o. b.i.d., Eliquis 5 mg p.o. b.i.d., aspirin 81 mg p.o. daily, budesonide/formoterol 1 puff inhaler b.i.d., vitamin D2, Lasix 40 mg p.o. q. 48 hours, Xalatan, Singulair 10 mg p.o. daily, Protonix 40 mg p.o. p.r.n., sildenafil 20 mg p.o. t.i.d., trazodone 50, CoQ10, clonidine 0.1 mg p.o. t.i.d. FAMILY HISTORY: Reviewed and is noncontributory. SOCIAL HISTORY: No tobacco, drug or alcohol use is noted. PHYSICAL EXAMINATION: VITAL SIGNS: T-max 36.9, heart rates 90s-100s, respiratory rate 23, blood pressure 120-160/60-80, satting greater than 96% on room air. GENERAL: She is in no acute distress. She is resting comfortably in the bed. NECK: Soft and supple. No cervical lymphadenopathy or thyromegaly. CHEST: Lungs demonstrate rales in the bilateral bases; otherwise, no wheezing or rhonchi appreciated. CARDIOVASCULAR: Heart is irregularly irregular, not tachycardic. No murmurs, gallops or rubs were appreciated. ABDOMEN: Positive bowel sounds, soft, nontender, nondistended. No hepatosplenomegaly. EXTREMITIES: Warm and well perfused. She has no cyanosis, clubbing or edema. SKIN: No lesions, rashes or ecchymosis noted. LABORATORY DATA AND IMAGING: Significant for white blood cell count of 10.2, hematocrit of 38, platelets of 411. Sodium 139, potassium 4.2, chloride 108, bicarbonate 20, BUN 17, creatinine 1.2. TSH is 5.3, free T4 of 0.98. Last cath back in 2015 demonstrated 50% diagonal 1 and OM2 lesions, patent drug-eluting stent in the RCA. MPI from 07/2022 demonstrates no ischemia. Transthoracic echocardiogram from 07/2022 demonstrates an EF of 60%, mild to moderate AR, mild AI. EKG demonstrates atrial fibrillation with heart rates of 97 beats per minute. Left bundle branch block is also noted. ASSESSMENT AND PLAN: The patient is a 77-year-old female with the above-mentioned medical problems who presents for evaluation of palpitations with associated chest discomfort. 1. Palpitations associated with her atrial fibrillation with rapid ventricular response with heart rates up into the 130s at home. Since she has been here and after administration of amiodarone and Eliquis, her heart rates are now down into the 90s-110s. She states that she no longer has any chest discomfort. No other concerns at this point in time. For now, we will continue with the amiodarone drip at 1 and transition to 0.5 based on the usual protocol. I did have a discussion with her about optimizing her heart rate control. 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 At this point in time, we will start her on carvedilol, which has very little beta effect and more alpha effect, but does help with heart rate reduction. We will start on Coreg 3.125 mg p.o. b.i.d. and continue to monitor for any worsening symptoms. Continue her amiodarone and transition with amiodarone 400 mg p.o. b.i.d. thereafter. 2. Bibasilar rales. The patient is on Lasix 40 mg p.o. q.o.d. We will go ahead and give her Lasix 40 mg IV x1 to help with removal of fluid. She does note some mild abdominal distention as well. 3. Hypertension. Blood pressures are stable in 120s to 160s. We will simply continue to monitor at this point in time. 4. Coronary artery disease. Continue with aspirin and Eliquis. DISPOSITION: We will continue to follow along, like to target heart rates while she is up and walking less than 115 and then consider discharge at that point in time. We did have a long discussion about considering DC cardioversion. It is my attention that she has been dealing with this AFib for some time and I am concerned that we could cardiovert her and she would comfort back into atrial fibrillation in a short period of time thereafter. So my initial preference is to control the heart rates chemically. Thank you for allowing me to participate in her care. Job ID: [id number] DocumentID: [id number] Dictated Date: 09/22/2022 09:38:32 Supervisor Paper Machine Date: 09/22/2022 12:13:00 Dictated By: AUSTIN WATTS MD MTDD
[2022-09-22] MEDS ORDERED: LOSA25TA41 PO (14:57)
[2022-09-22] MEDS ORDERED: ESTR1PAT72 TD (14:57)
[2022-09-22] MEDS ORDERED: PANT40TA2 PO (14:57)
[2022-09-22] MEDS ORDERED: AMIO200T65 PO (14:57)
[2022-09-22] MEDS ORDERED: APIX5TAB PO (14:57)
[2022-09-22] MEDS ORDERED: AZEL50GE5 TP (14:57)
[2022-09-22] MEDS ORDERED: NON-FORMULARY MEDICATION 1 EA EA (Sildenafil Citrate (Sildenafil) 20 MG) PO SCH (20:00)
[2022-09-22] MEDS: SILDENAFIL 20 MG (REVATIO) TAB PO SCH (20:53)
[2022-09-22] MEDS: APIXABAN 5 MG (ELIQUIS) TABLET PO SCH (20:53)
[2022-09-22] MEDS: MONTELUKAST 10 MG (SINGULAIR) TAB PO SCH (20:53)
[2022-09-22] MEDS: LATANOPROST 0.005% (XALATAN) OPHTH SOLN 2.5 ML OU SCH (20:53)
[2022-09-22] MEDS: ASPIRIN E.C. 81 MG (ECOTRIN) TAB PO SCH (20:53)
[2022-09-22] MEDS: traZODone 50 MG (DESYREL) TAB PO SCH (20:53)
[2022-09-22] MEDS ORDERED: NON-FORMULARY MEDICATION 1 EA EA (Budesonide/Formoterol Fumarate (Budesonide-Formoterol 16 INH SCH (21:00)
[2022-09-22] MEDS: RT--FLUTICASONE/SALMETEROL 232-14 (AIRDUO RespiCLICK) IH SCH (21:16)
[2022-09-23 06:00] LABS: BASOPHILS # (AUTO) 0.1 10^3/uL (0.0-0.1); BASOPHILS % (AUTO) 2 % (0-10); EOSINOPHILS # (AUTO) 0.2 10^3/uL (0.0-0.3); EOSINOPHILS % (AUTO) 3 % (0-10); HEMATOCRIT 37 % (35-52); LYMPHOCYTES # (AUTO) 1.3 10^3/uL (1.0-4.0); LYMPHOCYTES % (AUTO) 18 % (12-44); MEAN CORPUSCULAR HEMOGLOBIN 30 pg (25-34); MEAN CORPUSCULAR HGB CONC 33 g/dL (32-36); MEAN CORPUSCULAR VOLUME 92 fL (80-99); MEAN PLATELET VOLUME 10.8 fL (9.0-12.2); MONOCYTES # (AUTO) 0.7 10^3/uL (0.0-1.0); MONOCYTES % (AUTO) 9 % (0-12); NEUTROPHILS # (AUTO) 5.3 10^3/uL (1.8-7.8); NEUTROPHILS % (AUTO) 69 % (42-75); PLATELET COUNT 370 10^3/uL (130-400); WHITE BLOOD COUNT 7.6 10^3/uL (4.3-11.0)
[2022-09-23 06:04] LABS: POTASSIUM 4.2 MMOL/L (3.6-5.0)
[2022-09-23 06:05] LABS: CALCIUM 8.7 MG/DL (8.5-10.1)
[2022-09-23 06:10] LABS: CREATININE SERUM 0.88 MG/DL (0.60-1.30)
[2022-09-23 06:12] LABS: MAGNESIUM 1.8 MG/DL (1.6-2.4)
[2022-09-23] MEDS: CATHETER FLUSH 10 ML SYR IV SCH ×3 (06:49→22:31)
[2022-09-23] MEDS: RT--FLUTICASONE/SALMETEROL 232-14 (AIRDUO RespiCLICK) IH SCH ×2 (07:17→19:28)
[2022-09-23] MEDS ORDERED: FUROSEMIDE 40 MG/4 ML INJ (LASIX) IVP SCH (09:00)
[2022-09-23] MEDS ORDERED: VITAMIN D2 1.25 MG (50,000 UNITS) CAP PO NR (09:00)
[2022-09-23] MEDS: APIXABAN 5 MG (ELIQUIS) TABLET PO SCH ×2 (09:01→20:22)
[2022-09-23] MEDS: SILDENAFIL 20 MG (REVATIO) TAB PO SCH ×3 (09:01→20:22)
[2022-09-23] MEDS: AMIODARONE 200 MG (CORDARONE) TAB PO SCH ×3 (09:01→20:22)
--- NOTE | 2022-09-23 09:14 | Tele-ICU Progress Note ---
Subjective Date Seen by a Provider: Sep 23, 2022 Subjective/Events-last exam This virtual visit was conducted using real time audio/video. Thank you for asking us to see this patient for ctritical care services due to afib/RVR on a background of COPD/ asthma/LAURA and severe pulmonary htn. PE: comfortable. VSS. O2 sat 95% on RA. HEENT: No obvious masses, adenopathy or JVD. Chest: diminished on auscultation. CV: RRR S1 S2 No murmur or added sounds. Abd: Non-tender. Bowel sounds Y. : Unremarkable. Jones N. PRODUCTION HELPER/psychiatric: Grossly intact. No obvious focal findings. Extremities: No edema. Capillary refill < 3 seconds. Skin: unremarkable. Results: CXR: hyperinflated, clear. Available chart/ vitals / labs / images reviewed. Video assessment done using teleICU camera, rest of exam as per RN. A/P: Respiratory insufficiency: Continue present management with airduo, sildenafil, singulair Monitor for increasing oxygenation needs and/or need for intubation. Critical Care: critically ill patient. Cont. amiod., coreg, lasix, eliquis, ASA. Discussed with RN Susie. Asked RN to reach out to eICU if any questions or dania rns later. Time spent with patient/coordination of care with other health professionals (mins): 15 Sepsis Event Evaluation Height, Weight, BMI Height: 5'5.00" Weight: 182lbs. 0.0oz. 82.065326bv; 29.12 BMI Method: Exam Exam Patient acknowledged, consented, and participated in this virtual visit which was conducted using real time audio/video Vital Signs Date Time Temp Pulse Resp B/P (MAP) Pulse Ox O2 Delivery O2 Flow Rate FiO2 09/23/22 08:00 91 11 133/75 (94) 94 Room Air 09/23/22 07:17 9 Room Air 09/23/22 07:00 85 09/23/22 07:00 74 8 116/68 (78) 94 Room Air 09/23/22 06:00 87 12 114/68 (83) 94 Room Air 09/23/22 05:00 73 29 126/79 (95) 92 Room Air 09/23/22 04:14 36.6 09/23/22 04:00 97 Room Air 09/23/22 04:00 80 28 107/67 (80) 92 Room Air 09/23/22 03:00 80 35 122/75 (91) 94 Room Air 09/23/22 02:00 85 31 133/86 (102) 94 Room Air 09/23/22 01:00 80 09/23/22 01:00 80 20 123/77 (92) 93 Room Air 09/23/22 00:00 90 33 125/83 (97) 94 Room Air 09/22/22 23:59 96 Room Air 09/22/22 23:00 82 19 111/56 (74) 92 Room Air 09/22/22 22:00 93 17 107/65 (79) 93 Room Air 09/22/22 21:16 95 Room Air 09/22/22 21:00 122 17 130/79 (96) 94 Room Air 09/22/22 20:00 94 23 128/76 (93) 95 Room Air 09/22/22 20:00 96 Room Air 09/22/22 19:28 36.3 09/22/22 19:00 91 09/22/22 19:00 93 21 129/77 (94) 94 Room Air 09/22/22 18:00 95 24 129/92 (104) 95 09/22/22 17:00 93 18 137/89 (105) 94 Room Air 09/22/22 16:00 103 13 124/71 (88) 95 Room Air 09/22/22 15:42 36.3 09/22/22 15:37 95 Room Air 09/22/22 15:00 99 19 125/88 (98) 93 Room Air 09/22/22 14:00 84 18 134/91 (104) 94 Room Air 09/22/22 13:00 112 31 138/95 (100) 96 Room Air 09/22/22 12:47 94 Room Air 09/22/22 12:41 78 09/22/22 12:00 83 17 104/60 (75) 94 Room Air 09/22/22 11:00 93 19 119/76 (90) 96 Room Air 09/22/22 10:00 87 30 111/75 (87) 96 Room Air I & O 09/23/22 07:00 Intake Total 1991 ml Balance 1991 ml Height & Weight Height: 5'5.00" Weight: 182lbs. 0.0oz. 82.229750fe; 29.12 BMI Method: General Appearance: No Apparent Distress, WD/WN HEENT: PERRL/EOMI, Normal ENT Inspection Neck: Normal Inspection; No JVD Respiratory: Lungs Clear, No Accessory Muscle Use, No Respiratory Distress Cardiovascular: Irregularly Irregular, Tachycardia Capillary Refill: Less Than 3 Seconds Gastrointestinal: normal bowel sounds, non tender, soft Extremity: Normal Inspection, No Pedal Edema Neurologic/Psychiatric: Alert, Oriented x3, Normal Mood/Affect Skin: Normal Color, Warm/Dry Results Lab Laboratory Tests 09/22/22 06:44 09/23/22 05:17 Assessment/Plan Assessment/Plan See free text. Critical Care: Critically Ill Patient CARL NINA MD Sep 23, 2022 09:14
[2022-09-23] MEDS ORDERED: FUROSEMIDE 40 MG (LASIX) TAB PO SCH (09:45)
--- NOTE | 2022-09-23 09:46 | Cardiology Progress Note ---
Subjective Date Seen by Provider: Sep 23, 2022 Time Seen by Provider: 08:15 Subjective/Events-last exam No acute issues overnight. Still in AF this AM but HRs in 80-90s. Pt states she feels much better. Able to walk around room without symptoms. Objective-Cardiology Exam Last Set of Vital Signs Vital Signs 09/23/22 09/23/22 04:14 09:00 Temp 36.6 Pulse 84 Resp 22 B/P (MAP) 124/72 (91) Pulse Ox 92 O2 Delivery Room Air I&O Intake and Output 09/23/22 00:00 Intake Total 1642 ml Balance 1642 ml Intake Oral 1280 ml IV Total 362 ml # Voids 8 Daily Weight Change No Other physical findings GENERAL: She is in no acute distress. She is resting comfortably in the bed. NECK: Soft and supple. No cervical lymphadenopathy or thyromegaly. CHEST: Lungs demonstrate rales in the bilateral bases; otherwise, no wheezing or rhonchi appreciated. CARDIOVASCULAR: Heart is irregularly irregular, not tachycardic. No murmurs, gallops or rubs were appreciated. ABDOMEN: Positive bowel sounds, soft, nontender, nondistended. No hepatosplenomegaly. EXTREMITIES: Warm and well perfused. She has no cyanosis, clubbing or edema. SKIN: No lesions, rashes or ecchymosis noted. Results Lab Laboratory Tests 09/23/22 05:17 A/P-Cardiology Assessment/Plan ASSESSMENT AND PLAN: The patient is a 77-year-old female with the above-mentioned medical problems who presents for evaluation of palpitations with associated chest discomfort. ## Palpitations: secondary to AF with RVR to 130s at home. Now improved to 80- 90s with Amoidarone gtt and initiation of coreg. Allergic to cardizem. - cont coreg 3.125mg po BID - amiodarone gtt off - start amiodarone 400mg po TID now - cont Eliquis ## Bibasilar rales. Improved this AM after Lasix IV x 1 given yesterday - restart home lasix 40mg po QOD ## Hypertension. Blood pressures are stable in 100-130s overnight. - cont to monitor - ensure no hypotension with amiodarone po ## Coronary artery disease. - Continue with aspirin, statin and Eliquis. ## DISPO: - up and walking in halls TID today - if pt can tolerate switch to po and maintain HRs less than 115 with ambulation, look to discharge with a plan for follow up with EP doc in less than one month - coreg can also be taken as a bailout at home-if she has tachycardia, take an extra coreg to try and help control HRs - lastly, we did have a long discussion about considering DC cardioversion. It is my belief that she has been dealing with this paroxysmal AFib for some time and I am concerned that she has a high likelihood of converting back to AF after cardioversion. So, my preference is to control the heart rates pharmacologically for now. AUSTIN WATTS MD Sep 23, 2022 09:46
--- NOTE | 2022-09-23 11:27 | Progress Note - Hospitalist ---
Subjective HPI/CC On Admission Date Seen by Provider: Sep 23, 2022 Patient 77-year-old female past medical history of atrial fibrillation who presented to the hospital due to heart racing. She states it started around 11:00 last night and she just kept hoping that it would get better but when it didn't she decided to seek evaluation. She was admitted in late july for similar and an attempted ablation on 09/06 but had suffered a pericardial perforation and cardiac tamponade at [facility]. She still has significant healing bruising on her chest from that. Subjective/Events-last exam Pt reports feeling much better today. Heart rate improved. Discussed plan to transition to oral amiodarone and if she does well and feels well plan to DC tomorrow. Objective Exam Vital Signs Vital Signs Date Time Temp Pulse Resp B/P (MAP) Pulse Ox O2 Delivery O2 Flow Rate FiO2 09/23/22 10:00 90 106/77 (87) 96 Room Air 09/23/22 09:00 22 09/23/22 08:30 36.2 Capillary Refill : Less Than 3 Seconds General Appearance: No Apparent Distress, WD/WN Respiratory: Lungs Clear, No Respiratory Distress Cardiovascular: No Murmur, Irregularly Irregular Gastrointestinal: Normal Bowel Sounds, Soft Neurologic/Psychiatric: Alert, Oriented x3 Results/Procedures Lab Laboratory Tests 09/23/22 05:17 Patient resulted labs reviewed. Imaging: Reviewed Imaging Report Assessment/Plan Assessment and Plan Assess & Plan/Chief Complaint atrial fib with RVR HR in the 110s at rest Transition to oral amiodarone Cardiology consulted, appreciate their assistance with complex patient Telemetry Eliquis Hopefully home tomorrow if does well HTN Continue home meds as appropriate Asthma pHTN Continue home inhalers Has historically avoid beta blockers due to her asthma but will consider trying coreg pending cardiology recs DVT ppx: Eliquis Critical Care Critically Ill Patient Diagnosis/Problems Diagnosis/Problems (1) Pulmonary hypertension (2) Asthma (3) Paroxysmal atrial fibrillation with RVR Status: Acute (4) Hypertension Status: Acute BECKI SOLOMON MD Sep 23, 2022 11:27
--- NOTE | 2022-09-23 14:42 | Physical Therapy Evaluation ---
PT Evaluation-General Medical Diagnosis Admission Date Sep 22, 2022 at 09:08 Medical Diagnosis: a-fib Onset Date: Sep 22, 2022 Therapy Diagnosis Therapy Diagnosis: weakness Height/Weight Height (Feet): 5 Height (Inches): 5.00 Weight (Pounds): 182 Weight (Ounces): 0.0 Precautions Precautions/Isolations: Fall Prevention, Standard Precautions Weight Bear Status Right Lower Extremity: Right Full Weight Bearing Left Lower Extremity: Left Full Weight Bearing Referral Physician: Mahamed Reason for Referral: Evaluation/Treatment Medical History Pertinent Medical History: Atrial Fib, CAD, GERD, HTN, NH, Neuropathy Additional Medical History coronary stent, asthma, pulmonary HTN, sleep apnea. Failed cardiac ablation with cardiac tamponade in Aug 2022 Current History Presented to ER with racing heart Reviewed History: Yes Social History Home: [facility] Current Living Status: Alone Entry Into Home: Stairs With Railing PT Steps Inside Home: 12 Prior Prior Level of Function SCALE: Activities may be completed with or without assistive devices. 8-Ybzjbccjkz-wcwtupn completes the activity by him/herself with no assistance from a helper. 5-Set-up or Clean-up Assistance-helper sets up or cleans up; patient completes activity. Baldwin assists only prior to or following the activity. 4-Supervision or Touching Assistance-helper provides verbal cues and/or touching/steadying and/or contact guard assistance as patient completes activ ity. Assistance may be provided throughout the activity or intermittently. 3-Partial/Moderate Assistance-helper does LESS THAN HALF the effort. Baldwin lifts, holds or supports trunk or limbs, but provides less than half the effort. 2-Substantial/Maximal Assistance-helper does MORE THAN HALF the effort. Baldwin lifts or holds trunk or limbs and provides more than half the effort. 9-Dfihtxtqh-qivbbt does ALL the effort. Patient does none of the effort to complete the activity. Or, the assistance of 2 or more helpers is required for the patient to complete the activity. If activity was not attempted, code reason: 7-Patient Refused. 9-Not Applicable-not attempted and the patient did not perform the activity before the current illness, exacerbation or injury. 10-Not Attempted due to Environmental Limitations-(lack of equipment, weather restraints, etc.). 88-Not Attempted due to Medical Conditions or Safety Concerns. Bed Mobility: 6 Transfers (B,C,W/C): 6 Gait: 6 Stairs: 6 Wheelchair Mobility: 9 Indoor Mobility (Ambulation): Independent Stairs: Independent Prior Devices Use: None PT Evaluation-Current Subjective Pt up in chair, agreeable. Reports she is feeling "Much better". Pt reports she has been up in room and to BR. "I just feel like I need to get my sea legs under me". Pain Numeric Pain Scale: 0-No Pain Location: No Pain Reported Pt/Family Goals Home tomorrow Objective Patient Orientation: Person, Place, Time, Situation Monitors ROM/Strength ROM Upper Extremities Grossly WFL for mobility ROM Lower Extremities Grossly WFL for mobility Strength Upper Extremities Grossly WFL for mobility Strength Lower Extremities Grossly WFL for mobility Integumentary/Posture Integumentary See nurses' notes Sensory Vision: Wears Glasses (reading) Hearing: Functional Transfers Sit to Stand (QC): 5 (SBA) Gait Does the Patient Walk?: Yes Mode of Locomotion: Walk Anticipated Mode of Locomotion: Walk Walk 10 feet (QC): 5 (SBA) Walk 50 ft with 2 Turns(QC): 5 (SBA) Distance: 50 Gait Assistive Device: None Comments/Gait Description Occasional furniture cruising but steady, no LOB. SBA for safety. Pt returned to chair with all needs met. Wheelchair Training Does the Pt Use a Wheelchair?: No Type of Wheelchair: N/A Balance Sitting Static: Normal Sitting Dynamic: Normal Standing Static: Good Standing Dynamic: Fair Assessment/Needs Pt would benefit from short term skilled PT to improve functional strength/functional activity tolerance to allow safe return home. Pt reports near PLOF. Rehab Potential: Good PT Short Term Goals Short Term Goals Time Frame: Sep 26, 2022 Roll Left & Right: 6 Sit to lyin Lying to sitting on side of be: 6 Sit to stand: 6 Chair/dch-jw-txzof transfer: 6 PT Residential Goals Car Rental Sales Assistant Goals PT Car Rental Sales Assistant Goals Time Frame: Sep 30, 2022 Roll Left & Right (QC): 6 Sit to Lying (QC): 6 Lying-Sitting on Side/Bed(QC): 6 Sit to Stand (QC): 6 Chair/Dqn-uy-Spbsm Xfer(QC): 6 Toilet Transfer (QC): 6 Car Transfer (QC): 6 Does the Patient Walk: Yes Walk 10 feet (QC): 6 Walk 50ft with 2 Turns (QC): 6 Walk 150 ft (QC): 6 Walking 10ft on Uneven Surface: 6 1 Step (curb) (QC): 6 4 Steps (QC): 6 12 Steps (QC): 6 Picking up an Object (QC): 6 Does the Pt use WC or Scooter?: No Type: N/A Type: N/A PT LTGs established to allow safe return home. PT Plan Problem List Problem List: Activity Tolerance, Functional Strength, Safety, Balance, Gait, Transfer, Bed Mobility Treatment/Plan Treatment Plan: Continue Plan of Care Treatment Plan: Bed Mobility, Education, Functional Activity Gretchen, Functional Strength, Gait, Safety, Therapeutic Exercise, Transfers Treatment Duration: Sep 30, 2022 Frequency: 6 times per week Estimated Hrs Per Day: .25 hour per day Patient and/or Family Agrees t: Yes Safety Risks/Education Teaching Recipient: Patient Teaching Methods: Discussion Response to Teaching: Verbalize Understanding PT POC Discharge Recommendations Therapy Discharge Recommendati: Home & Family Time Time In: 1328 Time Out: 1338 DATE: Sep 23, 2022 Total Billed Treatment Time: 10 Total Billed Treatment 1, GIRISH x 10' ANNE DALE DPT Sep 23, 2022 14:42
[2022-09-23] MEDS: ASPIRIN E.C. 81 MG (ECOTRIN) TAB PO SCH (20:22)
[2022-09-23] MEDS: MONTELUKAST 10 MG (SINGULAIR) TAB PO SCH (20:22)
[2022-09-23] MEDS: LATANOPROST 0.005% (XALATAN) OPHTH SOLN 2.5 ML OU SCH (20:22)
[2022-09-23] MEDS: traZODone 50 MG (DESYREL) TAB PO SCH (20:22)
[2022-09-24 04:44] LABS: BASOPHILS # (AUTO) 0.1 10^3/uL (0.0-0.1); BASOPHILS % (AUTO) 1 % (0-10); EOSINOPHILS # (AUTO) 0.2 10^3/uL (0.0-0.3); EOSINOPHILS % (AUTO) 2 % (0-10); HEMATOCRIT 38 % (35-52); HEMOGLOBIN 12.5 g/dL (11.5-16.0); LYMPHOCYTES # (AUTO) 1.2 10^3/uL (1.0-4.0); LYMPHOCYTES % (AUTO) 18 % (12-44); MEAN CORPUSCULAR HEMOGLOBIN 30 pg (25-34); MEAN CORPUSCULAR HGB CONC 33 g/dL (32-36); MEAN CORPUSCULAR VOLUME 91 fL (80-99); MEAN PLATELET VOLUME 10.6 fL (9.0-12.2); MONOCYTES # (AUTO) 0.7 10^3/uL (0.0-1.0); MONOCYTES % (AUTO) 11 % (0-12); NEUTROPHILS # (AUTO) 4.5 10^3/uL (1.8-7.8); NEUTROPHILS % (AUTO) 67 % (42-75); PLATELET COUNT 363 10^3/uL (130-400); WHITE BLOOD COUNT 6.7 10^3/uL (4.3-11.0)
[2022-09-24 05:01] LABS: POTASSIUM 4.2 MMOL/L (3.6-5.0)
[2022-09-24 05:02] LABS: CALCIUM 8.8 MG/DL (8.5-10.1)
[2022-09-24 05:06] LABS: PHOSPHORUS 4.2 MG/DL (2.3-4.7)
[2022-09-24 05:07] LABS: CREATININE SERUM 0.98 MG/DL (0.60-1.30)
[2022-09-24 05:09] LABS: MAGNESIUM 1.8 MG/DL (1.6-2.4)
[2022-09-24] MEDS: CATHETER FLUSH 10 ML SYR IV SCH (06:16)
[2022-09-24] MEDS: RT--FLUTICASONE/SALMETEROL 232-14 (AIRDUO RespiCLICK) IH SCH (06:36)
[2022-09-24] MEDS: AMIODARONE 200 MG (CORDARONE) TAB PO SCH (08:47)
[2022-09-24] MEDS: APIXABAN 5 MG (ELIQUIS) TABLET PO SCH (08:47)
[2022-09-24] MEDS: SILDENAFIL 20 MG (REVATIO) TAB PO SCH (08:47)
--- NOTE | 2022-09-24 09:42 | Tele-ICU Progress Note ---
Progress Note video rounds completed 77 y/o female with a fib and RVR Being followed by cardiology On PO amiodarone and carvedelol ON Apixaban for strok erisk Currently in NSR VVV NSR, no ectopy IMP: a fib/ rvr, resolved PLAN: cont as per cardiology recs Focused Exam Height, Weight, BMI Height: 5'5.00" Weight: 182lbs. 0.0oz. 82.526590kd; 29.12 BMI Method: Labs Laboratory Tests 09/24/22 04:13 Results Results/Procedures Labs Laboratory Tests 09/23/22 05:17 09/24/22 04:13 Patient resulted labs reviewed. Imaging: Reviewed Imaging Report Results Labs Labs Laboratory Tests 09/24/22 04:13: White Blood Count 6.7, Red Blood Count 4.20, Hemoglobin 12.5, Hematocrit 38, Mean Corpuscular Volume 91, Mean Corpuscular Hemoglobin 30, Mean Corpuscular Hemoglobin Concent 33, Red Cell Distribution Width 14.8H, Platelet Count 363, Mean Platelet Volume 10.6, Immature Granulocyte % (Auto) 0, Neutrophils (%) (Auto) 67, Lymphocytes (%) (Auto) 18, Monocytes (%) (Auto) 11, Eosinophils (%) (Auto) 2, Basophils (%) (Auto) 1, Neutrophils # (Auto) 4.5, Lymphocytes # (Auto) 1.2, Monocytes # (Auto) 0.7, Eosinophils # (Auto) 0.2, Basophils # (Auto) 0.1, Immature Granulocyte # (Auto) 0.0, Sodium Level 135, Potassium Level 4.2, Chloride Level 102, Carbon Dioxide Level 20L, Anion Gap 13, Blood Urea Nitrogen 26H, Creatinine 0.98, Estimat Glomerular Filtration Rate 59, BUN/Creatinine Ratio 27, Glucose Level 94, Calcium Level 8.8, Phosphorus Level 4.2, Magnesium Level 1.8 Microbiology 09/22/22 MRSA Screen - Final, Complete MRSA not isolated PRERNA BARRIENTOS MD Sep 24, 2022 09:42
--- NOTE | 2022-09-24 10:03 | Tele-ICU Progress Note ---
Progress Note video rounds completed 77 y/o admitted with a fib/rvr Has now converted to NSR PE: comfortable, sitting up in chair ALll VSS, NSR IMP; a fib resolved PLAN: as per cardiology, may be DC today Focused Exam Height, Weight, BMI Height: 5'5.00" Weight: 182lbs. 0.0oz. 82.472218qc; 29.12 BMI Method: Labs Laboratory Tests 09/24/22 04:13 Results Results/Procedures Lab Laboratory Tests 09/23/22 05:17 09/24/22 04:13 Results Labs Labs Laboratory Tests 09/24/22 04:13: White Blood Count 6.7, Red Blood Count 4.20, Hemoglobin 12.5, Hematocrit 38, Mean Corpuscular Volume 91, Mean Corpuscular Hemoglobin 30, Mean Corpuscular Hemoglobin Concent 33, Red Cell Distribution Width 14.8H, Platelet Count 363, Mean Platelet Volume 10.6, Immature Granulocyte % (Auto) 0, Neutrophils (%) (Auto) 67, Lymphocytes (%) (Auto) 18, Monocytes (%) (Auto) 11, Eosinophils (%) (Auto) 2, Basophils (%) (Auto) 1, Neutrophils # (Auto) 4.5, Lymphocytes # (Auto) 1.2, Monocytes # (Auto) 0.7, Eosinophils # (Auto) 0.2, Basophils # (Auto) 0.1, Immature Granulocyte # (Auto) 0.0, Sodium Level 135, Potassium Level 4.2, Chloride Level 102, Carbon Dioxide Level 20L, Anion Gap 13, Blood Urea Nitrogen 26H, Creatinine 0.98, Estimat Glomerular Filtration Rate 59, BUN/Creatinine Ratio 27, Glucose Level 94, Calcium Level 8.8, Phosphorus Level 4.2, Magnesium Level 1.8 Microbiology 09/22/22 MRSA Screen - Final, Complete MRSA not isolated PRERNA BARRIENTOS MD Sep 24, 2022 10:03
--- NOTE | 2022-09-24 10:38 | Discharge Summary ---
Diagnosis/Chief Complaint Date of Admission Sep 22, 2022 at 09:08 Date of Discharge Admission Diagnosis atrial fib Primary Care Sarai Vieyra MD Discharge Diagnosis (1) Pulmonary hypertension (2) Asthma (3) Paroxysmal atrial fibrillation with RVR Status: Acute (4) Hypertension Status: Acute Discharge Summary Discharge Physical Exam Allergies: Coded Allergies: NILDA Inhibitors (Verified Allergy, Unknown, 08/08/22) NSAIDS (Non-Steroidal Anti-Inflamma (Verified Allergy, Unknown, 09/22/22) bupivacaine (Verified Allergy, Unknown, 09/22/22) LOW BP citalopram hydrobromide (Verified Allergy, Unknown, rebound headache and dizzy, 11/05/20) diltiazem (Verified Allergy, Unknown, RASH,ITCHING, 11/28/05) levofloxacin (Verified Allergy, Unknown, 09/22/22) omeprazole magnesium (Verified Allergy, Unknown, severe stomach ache, 11/05/20) ondansetron (Verified Allergy, Unknown, 09/22/22) LOW BP propranolol (Verified Allergy, Unknown, DEPRESSION,RASH,HEADACHE, 11/28/05) sucralfate (Verified Allergy, Unknown, RASH,ITCHING, 11/28/05) terfenadine (Verified Allergy, Unknown, SEVERE HIVES/RASH, 11/28/05) amlodipine (Verified Adverse Reaction, Intermediate, 08/10/22) Beta-Blockers (Beta-Adrenergic Bloc (Verified Adverse Reaction, Mild, doesn't take because of asthma, 09/24/22) tolerated coreg acetaminophen (Verified Adverse Reaction, Unknown, NAUSEA/HEADACHE, 11/28/05) ciprofloxacin (Unverified Adverse Reaction, Unknown, SEVERE STOMACH ACHE AND RELUX, 11/05/20) clindamycin (Unverified Adverse Reaction, Unknown, BURNING RASH ON FACE, 11/05/20) codeine (Verified Adverse Reaction, Unknown, NAUSEA/HEADACHE, 11/28/05) dicloxacillin (Unverified Adverse Reaction, Unknown, HEADACHE/NAUSEA, 11/05/20) digoxin (Verified Adverse Reaction, Unknown, JITTERY, PALPITATIONS, 11/28/05) hydrocodone (Verified Adverse Reaction, Unknown, DIZZINESS, NAUSEA, 11/28/05) medroxyprogesterone (Verified Adverse Reaction, Unknown, WT. GAIN, 11/28/05) omeprazole (Verified Adverse Reaction, Unknown, SEVERE STOMACHACHE/GALARZA, 11/28/05) oxybutynin (Unverified Adverse Reaction, Unknown, EXTREME DRY MOUTH, 11/05/20) propoxyphene (Verified Adverse Reaction, Unknown, GALARZA, N, DIZZY, 11/28/05) verapamil (Verified Adverse Reaction, Unknown, JITERY,PALPITATIONS, 11/28/05) Vitals & I&Os Vital Signs Date Time Temp Pulse Resp B/P (MAP) Pulse Ox O2 Delivery O2 Flow Rate FiO2 09/24/22 10:00 62 120/71 (81) 94 Room Air 09/24/22 08:00 16 09/24/22 07:54 36.5 General Appearance: No Apparent Distress, Chronically ill Respiratory: Lungs Clear, No Respiratory Distress Cardiovascular: Regular Rate, Rhythm, No Murmur Neurologic/Psychiatric: Alert, Oriented x3 Hospital Course Pt was admitted to the hospital secondary to atrial fibrillation with rapid ventricular rate. Due to her many allergies she was started on an amiodarone drip and did well. She was transitioned over to oral amiodarone and converted back to sinus rhythm. Coreg was added as well to help with rate control. She was up and ambulating and was asymptomatic and was able to be discharged home on amiodarone taper to follow-up with her load tallier as scheduled at the beginning of October. Labs (last 24 hrs) Laboratory Tests 09/24/22 04:13: White Blood Count 6.7, Red Blood Count 4.20, Hemoglobin 12.5, Hematocrit 38, Mean Corpuscular Volume 91, Mean Corpuscular Hemoglobin 30, Mean Corpuscular Hemoglobin Concent 33, Red Cell Distribution Width 14.8H, Platelet Count 363, Mean Platelet Volume 10.6, Immature Granulocyte % (Auto) 0, Neutrophils (%) (Auto) 67, Lymphocytes (%) (Auto) 18, Monocytes (%) (Auto) 11, Eosinophils (%) (Auto) 2, Basophils (%) (Auto) 1, Neutrophils # (Auto) 4.5, Lymphocytes # (Auto) 1.2, Monocytes # (Auto) 0.7, Eosinophils # (Auto) 0.2, Basophils # (Auto) 0.1, Immature Granulocyte # (Auto) 0.0, Sodium Level 135, Potassium Level 4.2, Chloride Level 102, Carbon Dioxide Level 20L, Anion Gap 13, Blood Urea Nitrogen 26H, Creatinine 0.98, Estimat Glomerular Filtration Rate 59, BUN/Creatinine Ratio 27, Glucose Level 94, Calcium Level 8.8, Phosphorus Level 4.2, Magnesium Level 1.8 Microbiology 09/22/22 MRSA Screen - Final, Complete MRSA not isolated Patient resulted labs reviewed. Pending Labs Laboratory Tests 09/24/22 04:13: White Blood Count 6.7, Red Blood Count 4.20, Hemoglobin 12.5, Hematocrit 38, Mean Corpuscular Volume 91, Mean Corpuscular Hemoglobin 30, Mean Corpuscular Hemoglobin Concent 33, Red Cell Distribution Width 14.8, Platelet Count 363, Mean Platelet Volume 10.6, Immature Granulocyte % (Auto) 0, Neutrophils (%) (Auto) 67, Lymphocytes (%) (Auto) 18, Monocytes (%) (Auto) 11, Eosinophils (%) (Auto) 2, Basophils (%) (Auto) 1, Neutrophils # (Auto) 4.5, Lymphocytes # (Auto) 1.2, Monocytes # (Auto) 0.7, Eosinophils # (Auto) 0.2, Basophils # (Auto) 0.1, Immature Granulocyte # (Auto) 0.0, Sodium Level 135, Potassium Level 4.2, Chloride Level 102, Carbon Dioxide Level 20, Anion Gap 13, Blood Urea Nitrogen 26, Creatinine 0.98, Estimat Glomerular Filtration Rate 59, BUN/Creatinine Ratio 27, Glucose Level 94, Calcium Level 8.8, Phosphorus Level 4.2, Magnesium Level 1.8 Imaging: Reviewed Imaging Report Discussion & Recommendations Discharge Planning: >30 minutes discharge planning Discharge Home Medications: Active Scripts Active Reported Climara Patch Weekly 0.05mg/hr (Estradiol) 0.05 Mg/24 Hour Patch.tdwk 1 Each TD SAT Finacea (Azelaic Acid) 15 % Gel..gram. 1 Applic TP DAILY PRN Protonix (Pantoprazole Sodium) 40 Mg Tablet.dr 40 Mg PO BID TAKE TWICE DAILY UNTIL 10-07-2022 Losartan Potassium 25 Mg Tablet 12.5 Mg PO DAILY TAKES OF A 25MG Amiodarone HCl 200 Mg Tablet 400 Mg PO DAILY TAKES 2 (200MG) TABS Eliquis (Apixaban) 5 Mg Tablet 5 Mg PO BID Systane Ultra 0.4-0.3% Eye Drp (Propylene Glycol/Peg 400) 0.3 %-0.4 % Drops 1-2 Drops OU UD PRN Tylenol Extra Strength (Acetaminophen) 500 Mg Tablet 1,000 Mg PO Q8H PRN Xalatan (Latanoprost) 0.005 % Drops 1 Drop OU HS Montelukast Sodium 10 Mg Tablet 10 Mg PO HS Budesonide-Formoterol 160-4.5 (Budesonide/Formoterol Fumarate) 160 Mcg-4.5 Mcg/Actuation Hfa.aer.ad 2 Puff INH BID Sildenafil (Sildenafil Citrate) 20 Mg Tablet 20 Mg PO 0800,1400,2000 Trazodone HCl 50 Mg Tablet 50 Mg PO HS Atorvastatin Calcium 40 Mg Tablet 40 Mg PO HS Furosemide 40 Mg Tablet 40 Mg PO Q72H Potassium Chloride 10 Meq Tab.er.prt 10 Meq PO Q72H Vitamin D2 (Ergocalciferol (Vitamin D2)) 1,250 Mcg Capsule 1,250 Mcg PO SUNDAY Aspirin EC (Aspirin) 81 Mg Tablet.dr 81 Mg PO HS Clonidine HCl 0.1 Mg Tablet 0.1 Mg PO DAILY PRN Instructions to patient/family Please see electronic discharge instructions given to patient. Copy Copies To 1: SARAI VIEYRA MD, KATELYN M MD Sep 24, 2022 10:38
[2022-09-24] MEDS ORDERED: CARV3.122 PO (10:39)
--- NOTE | 2022-09-24 10:40 | Discharge Inst-Simple/Standard ---
Discharge Inst-Standard Discharge Medications New, Converted or Re-Newed RX: Transmitted to Pharmacy Patient Instructions/Follow Up Plan of Care/Instructions/FU: Please continue to take your medications as written. Please follow up with your primary care doctor to follow up this hospital stay. Activity as Tolerated: Yes Discharge Diet: Cardiac Diet Return to The Hospital For: Chest pain, elevated heart rate, dizziness, shortness of breath, fever, weakness, if you feel you are getting worse. BECKI SOLOMON MD Sep 24, 2022 10:40
[2022-09-24] MEDS ORDERED: AMIO200T65 PO (10:50)
--- NOTE | 2022-09-24 11:30 | Cardiology Progress Note ---
Subjective Date Seen by Provider: Sep 24, 2022 Time Seen by Provider: 09:30 Subjective/Events-last exam No acute events overnight. Converted to NSR at HI. Follow up EKG with NSR, LBBB and HR of 60bpm. Feels much improved this AM. Objective-Cardiology Exam Last Set of Vital Signs Vital Signs 09/24/22 09/24/22 09/24/22 07:54 08:00 10:00 Temp 36.5 Pulse 62 Resp 16 B/P (MAP) 120/71 (81) Pulse Ox 94 O2 Delivery Room Air I&O Intake and Output 09/24/22 00:00 Intake Total 2040 ml Output Total 1800 ml Balance 240 ml Intake Oral 2040 ml Output Urine Total 1800 ml # Voids 6 # Bowel Movements 1 Other physical findings GENERAL: She is in no acute distress. She is resting comfortably in the bed. NECK: Soft and supple. No cervical lymphadenopathy or thyromegaly. CHEST: Lungs demonstrate rales in the bilateral bases; otherwise, no wheezing or rhonchi appreciated. CARDIOVASCULAR: Heart is RRR, No murmurs, gallops or rubs were appreciated. ABDOMEN: Positive bowel sounds, soft, nontender, nondistended. No hepatosplenomegaly. EXTREMITIES: Warm and well perfused. She has no cyanosis, clubbing or edema. SKIN: No lesions, rashes or ecchymosis noted. Results Lab Laboratory Tests 09/24/22 04:13 A/P-Cardiology Assessment/Plan ASSESSMENT AND PLAN: The patient is a 77-year-old female with the above-mentioned medical problems who presents for evaluation of palpitations with associated chest discomfort. ## AF with RVR to 130s at home; now conversted to NSR in the 60s. Allergic to cardizem. - home on Eliquis 5 bid, coreg 3.125mg po BID with amiodarone po taper (400mg po TID x 7days, 400mg po BID x 7 days, 400mg po QD x 7, then 200mg po QD thereafte r) ## Bibasilar rales. Improved this AM. - cont home lasix 40mg po QOD on 09/26/22- pt informed ## Hypertension. Blood pressures are stable in 100-120s overnight. - cont to monitor - ensure no hypotension with amiodarone po ## Coronary artery disease. - Continue with aspirin, statin ## DISPO: - up and walking in halls today - ok with discharge today and 2 week f/u with primary operator engineer AUSTIN WATTS MD Sep 24, 2022 11:30
[2022-09-24 12:22] VITALS: BP 131/75
[2022-09-26] MEDS ORDERED: FUROSEMIDE 40 MG (LASIX) TAB PO SCH (09:45)
== END 2022-09-24 12:22 | disposition home or self-care (01) | DRG 310 ==
LOC: EDUNIT# 06:14 → ER 06:17 → ICU 08:09 → OBSVTOIN 09:08
PROVIDERS: ADMIT Family Medicine; ATTEND Family Medicine
DX: I48.0 Paroxysmal atrial fibrillation (principal); I27.20 Pulmonary hypertension, unspecified; J45.909 Unspecified asthma, uncomplicated; Z79.01 Long term (current) use of anticoagulants; H40.9 Unspecified glaucoma; I25.10 Atherosclerotic heart disease of native coronary artery without angina pectoris; Z95.5 Presence of coronary angioplasty implant and graft; Z79.82 Long term (current) use of aspirin; Z79.899 Other long term (current) drug therapy; K21.9 Gastro-esophageal reflux disease without esophagitis; I50.9 Heart failure, unspecified; I11.0 Hypertensive heart disease with heart failure; J44.9 Chronic obstructive pulmonary disease, unspecified; R09.89 Other specified symptoms and signs involving the circulatory and respiratory systems; I25.2 Old myocardial infarction; G62.9 Polyneuropathy, unspecified
CPT/HCPCS: 36415; 80048; 83735; 84100; 84439; 84443; 85025; 87081; 93005; 93041; 94640; G0378

== ENCOUNTER → 2022-11-24 | Outpatient (CLI) | payer MEDICARE, BC ==
[~2022-11-24] MED LIST changes: +CARV3.122 PO; +ESTR1PAT72 TD; +LOSA25TA41 PO; +MONT-47 PO; -MONT10TA21 PO; +PANT40TA2 PO
--- NOTE | 2022-11-24 14:29 | Diagnostic Imaging Report ---
INDICATION: Routine screening. Comparison is made with prior mammogram from 11/11/2021 and 11/05/2020. 2-D and 3-D bilateral screening mammography was performed with CAD. CAD is utilized. The current study was also evaluated with a Computer Aided Detection (CAD) system. Scattered fibroglandular densities are identified bilaterally. Nodular density medial left breast is again noted. Cardiac loop recorder overlies the medial left breast. There are numerous benign calcifications scattered throughout both breasts. No new mass or malignant-appearing microcalcifications are identified. Axillae are unremarkable. IMPRESSION: BI-RADS Category 2 No mammographic features suspicious for malignancy are identified. ACR BI-RADS Category 2: Benign findings. Result letter will be mailed to the patient. Note: At least 10% of breast cancer is not imaged by mammography. Dictated by: Dictated on workstation # [id number]
== END ==
LOC: RAD 08:43
PROVIDERS: ATTEND Nurse Practitioner Family
DX: Z12.31 Encounter for screening mammogram for malignant neoplasm of breast (principal)
CPT/HCPCS: 77063; 77067

== ENCOUNTER → 2023-02-13 | Outpatient (CLI) | payer MEDICARE, BC ==
[~2023-02-13] MED LIST changes: -CYAN50003 PO; +CYAN50007 PO; -POTA10CA44 PO; +POTA10CA84 PO
== END ==
LOC: CARD 09:00
PROVIDERS: ATTEND Internal Medicine Cardiovascular Disease
DX: I27.21 Secondary pulmonary arterial hypertension (principal)
CPT/HCPCS: 93306

== ENCOUNTER → 2023-03-13 | Outpatient (CLI) | payer MEDICARE, BC | LOC: RT 09:00 | PROVIDERS: ATTEND Internal Medicine Critical Care Medicine | DX: I27.23 Pulmonary hypertension due to lung diseases and hypoxia (principal) | CPT/HCPCS: 94621 ==